=== PATIENT | female | born 2000 | race Two or more races ===

== ENCOUNTER 2019-11-20 18:46 | Outpatient (CLI) | payer SELFPAY ==
[2019-11-20 18:55] VITALS: BP 108/63; PULSE 85
[2019-11-20 19:25] VITALS: BP 108/63; PULSE 77; RESP 16; TEMP 36.6
[2019-11-20 19:26] VITALS: BP 108/63; PULSE 77; RESP 16; TEMP 36.6
[2019-11-20 19:42] VITALS: BMI 32.8
== END 2019-11-20 19:50 | disposition home or self-care (01) ==
LOC: OPOB 18:47 → OBGYN 18:49
PROVIDERS: Visit Provider Family Medicine
DX: O26.899 Other specified pregnancy related conditions, unspecified trimester (principal); Z3A.00 Weeks of gestation of pregnancy not specified; R10.9 Unspecified abdominal pain
CPT/HCPCS: 59025; 99211

== ENCOUNTER 2020-03-05 00:54 | Emergency (ER) | payer SELFPAY ==
[2020-03-05 01:05] VITALS: BP 105/68; PULSE 82; RESP 14; TEMP 36.8; O2SAT 92; BMI 25.8
[2020-03-05 01:39] LABS: HCG Qualitative Urine. Negative (Negative)
--- NOTE | 2020-03-05 01:55 | USR_ITS ---
PROCEDURE INFORMATION: Exam: US Abdomen Complete Exam date and time: 03/05/2020 3:26 AM Age: 19 years old Clinical indication: Abdominal pain; Acute; Patient HX: N? V with epigastric pain TECHNIQUE: Imaging protocol: Real-time ultrasound of the abdomen with image documentation. COMPARISON: No relevant prior studies available. FINDINGS: Liver: Normal. No mass. Gallbladder: Normal. No gallstones. There is no gallbladder wall thickening. Common bile duct: Normal. No stones. No dilation. Pancreas: Visualized pancreas is unremarkable. Right kidney: Normal. No mass. No hydronephrosis. Left kidney: Normal. No mass. No hydronephrosis. Spleen: Normal. No splenomegaly. Aorta: Normal. No aneurysm. Inferior vena cava: Normal. US/US abdomen complete* [id number] IMPRESSION: No acute findings.
[2020-03-05 02:00] LABS: Basophils % 0.3 %; Eosinophils # 0.2 10^3/uL (0.0-0.8); Hematocrit 42.5 % (37.0-47.0); Hemoglobin 13.6 g/dL (11.5-15.3); Lymphocytes # 2.6 10^3/uL (1.5-6.5); Lymphocytes % 38.4 %; Mean Corpuscular Hemoglobin 27.5 pg (28.0-34.0); Mean Corpuscular Volume 85.9 fL (81-99); Mean Platelet Volume 11.5 fL (7.4-10.4); Monocytes # 0.4 10^3/uL (0.2-0.9); Monocytes % 6.4 %; Neutrophils # 3.45 10^3/uL (1.8-8.0); Neutrophils % 51.8 %; Nucleated Red Blood Cells % 0 %; Platelet Count 269 10^3/cmm (130-400); Red Blood Count 4.95 10^6/uL (4.1-5.3); Red Cell Distribution Width 14.1 % (12.1-15.1); White Blood Count 6.7 10^3/uL (4.5-13.0)
[2020-03-05 02:08] LABS: Add Urine Microscopic? NO; Bilirubin Urine Neg (Negative); Blood Urine Neg (Negative); Glucose Urine UA Norm (Normal); Ketones Urine 1+ (Negative); Leukocyte Esterase Urine Negative (Negative); Nitrate Urine Negative (Negative); Protein Urine Neg (Negative); Specific Gravity, Urine 1.025 (1.005-1.030); Urine Appearance Clear (CLEAR); Urine Color Yellow (Yellow); Urobilinogen Urine Norm (Negative); pH Urine 5 (5-7)
[2020-03-05 02:25] LABS: Alanine Aminotransferase 10 U/L (0-33); Albumin Level 4.2 g/dL (3.5-5.2); Alkaline Phosphatase 115 IU/L (35-105); Anion Gap 12.8 (5-19); Aspartate Amino Transferase 13 U/L (0-32); Blood Urea Nitrogen 12 mg/dL (6-20); Calcium 9.2 mg/dL (8.5-10.5); Carbon Dioxide 24 mmol/L (22-29); Chloride 106 mmol/L (98-107); Glomerular Filtration Rate 157.3 mL/min (90-130); Glucose 99 mg/dL (65-115); Lipase 30 U/L (13-60); Osmolality Calculated 288 mOsm/kg (285-295); Potassium 3.8 mmol/L (3.5-5.1); Sodium 139 mmol/L (136-145); Total Bilirubin 0.2 mg/dL (0.15-1.2); Total Protein 7.2 g/dL (6.6-8.7)
--- NOTE | 2020-03-05 02:26 | ED_ITS ---
HPI - Abdominal Pain General: Chief Complaint: Abdominal Pain Stated Complaint: vomiting/severe upper abd pain/will need drMalgorzatanote Time Seen by Provider: 03/05/20 01:39 Source: patient Mode of arrival: ambulatory Limitations: no limitations History of Present Illness: HPI narrative: Sherman is a very nice 19-year-old female who comes in complaining of upper abdominal pain. She states the pain started tonight between 8 and 830 and continues. She has been very nauseated and has thrown up 5 times. She describes the pain is primarily the epigastric and the left upper quadrant. She states the pain feels some like labor pains with cramping but not quite as intense. She denies any fevers, chills, chest pain, shortness of breath or other complaint. Patient has no vaginal discharge or bleeding, no flank pain and denies any urinary symptoms such as urinary frequency/urgency or dysuria. Patient is unaware of anything that makes her symptoms better or worse. Associated Symptoms: Reports nausea and vomiting; Denies chills, coffee ground emesis, constipation, GI cramping, diarrhea, dysu russell, fever(s), heartburn, hematochezia, hematuria, hematemesis, melena and syncope Review of Systems Const: Denies: fever(s), chills, body aches, fatigue, malaise or diaphoresis Eyes: Denies: change in vision, blurry vision, photophobia, eye discomfort, eye discharge, eye redness or yellow eyes ENMT: Denies: throat pain, odynophagia, hoarseness, swelling of lips/tongue, ear or mastoid pain, ear discharge, change in hearing or nasal discharge Card: Denies: chest pain, palpitations, irregular heart rhythm, edema, lightheadedness, syncope, pre-syncope, dyspnea on exertion or orthopnea Resp: Denies: dyspnea, productive cough, non-productive cough, wheezing, hemoptysis or chest congestion GI: Reports: abdominal pain, nausea and vomiting; Denies: hematemesis, coffee ground emesis, heartburn, diarrhea, constipation, GI cramping, hematochezia or melena : Denies: flank pain, dysuria, urinary frequency, urinary urgency or hematuria Musc: Denies: neck pain, back pain, extremity pain, extremity swelling, joint pain, joint swelling, joint redness, joint warmth or joint stiffness Skin/Breast: Denies: rash, pruritus, erythema, skin pain or skin tenderness Neuro: Denies: headache(s), numbness in extremities, weakness in extremities, sensory changes, lack of coordination, difficulty walking, dizziness, vertigo, confusion, Slurred speech present or seizure-like activity Vivek/Lymph: Denies: easy bruising, easy bleeding, petechiae, purpura or enlarged lymph nodes All/Imm: Denies: urticaria, throat swelling, tongue swelling, facial swelling or acute wheezing PFSH ED PFSH: Medical History No pertinent past medical history Surgical History No pertinent past surgical history Female Reproductive History: : 2 Physical Exam Const: COMMON NORMALS: no acute distress, patient oriented x3, no limitations and alert GENERAL APPEARANCE: cooperative HENMT: COMMON NORMALS: normocephalic, atraumatic, external ears normal, EAC's normal and Normal external nose present HEAD & SCALP: normal to inspection, normocephalic and atraumatic FACE & SINUS: normal facial exam and face symmetric NOSE: Normal external nose present and Normal nares present EXTERNAL EAR: Yes external ears normal EXTERNAL AUDITORY CANAL: EAC's normal MOUTH: Normal oral and palatal mucosa present, lip normal and tongue normal Eye: COMMON NORMALS: Equal, round and reactive pupils present and conjunctivae normal GENERAL EYE: appearance normal, both eyes and all related structures ALIGNMENT: Yes alignment normal PERIORBITAL: periorbital findings normal EYELID: eyelids normal CONJUNCTIVA: Yes conjunctivae normal SCLERA: sclerae normal PUPIL: Yes Equal, round and reactive pupils present Neck/C-Spine: COMMON NORMALS: full ROM, no lymphadenopathy, supple, no meningeal signs and no JVD GENERAL: Yes normal visual inspection and Yes trachea midline Chest: COMMONS NORMALS: normal inspection of the chest and normal palpation of entire chest wall Resp: COMMON NORMALS: normal respiratory effort, No retractions, No use of accessory muscles and clear to auscultation bilaterally EFFORT & INSPECTION: Yes able to speak in complete sentences and Yes symmetric chest movement AUSCULTATION: clear to auscultation bilaterally, no crackles, no rales, no rhonchi and no wheezes Cardio: COMMON NORMALS: no JVD, regular rate, regular rhythm, S1 normal heart sound present and S2 normal heart sound present RATE: regular rate RHYTHM: regular rhythm HEART SOUNDS: S1 normal heart sound present, S2 normal heart sound present, no click, no gallops, no murmurs and no rubs GI: COMMON NORMALS: Soft to palpation and No hepatosplenomegaly present PALPATION: Yes Soft to palpation, No Tenderness to palpation present (GI), No Guarding due to palpation present (GI), No Rigid due to palpation, Yes No hepatosplenomegaly present, No Hernia present, No Palpable mass present and No Pulsatile mass present : COMMON NORMALS: Yes no CVA tenderness BLADDER/KIDNEY EXAM: Yes no CVA tenderness EXTERNAL FEMALE EXAM: No Hernia present Back/Pelvis: COMMON NORMALS: no CVA tenderness, thoracic and lumbar spine normal to inspection, no thoracic nor lumbar tenderness and thoraco-lumbar ROM normal Extremity: COMMON NORMALS: normal to inspection, full ROM, capillary refill normal, no joint enlargement, no clubbing, cyanosis or edema and no calf tenderness Neuro: COMMON NORMALS: patient oriented x3, CN's II-XII intact bilaterally, moves all extremities, no focal motor deficits and no sensory deficits noted SENSORIUM/ORIENTATION: Yes alert MENINGEAL SIGNS: Yes no meningeal signs SPEECH: speech normal Psych: COMMON NORMALS: mental status grossly normal, Normal thought process present, cooperative, normal affect, speech normal and activity/motor behavior normal SPEECH: Yes normal speech THOUGHT PROCESS: Normal thought process present Skin: COMMON NORMALS: no rashes or lesions noted, turgor normal, no jaundice, no petechiae and no mottling GENERAL SKIN EXAM: no rashes or lesions noted and turgor normal Course Vital Signs: Vital signs: Vital Signs Temperature 98.2 F 03/05/20 01:05 Pulse Rate 64 03/05/20 04:30 Respiratory Rate 17 03/05/20 02:36 Blood Pressure 111/74 03/05/20 04:30 Pulse Oximetry 99 03/05/20 04:30 MDM - Abdominal Pain MDM Narrative: Medical decision making narrative: Sherman is a very nice 19-year-old female comes in with a complaint of left upper quadrant and epigastric pain. Patient has not vomited here and her labs are unremarkable. Ultrasound is unremarkable. The feels likely more gastritis. Patient is not with significant tenderness to suggest diverticulitis. The pain is in the opposite side of the abdomen from the appendix and I think appendicitis is unlikely. Patient has no pain McBurney's point. Differential diagnosis for this pain is extensive including gastritis, peptic ulcer disease, pancreatitis, gastroenteritis among many others. At this time with her pain resolved and her labs and work-up to this point normal I believe the patient can safely be discharged. She agrees to return should her symptoms change or worsen but she will follow-up with the doctor as an outpatient if her pain returns. Patient also understands she return here at any time should her symptoms change or worsen. Differential Diagnosis: Differential diagnosis abdominal pain: Likely abdominal pain, constipation, diverticulitis, gastroenteritis, pancreatitis and small bowel obstruction Lab Data: Attestation: I reviewed the patient's lab results. Labs: Lab Results 03/05/20 03/05/20 03/05/20 Range/Units 01:16 01:16 01:57 WBC 6.7 (4.5-13.0) 10^3/ uL RBC 4.95 (4.1-5.3) 10^6/u L Hgb 13.6 (11.5-15.3) g/dL Hct 42.5 (37.0-47.0) % MCV 85.9 (81-99) fL MCH 27.5 L (28.0-34.0) pg MCHC 32.0 (30.0-36.0) g/dL RDW 14.1 (12.1-15.1) % Plt Count 269 (130-400) 10^3/c mm MPV 11.5 H (7.4-10.4) fL Neut % (Auto) 51.8 % Lymph % (Auto) 38.4 % [place] % (Auto) 6.4 % Eos % (Auto) 3.0 % Baso % (Auto) 0.3 % Neut # (Auto) 3.45 (1.8-8.0) 10^3/u L Lymph # (Auto) 2.6 (1.5-6.5) 10^3/u L [place] # (Auto) 0.4 (0.2-0.9) 10^3/u L Eos # (Auto) 0.2 (0.0-0.8) 10^3/u L Baso # (Auto) 0.0 (0.0-0.1) 10^3/u L Nucleated RBC % (a uto) 0 % Nucleated RBCs # 0.0 /100WBC Sodium (136-145) mmol/L Potassium (3.5-5.1) mmol/L Chloride (98-107) mmol/L Carbon Dioxide (22-29) mmol/L Anion Gap (5-19) BUN (6-20) mg/dL Creatinine (0.5-0.9) mg/dL GFR Calculation (90-130) mL/min Glucose (65-115) mg/dL Calculated Osmolal ity (285-295) mOsm/k g Calcium (8.5-10.5) mg/dL Total Bilirubin (0.15-1.2) mg/dL AST (0-32) U/L ALT (0-33) U/L Alkaline Phosphata se (35-105) IU/L Total Protein (6.6-8.7) g/dL Albumin (3.5-5.2) g/dL Globulin (1.3-4.6) g/dL Lipase (13-60) U/L HCG, Qual Negative (Negative) Urine Color Yellow (Yellow) Urine Appearance Clear (CLEAR) Urine pH 5 (5-7) Ur Specific Gravit y 1.025 (1.005-1.030) Urine Protein Neg (Negative) Urine Glucose (UA) Norm (Normal) Urine Ketones 1+ H (Negative) Urine Blood Neg (Negative) Urine Nitrate Negative (Negative) Urine Bilirubin Neg (Negative) Urine Urobilinogen Norm (Negative) mg/dL Ur Leukocyte Kasia ase Negative (Negative) 03/05/20 Range/Units 01:57 WBC (4.5-13.0) 10^3/ uL RBC (4.1-5.3) 10^6/u L Hgb (11.5-15.3) g/dL Hct (37.0-47.0) % MCV (81-99) fL MCH (28.0-34.0) pg MCHC (30.0-36.0) g/dL RDW (12.1-15.1) % Plt Count (130-400) 10^3/c mm MPV (7.4-10.4) fL Neut % (Auto) % Lymph % (Auto) % [place] % (Auto) % Eos % (Auto) % Baso % (Auto) % Neut # (Auto) (1.8-8.0) 10^3/u L Lymph # (Auto) (1.5-6.5) 10^3/u L [place] # (Auto) (0.2-0.9) 10^3/u L Eos # (Auto) (0.0-0.8) 10^3/u L Baso # (Auto) (0.0-0.1) 10^3/u L Nucleated RBC % (a uto) % Nucleated RBCs # /100WBC Sodium 139 (136-145) mmol/L Potassium 3.8 (3.5-5.1) mmol/L Chloride 106 (98-107) mmol/L Carbon Dioxide 24 (22-29) mmol/L Anion Gap 12.8 (5-19) BUN 12 (6-20) mg/dL Creatinine 0.5 (0.5-0.9) mg/dL GFR Calculation 157.3 H (90-130) mL/min Glucose 99 (65-115) mg/dL Calculated Osmolal ity 288 (285-295) mOsm/k g Calcium 9.2 (8.5-10.5) mg/dL Total Bilirubin 0.2 (0.15-1.2) mg/dL AST 13 (0-32) U/L ALT 10 (0-33) U/L Alkaline Phosphata se 115 H (35-105) IU/L Total Protein 7.2 (6.6-8.7) g/dL Albumin 4.2 (3.5-5.2) g/dL Globulin 3.0 (1.3-4.6) g/dL Lipase 30 (13-60) U/L HCG, Qual (Negative) Urine Color (Yellow) Urine Appearance (CLEAR) Urine pH (5-7) Ur Specific Gravit y (1.005-1.030) Urine Protein (Negative) Urine Glucose (UA) (Normal) Urine Ketones (Negative) Urine Blood (Negative) Urine Nitrate (Negative) Urine Bilirubin (Negative) Urine Urobilinogen (Negative) mg/dL Ur Leukocyte Kasia ase (Negative) Imaging Data ^: US: My impression: Ultrasound abdomen, tech interpretation -no acute findings. Discharge Plan Discharge Patient Disposition: Home Clinical Impression: Abdominal pain Qualifiers: Abdominal location: upper abdomen, unspecified Qualified Code(s): R10.10 - Upper abdominal pain, unspecified Condition: Stable Prescriptions: New Zofran 4 mg tablet 4 mg PO Q6H PRN (Reason: nausea and vomiting) Qty: 20 RF: 0 Protonix 40 mg tablet,delayed release (DR/EC) 40 mg PO DAILY Qty: 30 RF: 0 Discharge Orders: Discharge ED (Routine); Ordered 03/05/20 Ordered By: Jacque Yang Referrals: Joel Zamora MD [Physician] - 1-3 days Discharge Diet: Advance as tolerated and Clear Liquid Discharge Activity: Increase activity as tolerated Patient Instructions: Abdominal Pain (ED) Activity Restrictions/Additional Instructions: Please return to the ER immediately for any of the signs or symptoms listed on your discharge instruction sheets, worsening/changing of your symptoms, you are not getting better as quickly as expected, or for ANY other cause or concerns. If your pain migrates to the lower part of your abdomen, he develop a fever, you can stop vomiting, or you have any other concerns please return to the ER immediately for recheck. Stand Alone Forms: Work/School Release Coding Level of Care Code ED Firestopper Installer for Ceci Fwd Exam Comprehensive
[2020-03-05] MEDS: ondansetron 2 mg/ML SDV 2 mL 4 MG IVP (02:29)
[2020-03-05] MEDS: sodium chloride 0.9% 1,000 ML 999 ML IV (02:29)
[2020-03-05] MEDS: morphine 4 mg/mL SDV 1 mL IVP (02:33)
[2020-03-05 02:36] VITALS: BP 100/68; PULSE 63; RESP 17; O2SAT 98
[2020-03-05] MEDS: acetaminophen 500 mg Tablet 1000 MG PO (04:29)
[2020-03-05 04:30] VITALS: BP 111/74; PULSE 64; O2SAT 99
== END 2020-03-05 04:30 | disposition home or self-care (01) ==
PROVIDERS: Nurse Practitioner Family; Emergency Provider Emergency Medicine
DX: R10.10 Upper abdominal pain, unspecified (principal)
CPT/HCPCS: 12345; 76700; 80053; 81003; 81025; 83690; 85025; 96374; 96375; 99282; 99283; J2270; J2405; J7030

== ENCOUNTER 2020-04-16 14:28 | Emergency (ER) | payer SELFPAY ==
[2020-04-16 14:51] VITALS: BP 105/70; PULSE 67; RESP 14; TEMP 36.3; O2SAT 98; BMI 25.8
--- NOTE | 2020-04-16 14:52 | W.ED.EXTPRO ---
HPI - Extremity Problem General: Chief complaint: Extremity Problem,Nontraumatic Stated complaint: R HIP INJURY/WORK RELATED Time Seen by Provider: 04/16/20 14:52 Source: patient Mode of arrival: ambulatory Limitations: no limitations History of Present Illness: HPI Narrative: Patient comes in for evaluation of right hip discomfort. 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 Causing her right hip to displace. Patient reports that when she got the patient back to bed she walked a little bit and the hip seemed to go back into place. Patient denies any pain or discomfort to the area. But since patient made incident report at her place of employment and ultimate surgery she was recommended to have further evaluation in order to return to work. Patient appears well. Patient appears no acute distress. Review of Systems General: Reports: 10 or more systems reviewed and unremarkable except in HPI and below Musc: Reports: other (Right hip injury) [facility] ED PFSH: Medical History No pertinent past medical history Surgical History No pertinent past surgical history Physical Exam Const: COMMON NORMALS: no acute distress and patient oriented x3 GENERAL APPEARANCE: cooperative HENMT: COMMON NORMALS: normocephalic and Normal external nose present HEAD & SCALP: normal to inspection and normocephalic NOSE: Normal external nose present MOUTH: Normal oral and palatal mucosa present Eye: GENERAL EYE: appearance normal, both eyes and all related structures Neck/C-Spine: COMMON NORMALS: full ROM Lymph: LYMPHATIC: no lymphadenopathy noted Chest: COMMONS NORMALS: normal inspection of the chest Resp: COMMON NORMALS: normal respiratory effort EFFORT & INSPECTION: Yes able to speak in complete sentences Cardio: COMMON NORMALS: regular rate and regular rhythm RATE: regular rate RHYTHM: regular rhythm GI: COMMON NORMALS: non-tender : COMMON NORMALS: Yes no CVA tenderness BLADDER/KIDNEY EXAM: Yes no CVA tenderness Back/Pelvis: COMMON NORMALS: no CVA tenderness and thoracic and lumbar spine normal to inspection Extremity: NARRATIVE EXTREMITY EXAM: Patient is able to perform range of motion without difficulty or distress. Patient has normal weightbearing. No spinal tenderness is noted. Neuro: COMMON NORMALS: patient oriented x3 and moves all extremities Psych: COMMON NORMALS: mental status grossly normal and cooperative Skin: COMMON NORMALS: no rashes or lesions noted GENERAL SKIN EXAM: no rashes or lesions noted Course Vital Signs: Vital signs: Vital Signs Temperature 97.4 F L 04/16/20 14:51 Pulse Rate 65 04/16/20 15:00 Respiratory Rate 16 04/16/20 15:00 Blood Pressure 105/70 04/16/20 15:00 Pulse Oximetry 97 04/16/20 15:00 MDM - Extremity (Nontraumatic) MDM Narrative: Medical decision making narrative: Patient came in for evaluation after injury to the right hip. On exam patient has no tenderness or obvious deformity to the hip or right lower extremity. Patient has normal range of motion. Patient has normal weightbearing and ambulation without difficulty. Vital signs are normal. Differential diagnosis includes strain, sprain, dislocation, degenerative joint disease. Reviewed exam with patient with recommendations for treatment and return to work. Patient reported understanding. Discharge Plan Discharge Patient Disposition: Home Clinical Impression: Hip sprain Qualifiers: Encounter type: initial encounter Laterality: right Qualified Code(s): S73.101A - Unspecified sprain of right hip, initial encounter Condition: Stable Prescriptions: No Action Zofran 4 mg tablet 4 mg PO Q6H PRN (Reason: nausea and vomiting) Qty: 20 RF: 0 Protonix 40 mg tablet,delayed release (DR/EC) 40 mg PO DAILY Qty: 30 RF: 0 Discharge Orders: Discharge ED (Routine); Ordered 04/16/20 Ordered By: Yoni Morel Referrals: Bea Johnson FNP-C [Primary Care Provider] - Discharge Diet: Usual diet Discharge Activity: Increase activity as tolerated Patient Instructions: Sprains Activity Restrictions/Additional Instructions: Activity as tolerated. Gentle stretching and range of motion exercises. Ice or heat to the area for comfort. Acetaminophen or ibuprofen for pain. Follow-up with primary care as needed. Return to the emergency department for new concerns. Stand Alone Forms: Work/School Release Coding Level of Care Code ED Clinical Laboratory Medical Director for Ceci Vallecillo
[2020-04-16 15:00] VITALS: BP 105/70; PULSE 65; RESP 16; O2SAT 97
--- NOTE | 2020-04-16 15:07 | PC.NURSE ---
Read and agree with assessment
== END 2020-04-16 15:13 | disposition home or self-care (01) ==
PROVIDERS: Emergency Provider Nurse Practitioner Family; PCP Nurse Practitioner Family
DX: S73.101A Unspecified sprain of right hip, initial encounter (principal); W03.XXXA Other fall on same level due to collision with another person, initial encounter; Y99.0 Civilian activity done for income or pay; Y93.F9 Activity, other caregiving
CPT/HCPCS: 12345; 99281

== ENCOUNTER 2020-07-12 09:45 | Emergency (ER) | payer SELFPAY ==
[2020-07-12 10:35] VITALS: BP 110/73; PULSE 69; RESP 16; TEMP 36.6; O2SAT 100; BMI 27.4
[2020-07-12 10:39] VITALS: BP 110/62; PULSE 68; RESP 18; O2SAT 96
--- NOTE | 2020-07-12 11:02 | ED_ITS ---
HPI - Female Genitourinary General: Chief complaint: General Medical Stated complaint: poss blood clotting, no period for 3 months Time Seen by Provider: 07/12/20 10:45 Source: patient Mode of arrival: ambulatory Limitations: no limitations History of Present Illness: HPI Narrative: Patient is a 19-year-old female who presents to ED today with a complaint of missed periods over the past 2 to 3 months. Patient tells me she is approximately 7 months post . She states periods returned fairly quickly following the of her son however states over the past 2 to 3 months she has not had period. She states she is currently trying for another child but took a home test that was negative. She tells me at the age of 13 she had a few months where she missed her period and states she was hospitalized for some type of clotting problem in her uterus. She states she was having lower abdominal/pelvic pain at the time which she is not having now. She is completely asymptomatic at the time. She does not complain of vaginal discharge or odor. No dysuria. No itching, burning, rashes/lesions. MD elicited complaint: delayed menses Onset (ago): month(s) Quality of pain: other (none) Vaginal discharge: none Vaginal bleeding: none Exacerbating factors: none Relieving factors: none Associated symptoms: Reports no associated symptoms; Deny abdominal pain, headache(s), nausea or vaginal discharge Treatment prior to arrival: none Sexual activity: Yes Patient : No Date of Last Menstrual Period: 04/11/20 Review of Systems Const: Denies: fever(s), chills, body aches, fatigue or malaise Card: Denies: chest pain Resp: Denies: dyspnea GI: Denies: abdominal pain, nausea, vomiting or diarrhea : Reports: irregular period and amenorrhea; Denies: flank pain, difficulty voiding, dysuria, urinary frequency, urinary urgency, urinary hesitancy, hematuria, genital lesions, genital pruritis, vaginal odor, vaginal bleeding, vaginal discharge, dysmenorrhea, metrorrhagia, pelvic pain or dyspareunia Musc: Denies: back pain Skin/Breast: Denies: rash Neuro: Denies: headache(s) PFSH ED PFSH: Medical History No pertinent past medical history Surgical History No pertinent past surgical history Female Reproductive History: Date of last menstrual period: 04/11/20 Physical Exam Const: COMMON NORMALS: no acute distress, average body habitus, patient oriented x3, no limitations, healthy appearing, alert and well nourished Resp: COMMON NORMALS: normal respiratory effort and clear to auscultation bilaterally AUSCULTATION: clear to auscultation bilaterally Cardio: COMMON NORMALS: regular rate and regular rhythm RATE: regular rate RHYTHM: regular rhythm GI: COMMON NORMALS: Normal to inspection, nondistended, normoactive bowel sounds present, Soft to palpation, non-tender, No hepatosplenomegaly present and no masses PALPATION: Yes Soft to palpation and Yes No hepatosplenomegaly present : COMMON NORMALS: Yes no CVA tenderness BLADDER/KIDNEY EXAM: Yes no CVA tenderness Back/Pelvis: COMMON NORMALS: no CVA tenderness LUMBAR SPINE/LOWER BACK: Yes normal to inspection, Yes lumbar ROM normal and No paraspinal muscle tenderness Neuro: COMMON NORMALS: patient oriented x3 SENSORIUM/ORIENTATION: Yes alert Course Vital Signs: Vital signs: Vital Signs Temperature 97.9 F 07/12/20 10:35 Pulse Rate 68 07/12/20 10:39 Respiratory Rate 18 07/12/20 10:39 Blood Pressure 110/62 07/12/20 10:39 Pulse Oximetry 96 07/12/20 10:39 MDM - Female MDM Narrative: Medical decision making narrative: Patient's test is negative. She has absolutely no physical complaints at this time. I don't feel emergent labs/imaging indicated. Explained to her that menstrual cycles can be rather sporadic . She does seemed very concerned regarding this thus I will place a referral to gynecology for further evaluation. Lab Data: Labs: Lab Results 07/12/20 Range/Units 11:05 Urine HCG, Qual Negative (Negative) Discharge Plan Discharge Patient Disposition: Home Clinical Impression: Secondary amenorrhea Condition: Stable Prescriptions: No Action Children's Tylenol 160 mg Tablet,Chewable 320 mg PO PRN RF: 0 ProAir HFA 90 mcg/actuation Hfa Aerosol Inhaler 2 puff INHALATION Q4H PRN (Reason: Shortness Of Breath) RF: 0 sumatriptan succinate 1 tab PO PRN RF: 0 Discharge Orders: Discharge ED (Routine); Ordered 07/12/20 Ordered By: Shona Kirk Coding Level of Care Code ED Facilities Engineering Manager for Chg Fwd Exam Detailed
--- NOTE | 2020-07-18 14:38 | DCPLANNER ---
talent acquisition relationship manager had message to schedule a follow up appointment for patient with [facility]. talent acquisition relationship manager called the [facility], spoke with Alysia, gave clinic patients information. talent acquisition relationship manager was told that patients information would be printed and reviewed. Clinic will call patient with appointment information.
--- NOTE | 2020-09-25 07:57 | DCPLANNER ---
Patient had a follow up appointment scheduled for 07.27.20 with [facility] - patient did not attend appointment.
== END 2020-07-12 12:46 | disposition home or self-care (01) ==
PROVIDERS: Emergency Provider Physician Assistant
DX: N91.1 Secondary amenorrhea (principal)
CPT/HCPCS: 81025; 99282

== ENCOUNTER 2020-11-02 16:27 | Emergency (ER) | payer SELFPAY ==
[2020-11-02 17:10] VITALS: PULSE 73; RESP 18; TEMP 37; O2SAT 99; BMI 28.2
--- NOTE | 2020-11-02 17:46 | ED_ITS ---
HPI - Nausea/Vomiting/Diarrhea General: Chief complaint: Nausea/Vomiting/Diarrhea Stated complaint: SYNCOPAL EPISODE, N/V, FONG Time Seen by Provider: 11/02/20 17:40 History of Present Illness: HPI Narrative: Patient presents with nausea and vomiting. Patient now reports headache. Patient does have a history of migraine headache and believes this might be a migraine. Patient does not know if she may be . Patient reports has had migraine headaches since high school after a head injury Associated symtoms: Reports headache(s) Review of Systems General: Reports: 10 or more systems reviewed and unremarkable except in HPI and below Neuro: Reports: headache(s) PFSH ED PFSH: Medical History No pertinent past medical history Surgical History No pertinent past surgical history Family History (Updated 07/27/20 @ 12:06 by Patricia Roach LPN) Denies family history of Ovarian cyst Thyroid disease Female Reproductive History: Date of last menstrual period: 04/11/20 Physical Exam Const: COMMON NORMALS: no acute distress and patient oriented x3 GENERAL APPEARANCE: cooperative HENMT: COMMON NORMALS: normocephalic and Normal external nose present HEAD & SCALP: normal to inspection and normocephalic NOSE: Normal external nose present MOUTH: Normal oral and palatal mucosa present Eye: GENERAL EYE: appearance normal, both eyes and all related structures Neck/C-Spine: COMMON NORMALS: full ROM Chest: COMMONS NORMALS: normal inspection of the chest Resp: COMMON NORMALS: normal respiratory effort EFFORT & INSPECTION: Yes able to speak in complete sentences Cardio: COMMON NORMALS: regular rate and regular rhythm RATE: regular rate RHYTHM: regular rhythm GI: COMMON NORMALS: non-tender Back/Pelvis: COMMON NORMALS: thoracic and lumbar spine normal to inspection Extremity: COMMON NORMALS: normal to inspection Neuro: COMMON NORMALS: patient oriented x3 and moves all extremities Psych: COMMON NORMALS: mental status grossly normal and cooperative Skin: COMMON NORMALS: no rashes or lesions noted GENERAL SKIN EXAM: no rashes or lesions noted Course Vital Signs: Vital signs: Vital Signs Temperature 98.6 F 11/02/20 17:10 Pulse Rate 73 11/02/20 17:10 Respiratory Rate 18 11/02/20 18:37 Pulse Oximetry 99 08/26/21 17:10 MDM - Nausea/Vomiting/Diarrhea MDM Narrative: Medical decision making narrative: 20-year-old female comes in today with some nausea and vomiting and a headache. Patient has a history of migraine headaches. Patient appears mildly unwell but nontoxic. Skin was warm and dry. Abdomen soft nontender. No tenderness was noted of the neck and negative nuchal rigidity. Differential diagnosis includes migraine headache, , gastroenteritis. Patient was given a dose of sumatriptan per injection and tolerated it well with good headache cessation response. Patient was written prescriptions for home migraine treatment. Patient will continue with routine care otherwise as directed. test was negative. Lab Data: Labs: Lab Results 11/02/20 Range/Units 17:41 Urine HCG, Qual Negative (Negative) Discharge Plan Discharge Patient Disposition: Home Clinical Impression: Migraine Qualifiers: Migraine type: unspecified Status migrainosus presence: without status migrainosus Intractability: not intractable Qualified Code(s): G43.909 - Migraine, unspecified, not intractable, without status migrainosus Condition: Stable Prescriptions: New sumatriptan succinate 50 mg tablet See Rx Instructions .ROUTE .COMPLEX Qty: 6 RF: 0 No Action Children's Tylenol 160 mg Tablet,Chewable 320 mg PO PRN RF: 0 ProAir HFA 90 mcg/actuation Hfa Aerosol Inhaler 2 puff INHALATION Q4H PRN (Reason: Shortness Of Breath) RF: 0 sumatriptan succinate 1 tab PO PRN RF: 0 Discharge Orders: Discharge ED (Routine); Ordered 11/02/20 Ordered By: Yoni Morel Discharge Diet: Usual diet Discharge Activity: Increase activity as tolerated Patient Instructions: Migraine Headache (ED), Opioid Safety Activity Restrictions/Additional Instructions: Activity as tolerated. Drink plenty of water. Use sumatriptan as needed for breakthrough headaches. Follow-up with primary care for further instructions. Return to the ER for new concerns. Coding Level of Care Code ED Engraver Ornamental Design for Ceci Fwd Exam Comprehensive
[2020-11-02] MEDS: SUMAtriptan 6 mg/0.5 mL SDV SUBCUT (18:06)
[2020-11-02 18:37] VITALS: RESP 18
--- NOTE | 2020-11-02 18:37 | PC.NURSE ---
patient states she doesnt want to wait any longer for results of urine test and wants to be discharged now as her ride is here and she has to go.
== END 2020-11-02 18:37 | disposition home or self-care (01) ==
PROVIDERS: Emergency Provider Nurse Practitioner Family
DX: G43.909 Migraine, unspecified, not intractable, without status migrainosus (principal)
CPT/HCPCS: 81025; 96372; 99283; J3030

== ENCOUNTER 2021-03-07 12:42 | Emergency (ER) | payer SELFPAY ==
--- NOTE | 2021-03-07 13:11 | US_ITS ---
WS: [id number] ULTRASOUND EARLY TECHNIQUE: Transabdominal sonography of the pelvis was performed. Followed by transvaginal sonography to better evaluate the uterus and ovaries. CLINICAL INFORMATION: /bleeding LMP: 01/17/2021 Beta hCG: Unknown. COMPARISON: None. FINDINGS: UTERUS AND GESTATIONAL SAC Intrauterine gestations: Single interuterine gestation with gestational sac and yolk sac. pole measures 4.3 mm with card iac activity. Cervix is long and closed measuring 3.6 cm. Yet sac is visualized. Estimated gestational age: 6w2d Estimated delivery October 29, 2021 Yolk sac: 0.4 cm. [place] rump length (CRL): 0.4 cm. heart motion: 122 BPM. Subchorionic hemorrhage: None. OVARIES Right ovary: Normal. Left ovary: Normal. FREE FLUID None. US/US OB transvaginal [id number] IMPRESSION: 1. Single live intrauterine with visualized cardiac activity. 2. Estimated gestational age; 6w2d 3. Cervix is long and closed measuring 3.6 CM. 4. Normal ovaries and adnexa.
[2021-03-07 14:04] VITALS: BP 105/61; PULSE 65; RESP 16; TEMP 37.1; O2SAT 99; BMI 26.1
[2021-03-07 14:31] LABS: Basophils % 0.2 %; Eosinophils # 0.1 10^3/uL (0.0-0.8); Eosinophils % 0.5 %; Hematocrit 41.4 % (37.0-47.0); Hemoglobin 13.7 g/dL (11.5-15.3); Lymphocytes # 2.2 10^3/uL (0.8-4.8); Lymphocytes % 18.1 %; Mean Corpuscular HGB Conc 33.1 g/dL (30.0-36.0); Mean Corpuscular Hemoglobin 28.8 pg (28.0-34.0); Mean Platelet Volume 10.6 fL (7.4-10.4); Monocytes # 0.7 10^3/uL (0.2-0.9); Monocytes % 5.8 %; Neutrophils # 9.03 10^3/uL (1.8-7.7); Neutrophils % 75.1 %; Nucleated Red Blood Cells % 0 %; Platelet Count 408 10^3/cmm (130-400); Red Blood Count 4.76 10^6/uL (4.1-5.3); Red Cell Distribution Width 12.5 % (12.1-15.1)
[2021-03-07 15:07] LABS: Alanine Aminotransferase 7 U/L (0-33); Albumin Level 4.3 g/dL (3.5-5.2); Alkaline Phosphatase 80 IU/L (35-105); Anion Gap 15.6 (5-19); Aspartate Amino Transferase 10 U/L (0-32); Blood Urea Nitrogen 7 mg/dL (6-20); Calcium 8.9 mg/dL (8.5-10.5); Carbon Dioxide 24 mmol/L (22-29); Chloride 102 mmol/L (98-107); Creatinine Clr Calc Pharmacy 152.1296; Globulin 3.4 g/dL (1.3-4.6); Glomerular Filtration Rate 126.2 mL/min (90-130); Glucose 67 mg/dL (65-115); Osmolality Calculated 282 mOsm/kg (285-295); Potassium 3.6 mmol/L (3.5-5.1); Sodium 138 mmol/L (136-145); Total Bilirubin 0.4 mg/dL (0.15-1.2); Total Protein 7.7 g/dL (6.6-8.7)
--- NOTE | 2021-03-07 15:49 | ED_ITS ---
HPI - Female Genitourinary General: Chief complaint: Vaginal Bleeding Stated complaint: 7 Wks preg spotting Time Seen by Provider: 03/07/21 15:40 Source: patient Mode of arrival: ambulatory Limitations: no limitations History of Present Illness: HPI Narrative: Patient is a 20-year-old female presents to ED today at approximately 7 weeks for concerns of some vaginal spotting she had 2 days ago. She has not had any bleeding since. She does not complain of any pelvic pain or abdominal pain. No vaginal discharge or vaginal odor. No concern for STDs. She has a separate complaint of nausea and vomiting that have been present over the past week. She has tried dietary changes without much relief. 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 Consistency: intermittent Vaginal discharge: none Vaginal bleeding: none Exacerbating factors: other (eating) Relieving factors: none Associated symptoms: Reports nausea; Deny abdominal pain or vaginal discharge Sexual activity: Yes Patient : Yes Date of Last Menstrual Period: 04/11/20 Review of Systems Const: Denies: fever(s), chills, body aches, fatigue or malaise Card: Denies: chest pain Resp: Denies: dyspnea GI: Reports: nausea and vomiting; Denies: abdominal pain, hematemesis, heartburn or diarrhea : Reports: vaginal bleeding (none currently); Denies: flank pain, dysuria, vaginal odor, vaginal discharge or pelvic pain Musc: Denies: back pain [facility] ED PFSH: Medical History No pertinent past medical history Surgical History No pertinent past surgical history Family History (Updated 07/27/20 @ 12:06 by Patricia Roach LPN) Denies family history of Ovarian cyst Thyroid disease Female Reproductive History: Date of last menstrual period: 04/11/20 Physical Exam Const: COMMON NORMALS: no acute distress, average body habitus, patient oriented x3, no limitations, healthy appearing, alert and well nourished GENERAL APPEARANCE: cooperative Resp: COMMON NORMALS: normal respiratory effort and clear to auscultation bilaterally AUSCULTATION: clear to auscultation bilaterally Cardio: COMMON NORMALS: regular rate and regular rhythm RATE: regular rate RHYTHM: regular rhythm GI: COMMON NORMALS: Normal to inspection, nondistended, normoactive bowel sounds present, Soft to palpation, non-tender, No hepatosplenomegaly present and no masses PALPATION: Yes Soft to palpation and Yes No hepatosplenomegaly present : COMMON NORMALS: Yes no CVA tenderness BLADDER/KIDNEY EXAM: Yes no CVA tenderness Back/Pelvis: COMMON NORMALS: no CVA tenderness Neuro: COMMON NORMALS: patient oriented x3 SENSORIUM/ORIENTATION: Yes alert Course Vital Signs: Vital signs: Vital Signs Temperature 98.8 F 03/07/21 14:04 Pulse Rate 65 03/07/21 14:04 Respiratory Rate 16 03/07/21 14:04 Blood Pressure 105/61 03/07/21 14:04 Pulse Oximetry 99 03/07/21 14:04 MDM - Female MDM Narrative: Medical decision making narrative: Patient's ultrasound showing a single live IUP at approximately 6w2d with a heart rate of 122. She is not having any vaginal bleeding or pain currently. Vital signs are normal. Lab work is unremarkable. Patient will be given a prescription for Diclegis that she can start for her nausea/vomiting. Referral placed to women's health for further/routine OB care. Strict return to ED precautions given. Lab Data: Labs: Lab Results 03/07/21 03/07/21 03/07/21 14:13 14:13 15:48 WBC 12.0 10^3/uL H 10 ^3/uL (4.0-10.0) RBC 4.76 10^6/uL 10^6 /uL (4.1-5.3) Hgb 13.7 g/dL g/dL (11.5-15.3) Hct 41.4 % % (37.0-47.0) MCV 87.0 fl fl (81-99) MCH 28.8 pg pg (28.0-34.0) MCHC 33.1 g/dL g/dL (30.0-36.0) RDW 12.5 % % (12.1-15.1) Plt Count 408 10^3/cmm H 10 ^3/cmm (130-400) MPV 10.6 fL H fL (7.4-10.4) Neut % (Auto) 75.1 % % Lymph % (Auto) 18.1 % % Amador % (Auto) 5.8 % % Eos % (Auto) 0.5 % % Baso % (Auto) 0.2 % % Neut # (Auto) 9.03 10^3/uL H 10 ^3/uL (1.8-7.7) Lymph # (Auto) 2.2 10^3/uL 10^3/ uL (0.8-4.8) Amador # (Auto) 0.7 10^3/uL 10^3/ uL (0.2-0.9) Eos # (Auto) 0.1 10^3/uL 10^3/ uL (0.0-0.8) Baso # (Auto) 0.0 10^3/uL 10^3/ uL (0.0-0.1) Nucleated RBC % (a uto) 0 % % Nucleated RBCs # 0.0 /100WBC /100W BC Sodium 138 mmol/L mmol/L (136-145) Potassium 3.6 mmol/L mmol/L (3.5-5.1) Chloride 102 mmol/L mmol/L (98-107) Carbon Dioxide 24 mmol/L mmol/L (22-29) Anion Gap 15.6 (5-19) BUN 7 mg/dL mg/dL (6-20) Creatinine 0.6 mg/dL mg/dL (0.5-0.9) GFR Calculation 126.2 mL/min mL/m in (90-130) Glucose 67 mg/dL mg/dL (65-115) Calculated Osmolal ity 282 mOsm/kg L mOs m/kg (285-295) Calcium 8.9 mg/dL mg/dL (8.5-10.5) Total Bilirubin 0.4 mg/dL mg/dL (0.15-1.2) AST 10 U/L U/L (0-32) ALT 7 U/L U/L (0-33) Alkaline Phosphata se 80 IU/L IU/L (35-105) Total Protein 7.7 g/dL g/dL (6.6-8.7) Albumin 4.3 g/dL g/dL (3.5-5.2) Globulin 3.4 g/dL g/dL (1.3-4.6) Ser , [place]nt 89[address].00 mIU/mL m IU/mL Urine Color Yellow (Yellow) Urine Appearance Clear (CLEAR) Urine pH 5 (5-7) Ur Specific Gravit y 1.025 (1.005-1.030) Urine Protein Trace (Negative) Urine Glucose (UA) Norm (Normal) Urine Ketones Negative (Negative) Urine Blood Neg (Negative) Urine Nitrate Negative (Negative) Urine Bilirubin 1+ H (Negative) Urine Urobilinogen 4 mg/dL H mg/dL (Negative) Ur Leukocyte Ksaia ase Negative (Negative) Imaging Data: US OB: Radiologist's impression: [employer] [place] [address] Ultrasound Report Signed Patient: Sherman Corona Unit #: [id number] : 2000 Age/Sex: 20 / F ADM Date: 03/07/21 Loc: ER Room/Bed: Attending Dr: Ordering Provider/Ordering MD: Shona Kirk Date of Service: 03/07/21 Procedure(s): US OB transvaginal [id number] Accession Number(s): [id number] Report Number: [id number] WS: [id number] ULTRASOUND EARLY TECHNIQUE: Transabdominal sonography of the pelvis was performed. Followed by transvaginal sonography to better evaluate the uterus and ovaries. CLINICAL INFORMATION: /bleeding LMP: 01/17/2021 Beta hCG: Unknown. COMPARISON: None. FINDINGS: UTERUS AND GESTATIONAL SAC Intrauterine gestations: Single interuterine gestation with gestational sac and yolk sac. pole measures 4.3 mm with cardiac activity. Cervix is long and closed measuring 3.6 cm. Yet sac is visualized. Estimated gestational age: 6w2d Estimated delivery October 29, 2021 Yolk sac: 0.4 cm. [place] rump length (CRL): 0.4 cm. heart motion: 122 BPM. Subchorionic hemorrhage: None. OVARIES Right ovary: Normal. Left ovary: Normal. FREE FLUID None. US/US OB transvaginal [id number] IMPRESSION: 1. Single live intrauterine with visualized cardiac activity. 2. Estimated gestational age; 6w2d 3. Cervix is long and closed measuring 3.6 CM. 4. Normal ovaries and adnexa. Dictated By: Dino Sauceda MD Signed By: Dino Sauceda MD Signed Date/Time: 03/07/21 1445 DD/ 1436 Discharge Plan Discharge Patient Disposition: Home Clinical Impression: Bleeding in early , Nausea and vomiting during Condition: Stable Prescriptions: New Diclegis 10-10 mg tablet,delayed release (DR/EC) 2 tab PO .qhs Qty: 30 RF: 0 No Action Children's Tylenol 160 mg Tablet,Chewable 320 mg PO PRN RF: 0 ProAir HFA 90 mcg/actuation Hfa Aerosol Inhaler 2 puff INHALATION Q4H PRN (Reason: Shortness Of Breath) RF: 0 sumatriptan succinate 1 tab PO PRN RF: 0 sumatriptan succinate 50 mg tablet See Rx Instructions .ROUTE .COMPLEX Qty: 6 RF: 0 Discharge Orders: Discharge ED (Routine); Ordered 03/07/21 Ordered By: Shona Kirk Activity Restrictions/Additional Instructions: As we discussed I will place a referral to women's health for further routine OB care. You may try the prescription medication in addition to dietary changes a nd avoidance of triggers to help with your nausea and vomiting during . You need to return to the emergency department for severe vaginal bleeding, severe abdominal/pelvic pain, uncontrollable nausea or vomiting despite medications, or any other concerns you may have. Coding Level of Care Code ED Marketing Development Specialist for Ceci Vallecillo
[2021-03-07 15:58] LABS: Add Urine Microscopic? NO; Charge for UA Resulting for Rev
[2021-03-07 16:06] LABS: Glucose Urine UA Norm (Normal); Ketones Urine Negative (Negative); Protein Urine Trace (Negative); Specific Gravity, Urine 1.025 (1.005-1.030); Urine Appearance Clear (CLEAR); Urine Color Yellow (Yellow); pH Urine 5 (5-7)
[2021-03-07 16:07] LABS: Bilirubin Urine 1+ (Negative); Blood Urine Neg (Negative); Leukocyte Esterase Urine Negative (Negative); Nitrate Urine Negative (Negative); Urobilinogen Urine 4 mg/dL (Negative)
--- NOTE | 2021-03-08 12:13 | DCPLANNER ---
contract associate manager had message to schedule a follow up appointment for patient with [facility]. contract associate manager called [facility], spoke with Willy, gave clinic patients information. contract associate manager was told that patients information would be printed and reviewed. Clinic will call patient with appointment information.
--- NOTE | 2021-03-15 15:29 | DCPLANNER ---
Addendum entered by Melany aHrvey 04/06/21 15:48: Patient had a follow up appointment scheduled with [facility] for 03.21.21 - patient did not attend this appointment. Original Note: Patient has a follow up appointment scheduled for Friday, March 21, 2021 at 10:45 with Kayla Patterson. Clinic will call patient with appointment information.
--- NOTE | 2021-04-17 09:51 | DCPLANNER ---
account manager trainee had message to schedule a follow up appointment for patient with [facility]. account manager trainee called [facility], spoke with Willy, gave clinic patients information. account manager trainee was told that patients information would be printed and reviewed. Willy from [facility] called briefcase sewer stating that after reviewing patients chart, that clinic will not be able to see patient due to patient having 3 no shows. The only way that clinic will see patient is if when patient is in the ER that the ER physician would have to call and speak with a physician at the clinic and get permission for patient to be seen. account manager trainee called patient and informed patient of this. Patient stated that she is working on getting insurance. account manager trainee told patient that when she got insurance, to call briefcase sewer and that briefcase sewer would help patient get established with a physician.
== END 2021-03-07 16:53 | disposition home or self-care (01) ==
PROVIDERS: Emergency Provider Physician Assistant
DX: O20.9 Hemorrhage in early pregnancy, unspecified (principal); O26.891 Other specified pregnancy related conditions, first trimester; R11.2 Nausea with vomiting, unspecified; Z3A.01 Less than 8 weeks gestation of pregnancy
CPT/HCPCS: 76817; 80053; 81003; 84702; 85025; 99283

== ENCOUNTER 2021-04-15 08:40 | Emergency (ER) | payer MEDICAID, SELFPAY ==
[2021-04-15 08:46] VITALS: BP 103/67; PULSE 69; RESP 18; TEMP 36.2; O2SAT 97; BMI 25.4
--- NOTE | 2021-04-15 08:53 | USR_ITS ---
PROCEDURE INFORMATION: Exam: US , Limited Exam date and time: 04/15/2021 8:53 AM Age: 20 years old Clinical indication: Lmp or gestational age (in weeks): 12 weeks; Antepartum complications; Bleeding; ; Additional info: Spotting TECHNIQUE: Imaging protocol: Real-time ultrasound of the maternal uterus with image documentation. Exam focused on the clinical indication. COMPARISON: US OB transvaginal [id number] 03/07/2021 1:30 PM FINDINGS: Gestation: Single live intrauterine gestation. heart rate: 157 BPM. BIOMETRY: Estimated due date (AUA): 10/28/2021. Gestational age (AUA): 12 weeks 0 days. [place]-Rump length: 5.3 cm. US/US OB >= 14 weeks fetus [id number] IMPRESSION: Single live intrauterine gestation with approximate age of 12 weeks 0 days.
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
[2021-04-15 09:21] LABS: Basophils % 0.3 %; Eosinophils % 0.3 %; Hematocrit 36.9 % (37.0-47.0); Hemoglobin 12.3 g/dL (11.5-15.3); Lymphocytes # 1.7 10^3/uL (0.8-4.8); Lymphocytes % 17.7 %; Mean Corpuscular HGB Conc 33.3 g/dL (30.0-36.0); Mean Corpuscular Hemoglobin 28.9 pg (28.0-34.0); Mean Corpuscular Volume 86.8 fl (81-99); Mean Platelet Volume 11.2 fL (7.4-10.4); Monocytes # 0.5 10^3/uL (0.2-0.9); Monocytes % 5.2 %; Neutrophils # 7.41 10^3/uL (1.8-7.7); Neutrophils % 76.2 %; Nucleated Red Blood Cells % 0 %; Platelet Count 290 10^3/cmm (130-400); Red Blood Count 4.25 10^6/uL (4.1-5.3); Red Cell Distribution Width 13.5 % (12.1-15.1); White Blood Count 9.7 10^3/uL (4.0-10.0)
[2021-04-15 09:47] LABS: Alanine Aminotransferase 12 U/L (0-33); Albumin Level 4.5 g/dL (3.5-5.2); Alkaline Phosphatase 71 IU/L (35-105); Anion Gap 18.7 (5-19); Aspartate Amino Transferase 15 U/L (0-32); Blood Urea Nitrogen 8 mg/dL (6-20); Calcium 8.8 mg/dL (8.5-10.5); Carbon Dioxide 20 mmol/L (22-29); Chloride 105 mmol/L (98-107); Globulin 2.4 g/dL (1.3-4.6); Glomerular Filtration Rate 201.5 mL/min (90-130); Glucose 86 mg/dL (65-115); Osmolality Calculated 288 mOsm/kg (285-295); Potassium 3.7 mmol/L (3.5-5.1); Sodium 140 mmol/L (136-145); Total Bilirubin 0.5 mg/dL (0.15-1.2); Total Protein 6.9 g/dL (6.6-8.7)
[2021-04-15 09:52] VITALS: BP 108/62; PULSE 67; RESP 16; O2SAT 98
--- NOTE | 2021-04-15 09:56 | PC.NURSE ---
ADVISED PATIENT TO UTILIZE AREA RESOURCES- PA GAVE LIST OF RESOURCES TO PATIENT.
[2021-04-15 10:00] VITALS: BP 98/45; PULSE 56; O2SAT 100
[2021-04-15] MEDS: ondansetron 4 MG Tablet PO (10:19)
--- NOTE | 2021-04-15 10:23 | PC.NURSE ---
PATIENT ASKED IF IT WAS SAFE ENOUGH TO REST HERE, ADVISED SHE COULD SLEEP- WARM BLANKETS PROVIDED
[2021-04-15 11:00] VITALS: BP 86/42; PULSE 58; O2SAT 97
[2021-04-15 12:00] VITALS: BP 91/46; PULSE 58; O2SAT 96
[2021-04-15 13:00] VITALS: PULSE 56; O2SAT 97
[2021-04-15 13:38] LABS: Add Urine Microscopic? YES; Bacteria Urine TRACE /hpf; Bilirubin Urine Neg (Negative); Blood Urine Neg (Negative); Glucose Urine UA Norm (Normal); Ketones Urine 3+ (Negative); Leukocyte Esterase Urine Negative (Negative); Mucus Urine 3+ /hpf; Nitrate Urine Negative (Negative); Protein Urine Trace (Negative); Urine Appearance Clear (CLEAR); Urine Color Yellow (Yellow); Urobilinogen Urine Norm (Negative); WBC Urine 0-4 /hpf (0-5); pH Urine 5 (5-7)
[2021-04-15 13:39] LABS: Add Urine Culture? No
== END 2021-04-15 14:00 | disposition home or self-care (01) ==
PROVIDERS: Emergency Provider Physician Assistant
DX: O20.0 Threatened abortion (principal); O26.891 Other specified pregnancy related conditions, first trimester; R11.2 Nausea with vomiting, unspecified; O9A.311 Physical abuse complicating pregnancy, first trimester; Y07.01 Husband, perpetrator of maltreatment and neglect; Z3A.12 12 weeks gestation of pregnancy
CPT/HCPCS: 36415; 76805; 80053; 81001; 85025; 86850; 86900; 99283; Q0162

== ENCOUNTER 2021-05-28 23:42 | Emergency (ER) | payer MEDICAID, SELFPAY ==
[2021-05-29 00:01] VITALS: BP 99/54; PULSE 87; RESP 16; TEMP 36.7; O2SAT 94; BMI 24.7
[2021-05-29 01:25] LABS: Basophils % 0.3 %; Eosinophils # 0.2 10^3/uL (0.0-0.8); Eosinophils % 3.6 %; Hematocrit 37.6 % (37.0-47.0); Hemoglobin 12.5 g/dL (11.5-15.3); Lymphocytes # 1.9 10^3/uL (0.8-4.8); Lymphocytes % 27.6 %; Mean Corpuscular HGB Conc 33.2 g/dL (30.0-36.0); Mean Corpuscular Hemoglobin 29.5 pg (28.0-34.0); Mean Corpuscular Volume 88.7 fl (81-99); Mean Platelet Volume 11.5 fL (7.4-10.4); Monocytes # 0.6 10^3/uL (0.2-0.9); Monocytes % 9.5 %; Neutrophils # 3.95 10^3/uL (1.8-7.7); Neutrophils % 58.9 %; Nucleated Red Blood Cells % 0 %; Platelet Count 201 10^3/cmm (130-400); Red Blood Count 4.24 10^6/uL (4.1-5.3); Red Cell Distribution Width 14.3 % (12.1-15.1); White Blood Count 6.7 10^3/uL (4.0-10.0)
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
[2021-05-29 01:52] LABS: Alanine Aminotransferase 7 U/L (0-33); Albumin Level 4.7 g/dL (3.5-5.2); Alkaline Phosphatase 60 IU/L (35-105); Anion Gap 15.4 (5-19); Aspartate Amino Transferase 13 U/L (0-32); Blood Urea Nitrogen 5 mg/dL (6-20); Calcium 9.6 mg/dL (8.5-10.5); Carbon Dioxide 23 mmol/L (22-29); Chloride 102 mmol/L (98-107); Creatinine Clr Calc Pharmacy 177.9678; Globulin 2.7 g/dL (1.3-4.6); Glomerular Filtration Rate 155.7 mL/min (90-130); Glucose 80 mg/dL (65-115); Osmolality Calculated 280 mOsm/kg (285-295); Potassium 3.4 mmol/L (3.5-5.1); Sodium 137 mmol/L (136-145); Total Bilirubin 0.2 mg/dL (0.15-1.2); Total Protein 7.4 g/dL (6.6-8.7)
== END 2021-05-29 03:00 | disposition home or self-care (01) ==
PROVIDERS: Emergency Provider Emergency Medicine
DX: O9A.212 Injury, poisoning and certain other consequences of external causes complicating pregnancy, second trimester (principal); S39.91XA Unspecified injury of abdomen, initial encounter; Z3A.18 18 weeks gestation of pregnancy; Y04.2XXA Assault by strike against or bumped into by another person, initial encounter; Y93.F9 Activity, other caregiving; Y99.0 Civilian activity done for income or pay
CPT/HCPCS: 36415; 80053; 85025; 99281

== ENCOUNTER 2021-05-31 07:20 | Emergency (ER) | payer MEDICAID, SELFPAY ==
[2021-05-31 07:20] VITALS: BP 110/58; PULSE 49; RESP 14; O2SAT 100
--- NOTE | 2021-05-31 07:34 | US_ITS ---
WS: [id number] Limited obstetrical ultrasound. HISTORY: Patient presents with vomiting and abdominal pain. COMPARISON: 04/15/2021. This is a very limited evaluation of the early obstetrical ultrasound due to patient's lack of tiffanie ation. Patient with altered mental status. heart rate persisted around 124 bpm over a time frame of several hours. This is a low normal he art rate. On the early imaging obtained the Brandon Roman which was present has resolved. The cervix is very difficult to visualize due to positioning of the patient. Unable to perform transvaginal imag ing at this time. The placenta is posterior and thin measuring only 2 to 3 cm at maximum diameter. No definite previa. No abruption or hemorrhage identified. US/US OB limited [id number] IMPRESSION: 1. Low normal heart rate. 2. Posterior placenta is thin and small caliber throughout measuring 2 to 3 cm in diameter. Possibility of placental insufficiency should be considered going forward. 3. Amniotic fluid is normal. 4. Limited visualization of the cervix. When patient is able to consent reeval uation of the cervix and for insufficiency should be attempted.
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
[2021-05-31] MEDS: ondansetron 2 mg/ML SDV 2 mL 4 MG IVP (07:46)
[2021-05-31] MEDS: naloxone 0.4 mg/ml SDV IVP (07:48)
[2021-05-31 09:17] LABS: Basophils % 0.3 %; Eosinophils # 0.1 10^3/uL (0.0-0.8); Eosinophils % 0.4 %; Hematocrit 36.5 % (37.0-47.0); Hemoglobin 11.9 g/dL (11.5-15.3); Lymphocytes # 0.8 10^3/uL (0.8-4.8); Lymphocytes % 6.9 %; Mean Corpuscular HGB Conc 32.6 g/dL (30.0-36.0); Mean Corpuscular Hemoglobin 29.4 pg (28.0-34.0); Mean Corpuscular Volume 90.1 fl (81-99); Mean Platelet Volume 11.7 fL (7.4-10.4); Monocytes # 0.4 10^3/uL (0.2-0.9); Monocytes % 3.1 %; Neutrophils # 10.01 10^3/uL (1.8-7.7); Neutrophils % 88.9 %; Nucleated Red Blood Cells % 0 %; Platelet Count 182 10^3/cmm (130-400); Red Blood Count 4.05 10^6/uL (4.1-5.3); Red Cell Distribution Width 14.1 % (12.1-15.1); White Blood Count 11.3 10^3/uL (4.0-10.0)
[2021-05-31 09:36] LABS: Alanine Aminotransferase 6 U/L (0-33); Albumin Level 3.5 g/dL (3.5-5.2); Alkaline Phosphatase 50 IU/L (35-105); Aspartate Amino Transferase 10 U/L (0-32); Blood Urea Nitrogen 6 mg/dL (6-20); Calcium 8.7 mg/dL (8.5-10.5); Carbon Dioxide 19 mmol/L (22-29); Chloride 106 mmol/L (98-107); Glomerular Filtration Rate 201.5 mL/min (90-130); Glucose 104 mg/dL (65-115); Lipase 15 U/L (13-60); Osmolality Calculated 280 mOsm/kg (285-295); Sodium 136 mmol/L (136-145); Total Bilirubin 0.2 mg/dL (0.15-1.2); Total Protein 6.5 g/dL (6.6-8.7)
--- NOTE | 2021-05-31 09:40 | PC.NURSE ---
Was able to arouse pt and able to determine per pt she called EMS because she had diarrhea this morning. Pt states she has had N/V since the start of her . Pt stated she does have abdominal pain and indicated both lower quadrants for where pain is. Pt fell asleep before I was able to determine rate and quality.
[2021-05-31 09:47] VITALS: BP 99/65; PULSE 51; RESP 12; O2SAT 100
[2021-05-31 10:46] LABS: Add Urine Microscopic? YES; Amphetamines Screen Urine Negative (Negative); Barbiturates Screen Urine Negative (Negative); Benzodiazepines Screen Urine Negative (Negative); Bilirubin Urine Neg (Negative); Blood Urine Neg (Negative); Cocaine Screen Urine Negative (Negative); Glucose Urine UA Norm (Normal); Ketones Urine Negative (Negative); Leukocyte Esterase Urine Trace (Negative); Nitrate Urine Negative (Negative); Opiate Screen Urine Positive (Negative); PCP Screen Urine Negative (Negative); Protein Urine Neg (Negative); Sulfosalicylic Acid Urine Negative (Negative); THC Screen Urine Positive (Negative); Urine Appearance SL Hazy (CLEAR); Urine Color Yellow (Yellow); Urobilinogen Urine Norm (Negative); pH Urine 8 (5-7)
[2021-05-31 10:47] LABS: RBC Urine 0-4 /hpf (0-2); WBC Urine 0-4 /hpf (0-5)
[2021-05-31 10:48] LABS: Add Urine Culture? No; Bacteria Urine 1+ /hpf; Mucus Urine 2+ /hpf
--- NOTE | 2021-05-31 11:14 | US_ITS ---
WS: [id number] obstetrical ultrasound. HISTORY: Evaluate cervical length. Cervical length is much better seen on transvaginal imaging. Cervix is normal at 4.1 cm. No insuffici ency. There is also movement noted and heart rate at 136 bpm which has improved. US/US OB lmt with transvaginal IMPRESSION: Normal cervical length. No cervical insufficiency.
[2021-05-31] MEDS: sodium chloride 0.9% 1,000 ML 999 ML IV (12:20)
[2021-05-31 14:59] VITALS: BP 103/50; PULSE 53; RESP 13; O2SAT 97
== END 2021-05-31 15:01 | disposition home or self-care (01) ==
PROVIDERS: Emergency Provider Emergency Medicine
DX: O26.899 Other specified pregnancy related conditions, unspecified trimester (principal); R11.2 Nausea with vomiting, unspecified; R10.9 Unspecified abdominal pain; O99.320 Drug use complicating pregnancy, unspecified trimester; F12.10 Cannabis abuse, uncomplicated; Z3A.00 Weeks of gestation of pregnancy not specified
CPT/HCPCS: 36415; 76815; 76817; 80053; 80306; 81001; 83690; 84702; 85025; 96361; 96374; 96375; 99283; J2310; J2405; J7030

== ENCOUNTER 2021-07-20 16:38 | Outpatient (CLI) | payer MEDICAID, SELFPAY ==
[2021-07-20 17:10] VITALS: BP 97/59; PULSE 68
[2021-07-20 17:26] VITALS: BP 94/51; PULSE 70; RESP 16
[2021-07-20 17:40] VITALS: BP 96/51; PULSE 71
[2021-07-20] MEDS: acetaminophen 500 mg Tablet 1000 MG PO (17:44)
[2021-07-20 18:23] LABS: Bilirubin Urine Neg (Negative); Blood Urine Neg (Negative); Glucose Urine UA Norm (Normal); Ketones Urine Negative (Negative); Leukocyte Esterase Urine Negative (Negative); Nitrate Urine Negative (Negative); Protein Urine Neg (Negative); Specific Gravity, Urine 1.005 (1.005-1.030); Urine Appearance Hazy (CLEAR); Urine Color Yellow (Yellow); Urobilinogen Urine Norm (Negative); pH Urine 7 (5-7)
[2021-07-20 18:39] LABS: Bacteria Urine 1+ /hpf; Hyaline Casts Urine 0-4 /lpf; Mucus Urine 1+ /hpf; Squamous Epithelial Cell Urine 0-4 /hpf (0-5); WBC Urine 0-4 /hpf (0-5)
[2021-07-20 18:40] LABS: Add Urine Culture? No
== END 2021-07-20 19:10 | disposition home or self-care (01) ==
LOC: OPOB 16:46 → OBGYN 16:46
PROVIDERS: Family Medicine; Visit Provider Pediatrics
DX: O26.899 Other specified pregnancy related conditions, unspecified trimester (principal); Z3A.00 Weeks of gestation of pregnancy not specified; R10.9 Unspecified abdominal pain
CPT/HCPCS: 59025; 81001; 99211

== ENCOUNTER 2022-05-29 16:37 | Emergency (ER) | payer MEDICAID, SELFPAY ==
[2022-05-29 16:40] VITALS: BP 99/66; PULSE 80; RESP 13; TEMP 36.6; O2SAT 98
[2022-05-29 17:44] LABS: Add Urine Microscopic? YES; Bilirubin Urine 1+ (Negative); Blood Urine Neg (Negative); Glucose Urine UA Norm (Normal); Ketones Urine Negative (Negative); Leukocyte Esterase Urine Negative (Negative); Nitrate Urine Negative (Negative); Protein Urine Neg (Negative); Urine Appearance Hazy (CLEAR); Urine Color Dark Yellow (Yellow); Urobilinogen Urine 4 mg/dL (Negative); pH Urine 6 (5-7)
[2022-05-29 17:45] LABS: Add Urine Culture? No; Squamous Epithelial Cell Urine 15-25 /hpf (0-5)
[2022-05-29 18:04] LABS: Basophils % 0.1 %; Eosinophils # 0.1 10^3/uL (0.0-0.8); Hematocrit 44.5 % (37.0-47.0); Lymphocytes # 1.2 10^3/uL (0.8-4.8); Lymphocytes % 14.3 %; Mean Corpuscular HGB Conc 31.5 g/dL (30.0-36.0); Mean Corpuscular Hemoglobin 28.1 pg (28.0-34.0); Mean Corpuscular Volume 89.2 fl (81-99); Mean Platelet Volume 10.7 fL (7.4-10.4); Monocytes # 0.4 10^3/uL (0.2-0.9); Monocytes % 4.8 %; Neutrophils # 6.45 10^3/uL (1.8-7.7); Neutrophils % 79.6 %; Nucleated Red Blood Cells % 0 %; Platelet Count 226 10^3/cmm (130-400); Red Blood Count 4.99 10^6/uL (4.1-5.3); Red Cell Distribution Width 13.5 % (12.1-15.1); White Blood Count 8.1 10^3/uL (4.0-10.0)
[2022-05-29 18:17] LABS: HCG, Serum Qual Negative (Negative)
[2022-05-29 18:22] LABS: Alanine Aminotransferase 7 U/L (0-33); Albumin Level 4.7 g/dL (3.5-5.2); Alkaline Phosphatase 75 U/L (35-105); Anion Gap 13.6 (5-19); Aspartate Amino Transferase 14 U/L (0-32); Blood Urea Nitrogen 10 mg/dL (6-20); Calcium 8.5 mg/dL (8.5-10.5); Carbon Dioxide 25 mmol/L (22-29); Chloride 105 mmol/L (98-107); Globulin 2.7 g/dL (1.3-4.6); Glucose 69 mg/dL (65-115); Osmolality Calculated 287 mOsm/kg (285-295); Potassium 3.6 mmol/L (3.5-5.1); Sodium 140 mmol/L (136-145); Total Bilirubin 0.3 mg/dL (0.15-1.2); Total Protein 7.4 g/dL (6.6-8.7)
--- NOTE | 2022-05-29 18:49 | ED_ITS ---
HPI - Abdominal Pain General: Chief Complaint: Abdominal Pain Stated Complaint: possible , vaginal bleeding, cramping Time Seen by Provider: 05/29/22 18:41 Source: patient Mode of arrival: ambulatory Limitations: no limitations History of Present Illness: 21-year-old female who states she has had some abdominal cramping over the last 3 weeks she states she has very normal menstruation typically starts menstruation on the first of every month states that this month was delayed for 5 days only had some spotting for a day then nothing and then started spotting again with this cramping states she took a home test was negative but she is concerned she may be she denies any severe pain states that she does have some cramping lower pain she rates a 1 out of 10 currently no vomiting no diarrhea no dysuria. Associated Symptoms: Denies chills, dysuria and fever(s) Related Data: Date of Last Menstrual Period: 04/10/22 Review of Systems Const: Denies: fever(s), chills, body aches or change in appetite Eyes: Denies: blurry vision or eye discomfort ENMT: Denies: throat pain or dental pain Card: Denies: chest pain Resp: Denies: dyspnea GI: Reports: abdominal pain : Denies: dysuria Musc: Denies: neck pain or back pain Skin/Breast: Denies: rash Neuro: Denies: headache(s) Psych: Denies: depression Vivek/Lymph: Denies: easy bruising All/Imm: Denies: urticaria PFSH ED PFSH: Medical History No pertinent past medical history Surgical History No pertinent past surgical history Family History Denies family history of Colon cancer Ovarian cancer Diabetes Ovarian cyst Heart disease Breast cancer Hypertension Uterine cancer Thyroid disease Female Reproductive History: Date of last menstrual period: 04/10/22 Physical Exam Const: COMMON NORMALS: no acute distress, patient oriented x3 and healthy appearing HENMT: COMMON NORMALS: normocephalic and atraumatic HEAD & SCALP: normocephalic and atraumatic Eye: COMMON NORMALS: Equal, round and reactive pupils present and EOMs intact bilaterally PUPIL: Yes Equal, round and reactive pupils present Neck/C-Spine: COMMON NORMALS: full ROM and supple Chest: COMMONS NORMALS: normal inspection of the chest and normal palpation of entire chest wall Resp: COMMON NORMALS: normal respiratory effort, No retractions, No use of accessory muscles and clear to auscultation bilaterally AUSCULTATION: clear to auscultation bilaterally Cardio: COMMON NORMALS: regular rate, regular rhythm and No murmurs present (Cardio) RATE: regular rate RHYTHM: regular rhythm GI: COMMON NORMALS: Normal to inspection, nondistended, normoactive bowel sounds present, Soft to palpation, non-tender and no masses PALPATION: Yes Soft to palpation Extremity: COMMON NORMALS: normal to inspection and full ROM Neuro: COMMON NORMALS: patient oriented x3, moves all extremities and no focal motor deficits Psych: COMMON NORMALS: mental status grossly normal, Normal thought process present and cooperative THOUGHT PROCESS: Normal thought process present Skin: COMMON NORMALS: no rashes or lesions noted and no wounds GENERAL SKIN EXAM: no rashes or lesions noted Course Vital Signs: Vital signs: Vital Signs Temperature 97.8 F 05/29/22 16:40 Pulse Rate 64 05/29/22 19:01 Respiratory Rate 18 05/29/22 19:01 Blood Pressure 97/56 05/29/22 19:01 Pulse Oximetry 99 05/29/22 19:01 Oxygen Delivery Me thod 05/29/22 19:01 MDM - Abdominal Pain Medical Decision Making Patient presents here with abdominal pain along with some cramping in vaginal spotting she is not blood work here is normal likely an irregular menses her exam here is benign she is stable for discharge she is to follow-up with PCP and return if worsening. Lab Data 05/29/22 17:56 05/29/22 17:56 Labs/Radiology: Laboratory Results WBC 8.1 10^3/uL (4.0-10.0) 05/29/22 17:56 RBC 4.99 10^6/uL (4.1-5.3) 05/29/22 17:56 Hgb 14.0 g/dL (11.5-15.3) 05/29/22 17:56 Hct 44.5 % (37.0-47.0) 05/29/22 17:56 MCV 89.2 fl (81-99) 05/29/22 17:56 MCH 28.1 pg (28.0-34.0) 05/29/22 17:56 MCHC 31.5 g/dL (30.0-36.0) 05/29/22 17:56 RDW 13.5 % (12.1-15.1) 05/29/22 17:56 Plt Count 226 10^3/cmm (130-400) 05/29/22 17:56 MPV 10.7 fL (7.4-10.4) H 05/29/22 17:56 Neut % (Auto) 79.6 % 05/29/22 17:56 Lymph % (Auto) 14.3 % 05/29/22 17:56 [place] % (Auto) 4.8 % 05/29/22 17:56 Eos % (Auto) 1.0 % 05/29/22 17:56 Baso % (Auto) 0.1 % 05/29/22 17:56 Neut # (Auto) 6.45 10^3/uL (1.8-7.7) 05/29/22 17:56 Lymph # (Auto) 1.2 10^3/uL (0.8-4.8) 05/29/22 17:56 [place] # (Auto) 0.4 10^3/uL (0.2-0.9) 05/29/22 17:56 Eos # (Auto) 0.1 10^3/uL (0.0-0.8) 05/29/22 17:56 Baso # (Auto) 0.0 10^3/uL (0.0-0.1) 05/29/22 17:56 Nucleated RBC % (auto) 0 % 05/29/22 17:56 Nucleated RBCs # 0.0 /100WBC 05/29/22 17:56 Sodium 140 mmol/L (136-145) 05/29/22 17:56 Potassium 3.6 mmol/L (3.5-5.1) 05/29/22 17:56 Chloride 105 mmol/L (98-107) 05/29/22 17:56 Carbon Dioxide 25 mmol/L (22-29) 05/29/22 17:56 Anion Gap 13.6 (5-19) 05/29/22 17:56 BUN 10 mg/dL (6-20) 05/29/22 17:56 Creatinine 0.6 mg/dL (0.5-0.9) 05/29/22 17:56 GFR Calculation 125.0 mL/min (90-130) 05/29/22 17:56 Glucose 69 mg/dL (65-115) 05/29/22 17:56 Calculated Osmolality 287 mOsm/kg (285-295) 05/29/22 17:56 Calcium 8.5 mg/dL (8.5-10.5) 05/29/22 17:56 Total Bilirubin 0.3 mg/dL (0.15-1.2) 05/29/22 17:56 AST 14 U/L (0-32) 05/29/22 17:56 ALT 7 U/L (0-33) 05/29/22 17:56 Alkaline Phosphatase 75 U/L (35-105) 05/29/22 17:56 Total Protein 7.4 g/dL (6.6-8.7) 05/29/22 17:56 Albumin 4.7 g/dL (3.5-5.2) 05/29/22 17:56 Globulin 2.7 g/dL (1.3-4.6) 05/29/22 17:56 HCG, Qual Negative (Negative) 05/29/22 17:56 Urine Color Dark yellow (Yellow) 05/29/22 16:48 Urine Appearance Hazy (CLEAR) A 05/29/22 16:48 Urine pH 6 (5-7) 05/29/22 16:48 Ur Specific [place] 1.020 (1.005-1.030) 05/29/22 16:48 Urine Protein Neg (Negative) 05/29/22 16:48 Urine Glucose (UA) Norm (Normal) 05/29/22 16:48 Urine Ketones Negative (Negative) 05/29/22 16:48 Urine Blood Neg (Negative) 05/29/22 16:48 Urine Nitrate Negative (Negative) 05/29/22 16:48 Urine Bilirubin 1+ (Negative) H 05/29/22 16:48 Urine Urobilinogen 4 mg/dL (Negative) H 05/29/22 16:48 Ur Leukocyte Esterase Negative (Negative) 05/29/22 16:48 Urine RBC None /hpf (0-2) 05/29/22 16:48 Urine WBC None /hpf (0-5) 05/29/22 16:48 Ur Squamous Epith Cells 15-25 /hpf (0-5) H 05/29/22 16:48 Amorphous Sediment Not Reportable 05/29/22 16:48 Urine Bacteria None /hpf (NONE) 05/29/22 16:48 Discharge Plan Discharge Patient Disposition: Home Clinical Impression: Abdominal pain Condition: Stable Prescriptions: New Naprosyn 500 mg tablet 500 mg PO BID PRN (Reason: pain) Qty: 20 0RF No Action ondansetron HCl 4 mg tablet 4 mg PO Q8H Discharge Orders: Discharge ED (Routine); Ordered 05/29/22 Ordered By: Gage Perdomo Discharge Diet: Advance as tolerated Discharge Activity: Resume usual activity Patient Instructions: Abdominal Pain (ED) Coding Level of Care Code ED Director Of Capital Giving for Ceci Vallecillo
[2022-05-29 19:01] VITALS: BP 97/56; PULSE 64; RESP 18; O2SAT 99
[2022-05-29 19:25] VITALS: BP 100/75; PULSE 65; RESP 18; O2SAT 95
--- NOTE | 2022-05-31 14:40 | DCPLANNER ---
mis manager called patient due to no primary care physician - patient declines at this time
== END 2022-05-29 19:25 | disposition home or self-care (01) ==
PROVIDERS: Nurse Practitioner Family; Emergency Provider Emergency Medicine
DX: R10.9 Unspecified abdominal pain (principal)
CPT/HCPCS: 36415; 80053; 81001; 84703; 85025; 99283

== ENCOUNTER 2022-09-16 13:34 | Emergency (ER) | payer MEDICAID, SELFPAY ==
[2022-09-16 13:35] VITALS: BP 108/74; PULSE 98; RESP 16; TEMP 36.6; O2SAT 98; BMI 25.8
[2022-09-16 14:45] LABS: Basophils % 0.3 %; Eosinophils % 0.3 %; Hematocrit 43.9 % (37.0-47.0); Hemoglobin 14.2 g/dL (11.5-15.3); Lymphocytes # 1.3 10^3/uL (0.8-4.8); Lymphocytes % 19.7 %; Mean Corpuscular HGB Conc 32.3 g/dL (30.0-36.0); Mean Corpuscular Hemoglobin 28.9 pg (28.0-34.0); Mean Corpuscular Volume 89.4 fl (81-99); Mean Platelet Volume 11.2 fL (7.4-10.4); Monocytes # 0.7 10^3/uL (0.2-0.9); Monocytes % 10.1 %; Neutrophils % 69.5 %; Nucleated Red Blood Cells % 0 %; Platelet Count 243 10^3/cmm (130-400); Red Blood Count 4.91 10^6/uL (4.1-5.3); Red Cell Distribution Width 13.5 % (12.1-15.1); White Blood Count 6.8 10^3/uL (4.0-10.0)
[2022-09-16 15:00] LABS: HCG, Serum Qual Negative (Negative)
[2022-09-16 15:11] LABS: Alanine Aminotransferase 7 U/L (0-33); Albumin Level 4.3 g/dL (3.5-5.2); Alkaline Phosphatase 74 U/L (35-105); Anion Gap 16.6 (5-19); Aspartate Amino Transferase 12 U/L (0-32); Blood Urea Nitrogen 9 mg/dL (6-20); Carbon Dioxide 23 mmol/L (22-29); Chloride 103 mmol/L (98-107); Creatinine Clr Calc Pharmacy 127.4894; Globulin 3.4 g/dL (1.3-4.6); Glomerular Filtration Rate 103.7 mL/min (90-130); Glucose 80 mg/dL (65-115); Lipase 19 U/L (13-60); Osmolality Calculated 286 mOsm/kg (285-295); Potassium 3.6 mmol/L (3.5-5.1); Sodium 139 mmol/L (136-145); Total Bilirubin 0.2 mg/dL (0.15-1.2); Total Protein 7.7 g/dL (6.6-8.7)
--- NOTE | 2022-09-16 15:22 | CTR_ITS ---
PROCEDURE INFORMATION: Exam: CT Abdomen And Pelvis With Contrast Exam date and time: 09/16/2022 3:30 PM Age: 22 years old Clinical indication: Abdominal pain; Localized; Left lower quadrant (llq); Additional info: Abdominal pain, n/v, intermittent fevers TECHNIQUE: Imaging protocol: Computed tomography of the abdomen and pelvis with contrast. Radiation optimization: All CT scans at this facility use at least one of these dose optimization techniques: automated exposure control; mA and/or kV adjustment per patient size (includes targeted exams where dose is matched to clinical indication); or iterative reconstruction. Contrast material: OMNI 350; Contrast volume: 100 ml; Contrast route: INTRAVENOUS (IV); REPORTING DATA: Count of CT and Cardiac NM exams in prior 12 months: This patient has received 0 known CTs and 0 known cardiac nuclear medicine studies in the 12 months prior to the current study. COMPARISON: US OB lmt with transvaginal 05/31/2021 12:18 PM RADIATION DOSE METRICS: Total DLP (mGy-cm): 418.89 FINDINGS: Lungs: Lung bases are clear. Liver: Liver is unremarkable. No mass or enlargement detected. Gallbladder and bile ducts: Normal. No calcified stones. No ductal dilation. Pancreas: Unremarkable. Main pancreatic duct is not significantly dilated. Spleen: Normal. No splenomegaly. Adrenal glands: Normal. No mass. Kidneys and ureters: Kidneys are unremarkable. No calculi or hydronephrosis detected. Stomach and bowel: Unremarkable. No obstruction. No mucosal thickening. Appendix: No evidence of acute appendicitis. Intraperitoneal space: Unremarkable. No free air. No significant fluid collection. Vasculature: Unremarkable. No abdominal aortic aneurysm. Lymph nodes: Unremarkable. No enlarged lymph nodes. Urinary bladder: Urinary bladder is collapsed limiting assessment. Reproductive: Unremarkable as visualized. Bones/joints: Unremarkable. No acute fracture. Soft tissues: Unremarkable. CT/CT abdomen pelvis w con* [id number] IMPRESSION: No acute findings within the abdomen or pelvis.
--- NOTE | 2022-09-16 15:23 | ED_ITS ---
HPI - Abdominal Pain General: Chief Complaint: Abdominal Pain Stated Complaint: n/v, abd pain Time Seen by Provider: 09/16/22 14:58 Source: patient Mode of arrival: ambulatory Limitations: no limitations History of Present Illness: Patient is a 22-year-old female presents to ED today with multiple multiple medical complaints. She states over the past month she has had constant and progressively worsening left-sided abdominal pains. She states she has had associated chronic nausea and vomiting anytime she tries to eat. She states she has been popping Zofran over the past month to try to hold down small amounts of food. She is reporting normal bowel movements. She does not feel like her abdominal pain worsens with eating. States intensity of the pain waxes and wanes throughout the day. She has not found any specific exacerbating components to her discomfort. Patient reports over the past month she has also ran intermittent fevers some as high as 103 (about one episode weekly that occurs for about 12 hours and then subsides on its own). She denies urinary symptoms. She states she missed her period in July and began bleeding sometime in August and describes it as 2 days of heavy clotting. She thought she was potentially /miscarrying and took a test and this was negative. She reports she has not had her menstrual cycle yet for September states she has already missed her normal scheduled date to start. Patient also reports intermittent blacking out episodes at home over the past month. She states she will be walking or cooking and will start to get tunnel vision. She states there has been times where she has blacked out and fallen. She denies chest pain, shortness of breath, difficulty breathing, palpitations. She states in between these episodes she feels asymptomatic without episodes of dizziness. She complains of head and nasal congestion over the past several days and states when she blows her nose she will notice bloody mucus. MD elicited complaint: abdominal pain Pertinent past history: none Onset (ago): week(s) Pain Consistency: constant Location: Other (L abdomen) Pain scale (0-10): 4 Quality: aching Radiation: none Migration to: no migration Exacerbating factors: nothing Relieving factors: nothing Associated Symptoms: Reports fever(s), nausea and vomiting; Denies change in bowel habits, chills, diarrhea, dysuria and hematemesis Related Data: Patient : No Review of Systems Const: Reports: fever(s); Denies: chills, body aches, fatigue or malaise Eyes: Reports: change in vision (before blacking out episodes ); Denies: blurry vision, photophobia, floaters or seeing flashes ENMT: Reports: nasal discharge and nasal congestion; Denies: throat pain, odynophagia, ear or mastoid pain or sinus pain Card: Denies: chest pain, palpitations, irregular heart rhythm, dyspnea on exertion or orthopnea Resp: Denies: dyspnea GI: Reports: abdominal pain, nausea and vomiting; Denies: hematemesis, diarrhea or change in bowel habits : Denies: flank pain, difficulty voiding, dysuria, urinary urgency or urinary hesitancy Musc: Denies: neck pain, back pain, extremity pain or joint pain Skin/Breast: Denies: rash Neuro: Denies: numbness in extremities, weakness in extremities, sensory changes, lack of coordination, difficulty walking, frequent falls, vertigo, confusion, behavioral changes, Slurred speech present, difficulty communicating thoughts or seizure-like activity PFS ED PFSH: Medical History No pertinent past medical history Surgical History No pertinent past surgical history Family History Denies family history of Colon cancer Ovarian cancer Diabetes Ovarian cyst Heart disease Breast cancer Hypertension Uterine cancer Thyroid disease Physical Exam Const: COMMON NORMALS: no acute distress, average body habitus, patient oriented x3, no limitations, healthy appearing, alert and well nourished GENERAL APPEARANCE: cooperative ORIENTATION/CONSCIOUSNESS: Yes awake, Yes oriented to person, Yes oriented to place and Yes oriented to time HENMT: COMMON NORMALS: normocephalic, atraumatic and TM's normal bilaterally HEAD & SCALP: normal to inspection, normocephalic and atraumatic FACE & SINUS: sinus tenderness; no erythema, no edema and no fluctuance TYMPANIC MEMBRANE: TM's normal bilaterally Eye: GENERAL EYE: appearance normal, both eyes and all related structures and normal light reflex DIRECT OPHTHALMOSCOPY: Yes normal light reflex Neck/C-Spine: COMMON NORMALS: full ROM, no lymphadenopathy, supple and no meningeal signs Chest: COMMONS NORMALS: normal inspection of the chest Resp: COMMON NORMALS: normal respiratory effort and clear to auscultation bilaterally AUSCULTATION: clear to auscultation bilaterally Cardio: COMMON NORMALS: regular rate and regular rhythm RATE: regular rate RHYTHM: regular rhythm GI: COMMON NORMALS: Normal to inspection, nondistended, normoactive bowel sounds present, Soft to palpation, No hepatosplenomegaly present and no masses INSPECTION: Yes normal to inspection AUSCULTATION: Yes normoactive bowel sounds PALPATION: Yes Soft to palpation, Yes Tenderness to palpation present (GI) (L abdomen), No Guarding due to palpation present (GI), No Rigid due to palpation and Yes No hepatosplenomegaly present : COMMON NORMALS: Yes no CVA tenderness BLADDER/KIDNEY EXAM: Yes no CVA tenderness Back/Pelvis: COMMON NORMALS: no CVA tenderness, thoracic and lumbar spine normal to inspection, no thoracic nor lumbar tenderness and thoraco-lumbar ROM normal Extremity: COMMON NORMALS: normal to inspection GENERAL: Yes normal exam except as noted Neuro: ÓSCAR COMA SCALE: document GCS findings Óscar coma scale eye opening: Spontaneous Óscar coma scale verbal response: Orientated Óscar coma scale motor response: [place] commands [place] coma scale total score: 15 COMMON NORMALS: patient oriented x3, CN's II-XII intact bilaterally, moves all extremities, no focal motor deficits, no sensory deficits noted and gait normal SENSORIUM/ORIENTATION: Yes alert, Yes oriented to person, Yes oriented to place and Yes oriented to time MENINGEAL SIGNS: Yes no meningeal signs SPEECH: speech normal GAIT: Yes Normal gait present Skin: COMMON NORMALS: no rashes or lesions noted GENERAL SKIN EXAM: no rashes or lesions noted Course Vital Signs: Vital signs: Vital Signs Temperature 97.9 F 09/16/22 13:35 Pulse Rate 82 09/16/22 16:27 Respiratory Rate 16 09/16/22 16:27 Blood Pressure 103/79 09/16/22 16:27 Pulse Oximetry 100 09/16/22 16:27 Oxygen Delivery Me thod Room Air 09/16/22 15:40 MDM - Abdominal Pain Medical Decision Making Patient appears in no acute distress. Her vital signs are perfect. Her physical exam is completely benign. Patient has multiple multiple medical complaints on today's visit. She ultimately will require primary care follow-up for further evaluation and treatment of some of these issues. Her work-up today is completely benign. I do not have any suspicion for anything emergent causing patient's symptoms. Case management referral was placed for primary care provider. Return ED precautions given. Lab Data 09/16/22 14:35 09/16/22 14:35 Labs/Radiology: Radiology Impressions Abdomen/Pelvis CT 09/16/22 15:22 IMPRESSION: No acute findings within the abdomen or pelvis. Laboratory Results WBC 6.8 10^3/uL (4.0-10.0) 09/16/22 14:35 RBC 4.91 10^6/uL (4.1-5.3) 09/16/22 14:35 Hgb 14.2 g/dL (11.5-15.3) 09/16/22 14:35 Hct 43.9 % (37.0-47.0) 09/16/22 14:35 MCV 89.4 fl (81-99) 09/16/22 14:35 MCH 28.9 pg (28.0-34.0) 09/16/22 14:35 MCHC 32.3 g/dL (30.0-36.0) 09/16/22 14:35 RDW 13.5 % (12.1-15.1) 09/16/22 14:35 Plt Count 243 10^3/cmm (130-400) 09/16/22 14:35 MPV 11.2 fL (7.4-10.4) H 09/16/22 14:35 Neut % (Auto) 69.5 % 09/16/22 14:35 Lymph % (Auto) 19.7 % 09/16/22 14:35 [place] % (Auto) 10.1 % 09/16/22 14:35 Eos % (Auto) 0.3 % 09/16/22 14:35 Baso % (Auto) 0.3 % 09/16/22 14:35 Neut # (Auto) 4.70 10^3/uL (1.8-7.7) 09/16/22 14:35 Lymph # (Auto) 1.3 10^3/uL (0.8-4.8) 09/16/22 14:35 [place] # (Auto) 0.7 10^3/uL (0.2-0.9) 09/16/22 14:35 Eos # (Auto) 0.0 10^3/uL (0.0-0.8) 09/16/22 14:35 Baso # (Auto) 0.0 10^3/uL (0.0-0.1) 09/16/22 14:35 Nucleated RBC % (auto) 0 % 09/16/22 14:35 Nucleated RBCs # 0.0 /100WBC 09/16/22 14:35 Sodium 139 mmol/L (136-145) 09/16/22 14:35 Potassium 3.6 mmol/L (3.5-5.1) 09/16/22 14:35 Chloride 103 mmol/L (98-107) 09/16/22 14:35 Carbon Dioxide 23 mmol/L (22-29) 09/16/22 14:35 Anion Gap 16.6 (5-19) 09/16/22 14:35 BUN 9 mg/dL (6-20) 09/16/22 14:35 Creatinine 0.7 mg/dL (0.5-0.9) 09/16/22 14:35 GFR Calculation 103.7 mL/min (90-130) 09/16/22 14:35 Glucose 80 mg/dL (65-115) 09/16/22 14:35 Calculated Osmolality 286 mOsm/kg (285-295) 09/16/22 14:35 Calcium 9.0 mg/dL (8.5-10.5) 09/16/22 14:35 Total Bilirubin 0.2 mg/dL (0.15-1.2) 09/16/22 14:35 AST 12 U/L (0-32) 09/16/22 14:35 ALT 7 U/L (0-33) 09/16/22 14:35 Alkaline Phosphatase 74 U/L (35-105) 09/16/22 14:35 Total Protein 7.7 g/dL (6.6-8.7) 09/16/22 14:35 Albumin 4.3 g/dL (3.5-5.2) 09/16/22 14:35 Globulin 3.4 g/dL (1.3-4.6) 09/16/22 14:35 Lipase 19 U/L (13-60) 09/16/22 14:35 HCG, Qual Negative (Negative) 09/16/22 14:35 Urine Color Yellow (Yellow) 09/16/22 15:21 Urine Appearance Clear (CLEAR) 09/16/22 15:21 Urine pH 6 (5-7) 09/16/22 15:21 Ur Specific [place] 1.015 (1.005-1.030) 09/16/22 15:21 Urine Protein Trace (Negative) 09/16/22 15:21 Urine Glucose (UA) Norm (Normal) 09/16/22 15:21 Urine Ketones 1+ (Negative) H 09/16/22 15:21 Urine Blood Neg (Negative) 09/16/22 15:21 Urine Nitrate Negative (Negative) 09/16/22 15:21 Urine Bilirubin 1+ (Negative) H 09/16/22 15:21 Urine Urobilinogen Norm mg/dL (Negative) 09/16/22 15:21 Ur Leukocyte Esterase Trace (Negative) H 09/16/22 15:21 Urine RBC None /hpf (0-2) 09/16/22 15:21 Urine WBC 0-4 /hpf (0-5) H 09/16/22 15:21 Ur Squamous Epith Cells 0-4 /hpf (0-5) H 09/16/22 15:21 Amorphous Sediment Not Reportable 09/16/22 15:21 Urine Bacteria Trace /hpf (NONE) 09/16/22 15:21 Urine Mucus 2+ /hpf 09/16/22 15:21 Discharge Plan Discharge Patient Disposition: Home Clinical Impression: Multiple complaints Abdominal pain Qualifiers: Abdominal location: unspecified location Qualified Code(s): R10.9 - Unspecified abdominal pain Nausea and vomiting Qualifiers: Vomiting type: unspecified Qualified Code(s): R11.2 - Nausea with vomiting, unspecified Syncopal episodes Qualifiers: Syncope type: unspecified Qualified Code(s): R55 - Syncope and collapse Condition: Stable Prescriptions: No Action Tylenol Ex Str Rapid Release 500 mg Tablet 1,000 - 2,000 mg PO Q6H PRN (Reason: Pain) ondansetron HCl 4 mg tablet 4 mg PO Q8H PRN (Reason: Nausea And Vomiting) Discharge Orders: Discharge ED (Routine); Ordered 09/16/22 Ordered By: Shona Kirk Patient Instructions: Syncope (DC), Acute Nausea and Vomiting (DC), Abdominal Pain (ED), Near Syncope (ED) Coding Level of Care Code ED [facility] [facility] for Ceci Vallecillo
[2022-09-16 15:25] LABS: Slide Review Slide Review Perform
[2022-09-16 15:40] VITALS: BP 103/79; PULSE 82; O2SAT 100
[2022-09-16] MEDS: iohexol 350 mg/mL 500 mL Btl (per mL) IV (15:46)
[2022-09-16 15:56] LABS: Specific Gravity, Urine 1.015 (1.005-1.030); Urine Appearance Clear (CLEAR); Urine Color Yellow (Yellow); pH Urine 6 (5-7)
[2022-09-16 15:57] LABS: Add Urine Microscopic? YES; Bilirubin Urine 1+ (Negative); Blood Urine Neg (Negative); Glucose Urine UA Norm (Normal); Ketones Urine 1+ (Negative); Leukocyte Esterase Urine Trace (Negative); Nitrate Urine Negative (Negative); Protein Urine Trace (Negative); Urobilinogen Urine Norm (Negative)
--- NOTE | 2022-09-16 15:57 | ECG_ITS ---
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 Measurements Intervals [place] Rate: 75 P: 77 RI: 139 QRS: 96 QRSD: 88 T: 52 QT: 373 QTc: 419 Interpretive Statements SINUS RHYTHM BORDERLINE RIGHT AXIS DEVIATION [QRS AXIS > 90] No previous ECG available for comparison Electronically Signed On 09-16-2022 16:19:37 CDT by Sabas Hernandez M.D. [id number]
[2022-09-16 15:59] LABS: Add Urine Culture? No; Bacteria Urine TRACE /hpf; Mucus Urine 2+ /hpf; Squamous Epithelial Cell Urine 0-4 /hpf (0-5); WBC Urine 0-4 /hpf (0-5)
[2022-09-16 16:27] VITALS: BP 103/79; PULSE 82; RESP 16; O2SAT 100
--- NOTE | 2022-09-17 09:52 | DCPLANNER ---
Addendum entered by Melany Harvey 10/11/22 09:13: Patient had a follow up appointment scheduled at [facility] - patient did not attend appointment. Original Note: unclaimed property manager had message to speak with patient about getting established with a primary care physician. Patient stated that she would like help in getting established with a provider. unclaimed property manager called [facility], gave clinic patients information. A follow up appointment was scheduled for Friday, October 07, 2022 at 9:[address] Ambrosio. Patient is aware of appointment.
== END 2022-09-16 16:28 | disposition home or self-care (01) ==
PROVIDERS: Emergency Provider Physician Assistant
DX: R10.9 Unspecified abdominal pain (principal); R11.2 Nausea with vomiting, unspecified; R55 Syncope and collapse
CPT/HCPCS: 36415; 74177; 80053; 81001; 83690; 84703; 85025; 93005; 99285; Q9967

== ENCOUNTER 2022-12-27 09:10 | Emergency (ER) | payer SELFPAY ==
[2022-12-27 09:15] VITALS: BP 127/45; PULSE 46; RESP 20; TEMP 36.8; O2SAT 100; BMI 24.2
--- NOTE | 2022-12-27 09:24 | W.ED.NAVMDI ---
HPI - Nausea/Vomiting/Diarrhea General: Chief complaint: Nausea/Vomiting/Diarrhea Stated complaint: abd pain Time Seen by Provider: 12/27/22 09:11 Source: patient and EMS Mode of arrival: EMS Limitations: other (Patient participation) History of Present Illness: Patient presents emergency department today brought by EMS for evaluation treatment of complaints of abdominal pains. Obtaining history of this current illness is extremely difficult as patient somewhat refuses to talk-stating she is in too much pain . From what I understand, patient began having symptoms at approximately 11:00 last night and reports multiple episodes of vomiting. No diarrhea. No other similarly ill. Patient reports all over body aches and states her epidural site hurts-epidural was more than a year ago when she had a baby. Patient denies vaginal discharge or dysuria but states she began having her period while she was vomiting today. Patient refuses to indicate a specific area of pain in her abdomen. Nursing note indicates the last time patient had this type of pain she states she was . Review of Systems General: Reports: 10 or more systems reviewed and unremarkable except in HPI and below PFSH ED PFSH: Medical History No pertinent past medical history Surgical History No pertinent past surgical history Family History Denies family history of Colon cancer Ovarian cancer Diabetes Ovarian cyst Heart disease Breast cancer Hypertension Uterine cancer Thyroid disease Physical Exam Const: COMMON NORMALS: patient oriented x3 and alert OTHER: Patient is writhing around in the bed kicking and rolling back and forth. She is yelling out. HENMT: COMMON NORMALS: normocephalic, atraumatic, hearing grossly normal bilaterally and moist oral mucous membranes (Saliva strings visible when patient yells out) HEAD & SCALP: normocephalic and atraumatic Eye: COMMON NORMALS: Equal, round and reactive pupils present, EOMs intact bilaterally and conjunctivae normal CONJUNCTIVA: Yes conjunctivae normal PUPIL: Yes Equal, round and reactive pupils present Neck/C-Spine: COMMON NORMALS: full ROM and no JVD Lymph: LYMPHATIC: no lymphadenopathy noted Resp: COMMON NORMALS: normal respiratory effort, No retractions, No use of accessory muscles and clear to auscultation bilaterally AUSCULTATION: clear to auscultation bilaterally Cardio: COMMON NORMALS: no JVD, regular rate and regular rhythm RATE: regular rate RHYTHM: regular rhythm GI: OTHER: Abdominal exam is extremely difficult as patient refuses to stop moving and curls up into a ball while I attempt to auscultate. From the small amount of examination I was able to get, her abdomen still felt soft. Back/Pelvis: OTHER: Patient demonstrates flexion extension of the back independently While in the bed but, attempting to auscultate the upper back on examination causes her to yell out stating her back was painful. Extremity: COMMON NORMALS: normal to inspection, full ROM and capillary refill normal Neuro: COMMON NORMALS: patient oriented x3 SENSORIUM/ORIENTATION: Yes alert Psych: COMMON NORMALS: negative for cooperative and negative for normal affect APPEARANCE: Yes grossly normal ATTITUDE: Yes uncooperative and Yes agitated ACTIVITY/MOTOR BEHAVIOR: No appropriate eye contact (Will not open her eyes and look at staff) and Yes Avoids eye contact (attititude/behavior) MOOD & AFFECT: Yes irritable Skin: COMMON NORMALS: no rashes or lesions noted and no wounds GENERAL SKIN EXAM: no rashes or lesions noted Course Vital Signs: Vital signs: Vital Signs Temperature 98.2 F 12/27/22 09:15 Pulse Rate 50 L 12/27/22 11:36 Respiratory Rate 16 12/27/22 11:36 Blood Pressure 127/45 12/27/22 10:08 Pulse Oximetry 100 12/27/22 11:36 Oxygen Delivery Me thod Room Air 12/27/22 11:36 MDM - Nausea/Vomiting/Diarrhea Medical Decision Making After attempting to gather as much information as possible regarding the patient's symptoms, we did proceed on with lab work, urinalysis, IV fluids, antinausea medication, and IV Tylenol. Patient states she wants to drink something but I have asked that she remain n.p.o. until we have more information. Also, we will start with Tylenol for pain until I know the patient's status. Recheck of the patient showed she did seem noticeably improved with her treatment here in the emergency department and was actually willing to speak with me regarding her lab results and appeared much more comfortable during that time. Urine test is negative. Patient's lab work is generally unremarkable and shows no signs of any infection, cholecystitis, elevated LFTs, pancreatitis, or anemia. Urinalysis shows no signs of any urinary tract infection or pyelonephritis. Patient did test positive for marijuana. I spoke with the patient regarding this finding she indicates that she chronically uses 2 or 3 times a week. She admits to using recently. Discussed with her that with an otherwise negative work-up and such severe abdominal pain and profuse vomiting I would suspect she had hyperemesis cannabis syndrome. Information regarding this condition provided to her discharge as I explained it could last for several days and could lead to dehydration. She is given antinausea medication and capsaicin cream with instructions to take hot showers or baths to help with her comfort but return precautions for signs of dehydration given. Indicated to her that the only treatment is stopping the use of cannabis. Patient verbalized understanding and agreement to treatment plan. Differential Diagnosis Likely drug-induced nausea and vomiting; Unlikely traveler's diarrhea, food poisoning, gastroenteritis, clostridium difficile infection or dehydration Lab Data 12/27/22 09:26 12/27/22 09: Laboratory Results WBC 7.74 10^3/uL (3.29-11.43) 12/27/22 09: RBC 5.01 10^6/uL (3.85-5.65) 12/27/22 09: Hgb 14.50 g/dL (11.27-16.99) 12/27/22 09: Hct 44.4 % (36-47) 12/27/22 09: MCV 88.6 fl (85-98) 12/27/22 09: MCH 28.9 pg (27-33) 12/27/22 09: MCHC 32.7 g/dL (30-55) 12/27/22 09: RDW 13.3 % (12.1-15.1) 12/27/22 09: Plt Count 258 10^3/cmm (157-399) 12/27/22 09: MPV 11.2 fL (7.4-10.4) H 12/27/22 09: Neut % (Auto) 88.1 % 12/27/22 09: Lymph % (Auto) 10.6 % 12/27/22 09: [place] % (Auto) 0.9 % 12/27/22: Eos % (Auto) 0.0 % 12/27/22 09:26 Baso % (Auto) 0.1 % 12/27/22: Neut # (Auto) 6.82 10^3/uL (1.8-7.7) 12/27/22 09: Lymph # (Auto) 0.8 10^3/uL (0.8-4.8) 12/27/22 09: Emmons # (Auto) 0.1 10^3/uL (0.2-0.9) L 12/27/22 09:26 Eos # (Auto) 0.0 10^3/uL (0.0-0.8) 12/27/22 09: Baso # (Auto) 0.0 10^3/uL (0.0-0.1) 12/27/22 09: Nucleated RBC % (auto) 0 % 12/27/22: Nucleated RBCs # 0.0 /100WBC 12/27/22 09: ESR 6 mm/hr (0-15) 12/27/22 09:26 Sodium 139 mmol/L (136-145) 12/27/22 09:26 Potassium 4.1 mmol/L (3.5-5.1) 12/27/22 09: Chloride 105 mmol/L (98-107) 12/27/22 09: Carbon Dioxide 20 mmol/L (22-29) L 12/27/22 09: Anion Gap 18.1 (5-19) 12/27/22 09: BUN 15 mg/dL (6-20) 12/27/22 09: Creatinine 0.7 mg/dL (0.5-0.9) 12/27/22 09:26 GFR Calculation 103.7 mL/min (90-130) 12/27/22 09:26 Glucose 126 mg/dL (65-115) H 12/27/22 09: Calculated Osmolality 290 mOsm/kg (285-295) 12/27/22 09:26 Calcium 9.8 mg/dL (8.5-10.5) 12/27/22 09:26 Total Bilirubin 0.6 mg/dL (0.15-1.2) 12/27/22 09:26 AST 17 U/L (0-32) 12/27/22 09:26 ALT 9 U/L (0-33) 12/27/22 09:26 Alkaline Phosphatase 62 U/L (35-105) 12/27/22 09:26 C-Reactive Protein 3.0 mg/L (0.0-4.9) 12/27/22 09:26 Total Protein 8.3 g/dL (6.6-8.7) 12/27/22 09: Albumin 5.1 g/dL (3.5-5.2) 12/27/22 09: Globulin 3.2 g/dL (1.3-4.6) 12/27/22 09: Lipase 17 U/L (13-60) 12/27/22 09:26 HCG, Qual Negative (Negative) 12/27/22 11:30 Urine Color Yellow (Yellow) 12/27/22 11:30 Urine Appearance Clear (CLEAR) 12/27/22 11:30 Urine pH 8 (5-7) H 12/27/22 11:30 Ur Specific [place] 1.010 (1.005-1.030) 12/27/22 11:30 Urine Protein Neg (Negative) 12/27/22 11:30 Urine Glucose (UA) Norm (Normal) 12/27/22 11:30 Urine Ketones 2+ (Negative) H 12/27/22 11:30 Urine Blood Neg (Negative) 12/27/22 11:30 Urine Nitrate Negative (Negative) 12/27/22 11:30 Urine Bilirubin Neg (Negative) 12/27/22 11:30 Prot Sulfosalicylic Acd Negative (Negative) 12/27/22 11:30 Urine Urobilinogen Norm mg/dL (Negative) 12/27/22 11:30 Ur Leukocyte Esterase Negative (Negative) 12/27/22 11:30 Urine Opiates Screen Negative ng/mL (Negative) 12/27/22 11:30 Ur Barbiturates Screen Negative ng/mL (Negative) 12/27/22 11:30 Ur Phencyclidine Scrn Negative ng/mL (Negative) 12/27/22 11:30 Ur Amphetamines Screen Negative ng/mL (Negative) 12/27/22 11:30 U Benzodiazepines Scrn Negative ng/mL (Negative) 12/27/22 11:30 Urine Cocaine Screen Negative ng/mL (Negative) 12/27/22 11:30 U Marijuana (THC) Screen Positive ng/mL (Negative) H 12/27/22 11:30 SARS-CoV-2 Ag (Rapid) negative (Negative) 12/27/22 11:35 No radiology studies performed this visit Discharge Plan Discharge Patient Disposition: Home Clinical Impression: Cannabinoid hyperemesis syndrome Condition: Stable Prescriptions: New ondansetron 4 mg tablet,disintegrating 4 mg PO Q8H 5 Days Qty: 15 0RF capsaicin 0.1 % cream 1 applic topical BID Qty: 42.5 0RF Rx Instructions: do not wash area for at least 30 min after application No Action multivitamin Tablet 1 tab PO QAM Vitamin C 500 mg Tablet 500 mg PO QAM Women's Multivitamin 18 mg iron-400 mcg-500 mg Tablet 1 tab PO QAM Discharge Orders: Discharge ED (Routine); Ordered 12/27/22 Ordered By: Karina Dorantes Discharge Diet: Advance as tolerated Discharge Activity: Increase activity as tolerated Activity Restrictions/Additional Instructions: Labs today show no signs of any acute infection, gallbladder disease, appendicitis, urinary tract infection, or kidney infection. Evaluation today is consistent with a condition called hyperemesis cannabis where cannabis users developed her severe reaction to the effects of THC resulting in severe abdominal pains and profuse vomiting. The symptoms can last a few days so we do recommend taking antinausea medication in an effort to stay hydrated. Will be extremely important that you stay hydrated during this time. Unfortunately, very little help with this type of abdominal pain but I have provided you a topical cream which you can apply to your abdomen which has been shown to help with pain and, would recommend a hot shower or hot bath which has also been shown to help with the effects of this condition. What is cannabis hyperemesis syndrome? Cannabis hyperemesis syndrome (CHS) is a condition caused by long-term cannabis use. People who have CHS experience recurring episodes of?nausea, vomiting,?dehydration?and?abdominal pain, with frequent visits to the emergency department. Hyperemesis means severe vomiting. Another name for CHS is cannabinoid hyperemesis syndrome. Cannabinoids are compounds found in the cannabis plant that bind to cannabinoid receptors found in our brains, gastrointestinal tracts and immune cells. The most studied exogenous cannabinoids are tetrahydrocannabinol (THC), cannabidiol (CBD) and cannabigerol (CBG). CHS is more than just a side effect of marijuana. It is a condition that can lead to health complications if left untreated. Who might get cannabis hyperemesis syndrome? People who use cannabis chronically are at risk of developing CHS. It tends to occur in people who use cannabis at least once a week and occurs more often in adults who have been using cannabis since their adolescent years. Typically, there is a delay of several years in the onset of symptoms preceded by chronic marijuana misuse in nearly all cases. How common is cannabinoid hyperemesis syndrome? Only a small portion of people who regularly use cannabis develop CHS. Because CHS is a newly discovered condition, many people may have it and not report it or are misdiagnosed. One study found that up to 6% of people who visited the emergency room for vomiting had CHS. What causes cannabis hyperemesis syndrome? Experts don?t know exactly what causes cannabis hyperemesis syndrome. Some researchers suspect genetics may play a role. Others believe CHS may occur due to overstimulation of your endocannabinoid system (ECS). The ECS is a network of receptors in your body that respond to compounds in cannabis. What are the symptoms of CHS? The primary symptoms of CHS are intense and persistent nausea and vomiting. People with this condition vomit extensively, often without warning, and can vomit up to five times per hour. They may also experience diffused abdominal pain, often report weight loss, and appear dehydrated. People with CHS self-learn to take hot showers, which helps reduce or curb some nausea they experience. Many people with CHS will compulsively shower or bathe ? often for hours every day ? to relieve cannabis hyperemesis syndrome symptoms. There are three phases of cannabis hyperemesis syndrome. Slightly different symptoms occur in each stage: Prodromal phase:?This phase is most common in adults who have used cannabis since they were teenagers. You may have abdominal pain or morning nausea. You may also fear throwing up but never actually vomit. Hyperemetic phase:?Usually lasting 24 to 48 hours, people in this phase have overwhelming, recurrent vomiting and nausea. You may start compulsively bathing, and avoid certain foods or purposefully restrict your food intake. Recovery phase:?During recovery, people stop using cannabis (even in small amounts). When you are in the recovery phase, symptoms lessen over a few days or months. Eventually, they completely disappear. Is there a cannabis hyperemesis syndrome cure? The only known treatment to permanently get rid of CHS is to stop cannabis use completely. You may have symptoms and side effects of CHS for a few weeks after quitting cannabis. Over time, symptoms will disappear. Can I treat CHS symptoms at home? The only cure for CHS is to stop using cannabis. Hot baths may relieve the nausea temporarily, but they don?t cure CHS. Taking too many hot baths can increase dehydration due to sweating. You may use home treatments to relieve CHS symptoms immediately after quitting cannabis. These remedies are not effective termite helper, but they can help you transition to the recovery phase. Your healthcare provider may recommend: [email or web address]?like diphenhydramine (Benadryl?). Antipsychotic medications?like haloperidol (Haldol?) or olanzapine (Zyprexa?). Capsaicin cream?(Zostrix?) to relieve pain. Intravenous (IV)?[email or web address]-daily/?if you become severely dehydrated from vomiting. Pain [email or web address]?like ibuprofen (Advil?, Motrin?) or acetaminophen (Tylenol?). How soon after cannabis hyperemesis syndrome treatment will I feel better? Most people with CHS who stop using cannabis have relief from symptoms within 10 days. But it may take a few months to feel fully recovered. As you recover, you begin to resume your usual eating and bathing habits. Prevention How can I prevent cannabis hyperemesis syndrome? The only proven way to prevent cannabis hyperemesis syndrome is to avoid cannabis. If you need help quitting cannabis, you should speak to your primary care provider or connect with your local addiction treatment services. You can also call the Substance Abuse and Mental Health Services Administration (SAMHSA) National Helpline at 224.071.OLSU (3338). This free, confidential, 30/09, 333-vrt-c-year service provides treatment referrals and information in [place]ian and Polish. Coding Level of Care Code ED Corrosion Control Fitter for Ceci Vallecillo
--- NOTE | 2022-12-27 09:34 | PC.PHAR ---
pt states she takes no rx medications-pt states she only takes vit c one tab qam and 2 different multivitamins qam
[2022-12-27 09:36] LABS: Basophils % 0.1 %; Hematocrit 44.4 % (36-47); Lymphocytes # 0.8 10^3/uL (0.8-4.8); Lymphocytes % 10.6 %; Mean Corpuscular HGB Conc 32.7 g/dL (30-55); Mean Corpuscular Hemoglobin 28.9 pg (27-33); Mean Corpuscular Volume 88.6 fl (85-98); Mean Platelet Volume 11.2 fL (7.4-10.4); Monocytes # 0.1 10^3/uL (0.2-0.9); Monocytes % 0.9 %; Neutrophils # 6.82 10^3/uL (1.8-7.7); Neutrophils % 88.1 %; Nucleated Red Blood Cells % 0 %; Platelet Count 258 10^3/cmm (157-399); Red Blood Count 5.01 10^6/uL (3.85-5.65); Red Cell Distribution Width 13.3 % (12.1-15.1); White Blood Count 7.74 10^3/uL (3.29-11.43)
[2022-12-27 09:41] LABS: Erythrocyte Sedimentation Rate 6 mm/hr (0-15)
[2022-12-27] MEDS: metoclopramide 5 mg/mL SDV 2 mL 10 MG IVP (10:01)
[2022-12-27] MEDS: sodium chloride 0.9% 1,000 ML 999 ML IV (10:01)
[2022-12-27] MEDS: acetaminophen 1,000 MG/100 ML PIGGYBACK 400 MG IV (10:01)
[2022-12-27 10:05] LABS: Alanine Aminotransferase 9 U/L (0-33); Albumin Level 5.1 g/dL (3.5-5.2); Alkaline Phosphatase 62 U/L (35-105); Anion Gap 18.1 (5-19); Aspartate Amino Transferase 17 U/L (0-32); Blood Urea Nitrogen 15 mg/dL (6-20); Calcium 9.8 mg/dL (8.5-10.5); Carbon Dioxide 20 mmol/L (22-29); Chloride 105 mmol/L (98-107); Globulin 3.2 g/dL (1.3-4.6); Glomerular Filtration Rate 103.7 mL/min (90-130); Glucose 126 mg/dL (65-115); Lipase 17 U/L (13-60); Osmolality Calculated 290 mOsm/kg (285-295); Potassium 4.1 mmol/L (3.5-5.1); Sodium 139 mmol/L (136-145); Total Bilirubin 0.6 mg/dL (0.15-1.2); Total Protein 8.3 g/dL (6.6-8.7)
[2022-12-27 10:08] VITALS: BP 127/45; PULSE 55; RESP 18; O2SAT 100
[2022-12-27 11:34] LABS: Add Urine Microscopic? NO; Charge for UA Resulting for Rev
[2022-12-27 11:36] VITALS: PULSE 50; RESP 16; O2SAT 100
[2022-12-27 11:45] LABS: Amphetamines Screen Urine Negative (Negative); Barbiturates Screen Urine Negative (Negative); Benzodiazepines Screen Urine Negative (Negative); Cocaine Screen Urine Negative (Negative); Opiate Screen Urine Negative (Negative); PCP Screen Urine Negative (Negative); THC Screen Urine Positive (Negative)
[2022-12-27 11:54] LABS: SARS Covid-2 Antigen negative (Negative)
[2022-12-27 11:54] LABS: Bilirubin Urine Neg (Negative); Blood Urine Neg (Negative); Glucose Urine UA Norm (Normal); HCG Qualitative Urine. Negative (Negative); Ketones Urine 2+ (Negative); Leukocyte Esterase Urine Negative (Negative); Nitrate Urine Negative (Negative); Protein Urine Neg (Negative); Sulfosalicylic Acid Urine Negative (Negative); Urine Appearance Clear (CLEAR); Urine Color Yellow (Yellow); Urobilinogen Urine Norm (Negative); pH Urine 8 (5-7)
== END 2022-12-27 13:19 | disposition home or self-care (01) ==
PROVIDERS: Emergency Provider Physician Assistant
DX: R11.2 Nausea with vomiting, unspecified (principal); F12.90 Cannabis use, unspecified, uncomplicated; Z11.52 Encounter for screening for COVID-19
CPT/HCPCS: 80053; 80306; 81003; 81025; 83690; 85025; 85651; 86140; 87426; 96374; 96375; 99284; J0131; J2765; J7030

== ENCOUNTER 2022-12-28 06:55 | Emergency (ER) | payer SELFPAY ==
[2022-12-28 06:56] VITALS: BP 110/72; PULSE 67; RESP 24; TEMP 36.7; O2SAT 100; BMI 22.6
--- NOTE | 2022-12-28 07:00 | CTR_ITS ---
PROCEDURE INFORMATION: Exam: CT Abdomen And Pelvis With Contrast Exam date and time: 12/28/2022 7:33 AM Age: 22 years old Clinical indication: Abdominal pain TECHNIQUE: Imaging protocol: Computed tomography of the abdomen and pelvis with contrast. Radiation optimization: All CT scans at this facility use at least one of these dose optimization techniques: automated exposure control; mA and/or kV adjustment per patient size (includes targeted exams where dose is matched to clinical indication); or iterative reconstruction. Contrast material: OMNI 350; Contrast volume: 100 ml; Contrast route: INTRAVENOUS (IV); REPORTING DATA: Count of CT and Cardiac NM exams in prior 12 months: This patient has received [address] and 0 known cardiac nuclear medicine studies in the 12 months prior to the current study. COMPARISON: CT abdomen pelvis w con* [id number] 09/16/2022 3:30 PM RADIATION DOSE METRICS: Total DLP (mGy-cm): 458.5 FINDINGS: Liver: Normal. No mass. Gallbladder and bile ducts: Normal. No calcified stones. No ductal dilation. Pancreas: Normal. No ductal dilation. Spleen: Normal. No splenomegaly. Adrenal glands: Normal. No mass. Kidneys and ureters: Normal. No hydronephrosis. Stomach and bowel: Unremarkable. No obstruction. No mucosal thickening. Appendix: No evidence of appendicitis. Intraperitoneal space: Unremarkable. No free air. No significant fluid collection. Vasculature: Unremarkable. No abdominal aortic aneurysm. Lymph nodes: Unremarkable. No enlarged lymph nodes. Urinary bladder: Unremarkable as visualized. Reproductive: Unremarkable as visualized. Bones/joints: Unremarkable. No acute fracture. Soft tissues: Unremarkable. CT/CT abdomen pelvis w con* [id number] IMPRESSION: No acute findings.
--- NOTE | 2022-12-28 07:11 | W.ED.NAVMDI ---
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 Patient presented to ER with abdominal pain yesterday as well as vomiting patient did appear to be a very poor historian in which did not allow the medical provider to do a full medical screening examination immediately however she did allude that she was using cannabis patient had negative lab work except for some ketones in her urine which she was subsequent discharged home. Patient presents in by EMS this morning as she has again abdominal pain and vomiting. Patient on exam appears to be a very poor historian reporting concerns about her anxiety. Patient does not endorse any recent fevers or chills blood in her emesis reporting no diarrhea or any other associated symptoms she does endorse generalized abdominal discomfort. Associated nausea: Yes Associated symtoms: Reports anxiety and nausea; Denies change in vision, chest pain, fatigue, headache(s), malaise or palpitations Review of Systems General: Reports: 10 or more systems reviewed and unremarkable except in HPI and below Const: Denies: fever(s), chills, fatigue or malaise Eyes: Denies: change in vision or blurry vision Card: Denies: chest pain or palpitations Resp: Denies: dyspnea or productive cough GI: Reports: abdominal pain, nausea, vomiting and GI cramping; Denies: hematemesis or diarrhea : Denies: flank pain Musc: Denies: extremity pain or extremity swelling Skin/Breast: Denies: rash or pruritus Neuro: Denies: headache(s) Psych: Reports: anxiety; Denies: depression Vivek/Lymph: Denies: easy bleeding All/Imm: Denies: urticaria, throat swelling or facial swelling PFSH ED PFSH: Medical History No pertinent past medical history Surgical History No pertinent past surgical history Family History Denies family history of Colon cancer Ovarian cancer Diabetes Ovarian cyst Heart disease Breast cancer Hypertension Uterine cancer Thyroid disease Female Reproductive History: Date of last menstrual period: 12/27/22 Physical Exam Const: COMMON NORMALS: patient oriented x3 and healthy appearing; apparent distress (Patient appears very anxious on exam active dry heaves appreciated) HENMT: COMMON NORMALS: normocephalic and atraumatic HEAD & SCALP: normocephalic and atraumatic Eye: COMMON NORMALS: Equal, round and reactive pupils present and EOMs intact bilaterally PUPIL: Yes Equal, round and reactive pupils present Neck/C-Spine: COMMON NORMALS: full ROM, supple and no JVD Lymph: LYMPHATIC: no lymphadenopathy noted Chest: COMMONS NORMALS: normal inspection of the chest and normal palpation of entire chest wall Resp: COMMON NORMALS: normal respiratory effort, No retractions and clear to auscultation bilaterally EFFORT & INSPECTION: Yes able to speak in complete sentences and Yes symmetric chest movement AUSCULTATION: clear to auscultation bilaterally Cardio: COMMON NORMALS: no JVD, regular rate and regular rhythm RATE: regular rate RHYTHM: regular rhythm GI: COMMON NORMALS: Normal to inspection, nondistended, normoactive bowel sounds present and Soft to palpation; negative for non-tender (Diffuse moderate abdominal tenderness noted mostly appreciated to the epiga) INSPECTION: Yes normal to inspection PALPATION: Yes Soft to palpation : COMMON NORMALS: Yes no CVA tenderness BLADDER/KIDNEY EXAM: Yes no CVA tenderness Back/Pelvis: COMMON NORMALS: no CVA tenderness Extremity: COMMON NORMALS: normal to inspection and full ROM Neuro: COMMON NORMALS: patient oriented x3, CN's II-XII intact bilaterally, moves all extremities and no focal motor deficits Psych: COMMON NORMALS: mental status grossly normal, Normal thought process present, cooperative and normal affect THOUGHT PROCESS: Normal thought process present Skin: COMMON NORMALS: no rashes or lesions noted GENERAL SKIN EXAM: no rashes or lesions noted Course Vital Signs: Vital signs: Vital Signs Temperature 98.1 F 12/28/22 06:56 Pulse Rate 57 L 12/28/22 07:32 Respiratory Rate 16 12/28/22 09:06 Blood Pressure 110/72 12/28/22 07:32 Pulse Oximetry 100 12/28/22 09:06 Oxygen Delivery Me thod Room Air 12/28/22 09:06 MDM - Nausea/Vomiting/Diarrhea Medical Decision Making I did can consult the patient at that at length most likely unfortunatelyt the patient will never unfortunately outgrow this condition in which she needs to halt any additional cannabis use. At this time we will be starting an IV giving her fluids for hydration capsaicin Benadryl Zofran for her current symptoms and IV fluids we will continue to follow due to patient having abdominal pain that is worsening we will be obtaining a CT abdomen pelvis with IV contrast. We will continue to follow CAT scan imaging came back reassuring patient has some ketosis in her urine otherwise no active abnormalities besides being positive for cannabis thoroughly educated the patient in regards to the risks of using any cannabis which I thoroughly discussed that she needs to discontinue the use of it from this day onward or she will have recurrences such as this today patient advised to continue on her medications already prescribed to her yesterday which advised return the interim if any of her symptoms persist or worse. Lab Data 12/28/22 07:15 12/28/22 07:15 Radiology Impressions Abdomen/Pelvis CT 12/28/22 07:00 IMPRESSION: No acute findings. Laboratory Results WBC 6.17 10^3/uL (3.29-11.43) 12/28/22 07:15 RBC 5.18 10^6/uL (3.85-5.65) 12/28/22 07:15 Hgb 15.00 g/dL (11.27-16.99) 12/28/22 07:15 Hct 45.6 % (36-47) 12/28/22 07:15 MCV 88.0 fl (85-98) 12/28/22 07:15 MCH 29.0 pg (27-33) 12/28/22 07:15 MCHC 32.9 g/dL (30-55) 12/28/22 07:15 RDW 13.3 % (12.1-15.1) 12/28/22 07:15 Plt Count 287 10^3/cmm (157-399) 12/28/22 07:15 MPV 10.8 fL (7.4-10.4) H 12/28/22 07:15 Neut % (Auto) 61.9 % 12/28/22 07:15 Lymph % (Auto) 31.8 % 12/28/22 07:15 [place] % (Auto) 5.3 % 12/28/22 07:15 Eos % (Auto) 0.3 % 12/28/22 07:15 Baso % (Auto) 0.5 % 12/28/22 07:15 Neut # (Auto) 3.82 10^3/uL (1.8-7.7) 12/28/22 07:15 Lymph # (Auto) 2.0 10^3/uL (0.8-4.8) 12/28/22 07:15 [place] # (Auto) 0.3 10^3/uL (0.2-0.9) 12/28/22 07:15 Eos # (Auto) 0.0 10^3/uL (0.0-0.8) 12/28/22 07:15 Baso # (Auto) 0.0 10^3/uL (0.0-0.1) 12/28/22 07:15 Nucleated RBC % (auto) 0 % 12/28/22 07:15 Nucleated RBCs # 0.0 /100WBC 12/28/22 07:15 Sodium 140 mmol/L (136-145) 12/28/22 07:15 Potassium 3.3 mmol/L (3.5-5.1) L 12/28/22 07:15 Chloride 104 mmol/L (98-107) 12/28/22 07:15 Carbon Dioxide 22 mmol/L (22-29) 12/28/22 07:15 Anion Gap 17.3 (5-19) 12/28/22 07:15 BUN 9 mg/dL (6-20) 12/28/22 07:15 Creatinine 0.9 mg/dL (0.5-0.9) 12/28/22 07:15 GFR Calculation 77.6 mL/min (90-130) L 12/28/22 07:15 Glucose 98 mg/dL (65-115) 12/28/22 07:15 Calculated Osmolality 289 mOsm/kg (285-295) 12/28/22 07:15 Calcium 9.7 mg/dL (8.5-10.5) 12/28/22 07:15 Total Bilirubin 1.1 mg/dL (0.15-1.2) 12/28/22 07:15 AST 16 U/L (0-32) 12/28/22 07:15 ALT 9 U/L (0-33) 12/28/22 07:15 Alkaline Phosphatase 62 U/L (35-105) 12/28/22 07:15 C-Reactive Protein 3.0 mg/L (0.0-4.9) 12/28/22 07:15 Total Protein 8.5 g/dL (6.6-8.7) 12/28/22 07:15 Albumin 5.2 g/dL (3.5-5.2) 12/28/22 07:15 Globulin 3.3 g/dL (1.3-4.6) 12/28/22 07:15 Lipase 24 U/L (13-60) 12/28/22 07:15 Urine Color Dark yellow (Yellow) 12/28/22 08:14 Urine Appearance Hazy (CLEAR) A 12/28/22 08:14 Urine pH 7 (5-7) 12/28/22 08:14 Ur Specific [place] 1.005 (1.005-1.030) 12/28/22 08:14 Urine Protein 1+ (Negative) H 12/28/22 08:14 Urine Glucose (UA) Norm (Normal) 12/28/22 08:14 Urine Ketones 1+ (Negative) H 12/28/22 08:14 Urine Blood 3+ (Negative) H 12/28/22 08:14 Urine Nitrate Negative (Negative) 12/28/22 08:14 Urine Bilirubin Neg (Negative) 12/28/22 08:14 Urine Urobilinogen Norm mg/dL (Negative) 12/28/22 08:14 Ur Leukocyte Esterase Trace (Negative) H 12/28/22 08:14 Urine RBC >100 /hpf (0-2) H 12/28/22 08:14 Urine WBC 0-4 /hpf (0-5) H 12/28/22 08:14 Ur Squamous Epith Cells 15-25 /hpf (0-5) H 12/28/22 08:14 Amorphous Sediment Not Reportable 12/28/22 08:14 Urine Bacteria 1+ /hpf (NONE) H 12/28/22 08:14 Urine Opiates Screen Negative ng/mL (Negative) 12/28/22 08:14 Ur Barbiturates Screen Negative ng/mL (Negative) 12/28/22 08:14 Ur Phencyclidine Scrn Negative ng/mL (Negative) 12/28/22 08:14 Ur Amphetamines Screen Negative ng/mL (Negative) 12/28/22 08:14 U Benzodiazepines Scrn Negative ng/mL (Negative) 12/28/22 08:14 Urine Cocaine Screen Negative ng/mL (Negative) 12/28/22 08:14 U Marijuana (THC) Screen Positive ng/mL (Negative) H 12/28/22 08:14 Ethyl Alcohol < 10 mg/dL (0-10) 12/28/22 07:15 All radiology interpretation(s) finalized by discharge Discharge Plan Discharge Patient Disposition: Home Clinical Impression: Cannabinoid hyperemesis syndrome, Dehydration, Vomiting Condition: Stable Prescriptions: No Action multivitamin Tablet 1 tab PO QAM ascorbic acid (vitamin C) [Vitamin C] 500 mg Tablet 500 mg PO QAM Women's Multivitamin 18 mg iron-400 mcg-500 mg Tablet 1 tab PO QAM ondansetron 4 mg tablet,disintegrating 4 mg PO Q8H 5 Days Qty: 15 0RF capsaicin 0.1 % cream 1 applic topical BID Qty: 42.5 0RF Rx Instructions: do not wash area for at least 30 min after application Discharge Orders: Discharge ED (Routine); Ordered 12/28/22 Ordered By: Junior Herrmann Discharge Diet: Full LIquid Discharge Activity: Increase activity as tolerated Patient Instructions: Dehydration (ED), Acute Nausea and Vomiting (ED), Cannabis Use Disorder (ED), Anxiety (ED), Cyclic Vomiting Syndrome (ED) Activity Restrictions/Additional Instructions: As instructed previously you are instructed to discontinue the use of any marijuana or cannabis items at this time or you will continue to have these same symptoms you have been provided appropriate medications for your condition. Please further follow-up your primary care doctor in 2 to 3 days in which to return the interim if any of your symptoms persist or worse. Coding Level of Care Code ED Proof Carrier for Ceci Vallecillo
[2022-12-28] MEDS: capsaicin 0.025% cream 60 gm 1 APPLIC TOPICAL (07:22)
[2022-12-28] MEDS: ondansetron 2 mg/ML SDV 2 mL 4 MG IVP (07:22)
[2022-12-28] MEDS: pantoprazole 40 mg SDV IVP (07:23)
[2022-12-28 07:30] LABS: Basophils % 0.5 %; Eosinophils % 0.3 %; Hematocrit 45.6 % (36-47); Lymphocytes % 31.8 %; Mean Corpuscular HGB Conc 32.9 g/dL (30-55); Mean Platelet Volume 10.8 fL (7.4-10.4); Monocytes # 0.3 10^3/uL (0.2-0.9); Monocytes % 5.3 %; Neutrophils # 3.82 10^3/uL (1.8-7.7); Neutrophils % 61.9 %; Nucleated Red Blood Cells % 0 %; Platelet Count 287 10^3/cmm (157-399); Red Blood Count 5.18 10^6/uL (3.85-5.65); Red Cell Distribution Width 13.3 % (12.1-15.1); White Blood Count 6.17 10^3/uL (3.29-11.43)
[2022-12-28 07:32] VITALS: BP 110/72; PULSE 57; RESP 25; O2SAT 98
[2022-12-28] MEDS: iohexol 350 mg/mL 500 mL Btl (per mL) IV (07:35)
[2022-12-28 07:40] LABS: Alanine Aminotransferase 9 U/L (0-33); Albumin Level 5.2 g/dL (3.5-5.2); Alkaline Phosphatase 62 U/L (35-105); Anion Gap 17.3 (5-19); Aspartate Amino Transferase 16 U/L (0-32); Blood Urea Nitrogen 9 mg/dL (6-20); Calcium 9.7 mg/dL (8.5-10.5); Carbon Dioxide 22 mmol/L (22-29); Chloride 104 mmol/L (98-107); Globulin 3.3 g/dL (1.3-4.6); Glomerular Filtration Rate 77.6 mL/min (90-130); Glucose 98 mg/dL (65-115); Lipase 24 U/L (13-60); Osmolality Calculated 289 mOsm/kg (285-295); Potassium 3.3 mmol/L (3.5-5.1); Sodium 140 mmol/L (136-145); Total Bilirubin 1.1 mg/dL (0.15-1.2); Total Protein 8.5 g/dL (6.6-8.7)
[2022-12-28 07:43] LABS: Alcohol Level < 10 mg/dL (0-10)
[2022-12-28] MEDS: diphenhydrAMINE 50 mg/mL SDV 1mL 25 MG IVP (07:43)
[2022-12-28] MEDS: sodium chloride 0.9% 1,000 ML 999 ML IV (07:44)
--- NOTE | 2022-12-28 08:10 | PC.NURSE ---
pt ripped out IV in attempt to roll over, during this nurse's attempt to start second IV, pt refused insertion d/t tourniquet being too tight . Dr. Herrmann notified. NS infusion stopped.
[2022-12-28 08:36] LABS: Amphetamines Screen Urine Negative (Negative); Barbiturates Screen Urine Negative (Negative); Benzodiazepines Screen Urine Negative (Negative); Cocaine Screen Urine Negative (Negative); Opiate Screen Urine Negative (Negative); PCP Screen Urine Negative (Negative); THC Screen Urine Positive (Negative)
[2022-12-28 08:41] LABS: Bilirubin Urine Neg (Negative); Blood Urine 3+ (Negative); Glucose Urine UA Norm (Normal); Ketones Urine 1+ (Negative); Leukocyte Esterase Urine Trace (Negative); Nitrate Urine Negative (Negative); Protein Urine 1+ (Negative); Specific Gravity, Urine 1.005 (1.005-1.030); Urine Appearance Hazy (CLEAR); Urine Color Dark Yellow (Yellow); Urobilinogen Urine Norm (Negative); pH Urine 7 (5-7)
[2022-12-28 08:42] LABS: Add Urine Culture? No; Add Urine Microscopic? YES; Bacteria Urine 1+ /hpf; RBC Urine >100 /hpf (0-2); Squamous Epithelial Cell Urine 15-25 /hpf (0-5); WBC Urine 0-4 /hpf (0-5)
[2022-12-28] MEDS: metoclopramide 5 mg/mL SDV 2 mL 10 MG IVP (08:59)
[2022-12-28 09:06] VITALS: RESP 16; O2SAT 100
[2022-12-28] MEDS: sodium chloride 0.9% 1,905.09 ML 1905.09 ML IV (09:19)
[2022-12-28 10:02] VITALS: RESP 16; O2SAT 100
== END 2022-12-28 10:04 | disposition home or self-care (01) ==
PROVIDERS: Emergency Provider Emergency Medicine
DX: R11.2 Nausea with vomiting, unspecified (principal); F12.90 Cannabis use, unspecified, uncomplicated; E86.0 Dehydration
CPT/HCPCS: 74177; 80053; 80306; 80307; 81001; 83690; 85025; 86140; 96361; 96374; 96375; 99285; C9113; J1200; J2405; J2765; J7030; Q9967

== ENCOUNTER → 2023-04-03 16:00 | Outpatient (BNVA) | payer SELFPAY | PROVIDERS: Visit Provider Nurse Practitioner Women's Health | DX: Z32.00 Encounter for pregnancy test, result unknown (principal); N92.6 Irregular menstruation, unspecified | CPT/HCPCS: 81025; 84702 ==

== ENCOUNTER 2023-04-21 08:18 | Emergency (ER) | payer MEDICAID, SELFPAY ==
[2023-04-21 08:47] VITALS: BP 103/60; PULSE 78; RESP 18; TEMP 36.8; O2SAT 98; BMI 25.8
[2023-04-21 09:02] LABS: Basophils % 0.4 %; Eosinophils # 0.1 10^3/uL (0.0-0.8); Eosinophils % 0.7 %; Hematocrit 39.1 % (36-47); Lymphocytes # 1.9 10^3/uL (0.8-4.8); Lymphocytes % 25.1 %; Mean Corpuscular HGB Conc 33.2 g/dL (30-55); Mean Corpuscular Volume 90.3 fl (85-98); Mean Platelet Volume 10.5 fL (7.4-10.4); Monocytes # 0.4 10^3/uL (0.2-0.9); Neutrophils # 5.05 10^3/uL (1.8-7.7); Neutrophils % 68.7 %; Nucleated Red Blood Cells % 0 %; Platelet Count 231 10^3/cmm (157-399); Red Blood Count 4.33 10^6/uL (3.85-5.65); Red Cell Distribution Width 13.2 % (12.1-15.1); White Blood Count 7.36 10^3/uL (3.29-11.43)
--- NOTE | 2023-04-21 09:12 | ED_ITS ---
HPI - Female Genitourinary 2 General: Chief complaint: Vaginal Bleeding Stated complaint: vaginal bleeding, unknown length Time Seen by Provider: 04/21/23 08:32 Source: patient Mode of arrival: ambulatory Limitations: no limitations History of Present Illness: Patient is a 22-year-old female at unknown gestational age here for complaints of intermittent abdominal cramping and spotting. Patient states her was confirmed through the women[facility] health clinic a few weeks ago. She had had some spotting and pain at that visit as well. She states she has a dating ultrasound scheduled in a few weeks. Based on her LMP she estimates herself to be roughly 7 to 9 weeks . She states that the spotting is mainly light pink with streaks of dark blood . Other than that she is not having any vaginal discharge. She is monogamous with her significant other and no concerns for STIs. No fevers. Onset (ago): day(s) Quality of pain: cramping Consistency: intermittent Vaginal discharge: none Vaginal bleeding: scant Exacerbating factors: none Relieving factors: none Associated symptoms: Deny abdominal pain, headache(s) or nausea Treatment prior to arrival: none Sexual activity: Yes Patient : Yes Possible : unsure if Review of Systems 2 Const: Denies: fever(s), chills, body aches, fatigue or malaise Card: Denies: chest pain Resp: Denies: dyspnea GI: Denies: abdominal pain, nausea, vomiting or diarrhea : Reports: pelvic pain (intermittent cramping); Denies: flank pain, difficulty voiding, dysuria, urinary frequency, urinary urgency or urinary hesitancy Musc: Denies: neck pain, back pain, extremity pain or joint pain Skin/Breast: Denies: rash Neuro: Denies: headache(s), numbness in extremities, weakness in extremities or sensory changes PFSH ED 2 PFSH: Medical History No pertinent past medical history Surgical History No pertinent past surgical history Family History Grandmother Breast cancer maternal Father Diabetes Grandfather Diabetes paternal Denies family history of Colon cancer Ovarian cancer Ovarian cyst Heart disease Hypertension Uterine cancer Thyroid disease Physical Exam 2 Const: COMMON NORMALS: no acute distress, average body habitus, patient oriented x3, no limitations, healthy appearing, alert and well nourished Eye: COMMON NORMALS: no scleral icterus Resp: COMMON NORMALS: normal respiratory effort and clear to auscultation bilaterally AUSCULTATION: clear to auscultation bilaterally Cardio: COMMON NORMALS: regular rate and regular rhythm RATE: regular rate RHYTHM: regular rhythm GI: COMMON NORMALS: Normal to inspection, nondistended, normoactive bowel sounds present, Soft to palpation, No hepatosplenomegaly present and no masses INSPECTION: Yes normal to inspection AUSCULTATION: Yes normoactive bowel sounds PALPATION: Yes Soft to palpation, Yes Tenderness to palpation present (GI) (mild lower discomfort), No Guarding due to palpation present (GI), No Rigid due to palpation and Yes No hepatosplenomegaly present : COMMON NORMALS: Yes no CVA tenderness BLADDER/KIDNEY EXAM: Yes no CVA tenderness OB/EXTERNAL & SPECULUM: Deferred OB/external & speculum exam Back/Pelvis: COMMON NORMALS: no CVA tenderness Extremity: GENERAL: Yes normal exam except as noted Neuro: ÓSCAR COMA SCALE: document GCS findings Óscar coma scale eye opening: Spontaneous Roberts coma scale verbal response: Orientated Roberts coma scale motor response: Obey commands Roberts coma scale total score: 15 COMMON NORMALS: patient oriented x3, moves all extremities, no focal motor deficits, no sensory deficits noted and gait normal SENSORIUM/ORIENTATION: Yes alert Skin: COMMON NORMALS: no rashes or lesions noted GENERAL SKIN EXAM: no rashes or lesions noted Course 2 Vital Signs: Vital signs: Vital Signs Temperature 98.2 F 04/21/23 08:47 Pulse Rate 59 L 04/21/23 10:00 Respiratory Rate 18 04/21/23 08:47 Blood Pressure 108/59 04/21/23 10:00 Pulse Oximetry 100 04/21/23 10:00 Oxygen Delivery Me thod Room Air 04/21/23 10:00 [facility] - Female Medical Decision Making Patient is a 22-year-old female here for complaints of some intermittent pelvic discomforts and vaginal spotting. Blood work and UA are unremarkable. OB ultrasound showing a single intrauterine gestation of 8 weeks and 0 days. Normal heart rate. Patient is O positive. She will follow-up with OB as currently scheduled. Return to the ED precautions given. Lab Data 04/21/23 08:51 04/21/23 08:51 Laboratory Results WBC 7.36 10^3/uL (3.29-11.43) 04/21/23 08:51 RBC 4.33 10^6/uL (3.85-5.65) 04/21/23 08:51 Hgb 13.00 g/dL (11.27-16.99) 04/21/23 08:51 Hct 39.1 % (36-47) 04/21/23 08:51 MCV 90.3 fl (85-98) 04/21/23 08:51 MCH 30.0 pg (27-33) 04/21/23 08:51 MCHC 33.2 g/dL (30-55) 04/21/23 08:51 RDW 13.2 % (12.1-15.1) 04/21/23 08:51 Plt Count 231 10^3/cmm (157-399) 04/21/23 08:51 MPV 10.5 fL (7.4-10.4) H 04/21/23 08:51 Neut % (Auto) 68.7 % 04/21/23 08:51 Lymph % (Auto) 25.1 % 04/21/23 08:51 [place] % (Auto) 5.0 % 04/21/23 08:51 Eos % (Auto) 0.7 % 04/21/23 08:51 Baso % (Auto) 0.4 % 04/21/23 08:51 Neut # (Auto) 5.05 10^3/uL (1.8-7.7) 04/21/23 08:51 Lymph # (Auto) 1.9 10^3/uL (0.8-4.8) 04/21/23 08:51 [place] # (Auto) 0.4 10^3/uL (0.2-0.9) 04/21/23 08:51 Eos # (Auto) 0.1 10^3/uL (0.0-0.8) 04/21/23 08:51 Baso # (Auto) 0.0 10^3/uL (0.0-0.1) 04/21/23 08:51 Nucleated RBC % (auto) 0 % 04/21/23 08:51 Nucleated RBCs # 0.0 /100WBC 04/21/23 08:51 Sodium 134 mmol/L (136-145) L 04/21/23 08:51 Potassium 3.9 mmol/L (3.5-5.1) 04/21/23 08:51 Chloride 104 mmol/L (98-107) 04/21/23 08:51 Carbon Dioxide 20 mmol/L (22-29) L 04/21/23 08:51 Anion Gap 13.9 (5-19) 04/21/23 08:51 BUN 7 mg/dL (6-20) 04/21/23 08:51 Creatinine 0.5 mg/dL (0.5-0.9) 04/21/23 08:51 GFR Calculation 152.9 mL/min (90-130) H 04/21/23 08:51 Glucose 95 mg/dL (65-115) 04/21/23 08:51 Calculated Osmolality 276 mOsm/kg (285-295) L 04/21/23 08:51 Calcium 8.5 mg/dL (8.5-10.5) 04/21/23 08:51 Total Bilirubin 0.5 mg/dL (0.15-1.2) 04/21/23 08:51 AST 11 U/L (0-32) 04/21/23 08:51 ALT 8 U/L (0-33) 04/21/23 08:51 Alkaline Phosphatase 44 U/L (35-105) 04/21/23 08:51 Total Protein 6.7 g/dL (6.6-8.7) 04/21/23 08:51 Albumin 4.1 g/dL (3.5-5.2) 04/21/23 08:51 Globulin 2.6 g/dL (1.3-4.6) 04/21/23 08:51 Ser , Semi-Qnt 43623.00 mIU/mL 04/21/23 08:51 Urine Color Yellow (Yellow) 04/21/23 10:03 Urine Appearance Clear (CLEAR) 04/21/23 10:03 Urine pH 7 (5-7) 04/21/23 10:03 Ur Specific [place] 1.005 (1.005-1.030) 04/21/23 10:03 Urine Protein Neg (Negative) 04/21/23 10:03 Urine Glucose (UA) Norm (Normal) 04/21/23 10:03 Urine Ketones Negative (Negative) 04/21/23 10:03 Urine Blood Neg (Negative) 04/21/23 10:03 Urine Nitrate Negative (Negative) 04/21/23 10:03 Urine Bilirubin Neg (Negative) 04/21/23 10:03 Urine Urobilinogen Norm mg/dL (Negative) 04/21/23 10:03 Ur Leukocyte Esterase Negative (Negative) 04/21/23 10:03 XR interpretation done by ED provider, pending radiology final review (prelim report given by [facility]) Discharge Plan Discharge Patient Disposition: Home Clinical Impression: First-trimester bleeding Condition: Stable Prescriptions: No Action promethazine 25 mg tablet 25 mg PO Q6H PRN (Reason: Nausea And Vomiting) 28 mg iron- 800 mcg Tablet 1 tab PO DAILY Discharge Orders: Discharge ED (Routine); Ordered 04/21/23 Ordered By: Shona Kirk Activity Restrictions/Additional Instructions: As we discussed continue to follow-up with OB as scheduled. You may return to the emergency department for severe vaginal bleeding (soaking more than 1 pad an hour) or severe abdominal pain, or any other concerns you may have. Coding Level of Care Code ED Supervising Chef for Ceci Vallecillo
[2023-04-21 09:27] LABS: Alanine Aminotransferase 8 U/L (0-33); Albumin Level 4.1 g/dL (3.5-5.2); Alkaline Phosphatase 44 U/L (35-105); Anion Gap 13.9 (5-19); Aspartate Amino Transferase 11 U/L (0-32); Blood Urea Nitrogen 7 mg/dL (6-20); Calcium 8.5 mg/dL (8.5-10.5); Carbon Dioxide 20 mmol/L (22-29); Chloride 104 mmol/L (98-107); Creatinine Clr Calc Pharmacy 178.4851; Globulin 2.6 g/dL (1.3-4.6); Glomerular Filtration Rate 152.9 mL/min (90-130); Glucose 95 mg/dL (65-115); Osmolality Calculated 276 mOsm/kg (285-295); Potassium 3.9 mmol/L (3.5-5.1); Sodium 134 mmol/L (136-145); Total Bilirubin 0.5 mg/dL (0.15-1.2); Total Protein 6.7 g/dL (6.6-8.7)
[2023-04-21 10:00] VITALS: BP 108/59; PULSE 59; O2SAT 100
--- NOTE | 2023-04-21 10:09 | US_ITS ---
WS: [id number] EARLY OBSTETRICAL ULTRASOUND (<14 WEEKS). HISTORY: spotting/cramping COMPARISON: None available. Single intrauterine gestational sac is identified. Cardiac activity at 150 BPM. [place]-rump length viviane sures 1.6 cm which corresponds to a gestation of 8 weeks 0-day. Normal-appearing yolk sac and amnion demonstrated. No subchorionic hemorrhage. No free fluid. Normal size ovaries with no mass. IMPRESSION: 1. Single intrauterine gestation of 8 weeks 0 days with an EDC of 12/01/2023. 2. Normal heart rate.
[2023-04-21 10:18] LABS: Add Urine Microscopic? NO; Charge for UA Resulting for Rev
[2023-04-21 10:20] LABS: Bilirubin Urine Neg (Negative); Blood Urine Neg (Negative); Glucose Urine UA Norm (Normal); Ketones Urine Negative (Negative); Leukocyte Esterase Urine Negative (Negative); Nitrate Urine Negative (Negative); Protein Urine Neg (Negative); Specific Gravity, Urine 1.005 (1.005-1.030); Urine Appearance Clear (CLEAR); Urine Color Yellow (Yellow); Urobilinogen Urine Norm (Negative); pH Urine 7 (5-7)
== END 2023-04-21 10:54 | disposition home or self-care (01) ==
PROVIDERS: Family Medicine; Emergency Provider Physician Assistant
DX: O20.9 Hemorrhage in early pregnancy, unspecified (principal); Z3A.08 8 weeks gestation of pregnancy
CPT/HCPCS: 36415; 76801; 80053; 81003; 84702; 85025; 99284

== ENCOUNTER 2023-04-25 04:04 | Emergency (ER) | payer SELFPAY ==
[2023-04-25 04:11] VITALS: BP 104/63; PULSE 97; RESP 22; O2SAT 100
[2023-04-25] MEDS: ondansetron 2 mg/ML SDV 2 mL 8 MG IVP (04:17)
[2023-04-25] MEDS: sodium chloride 0.9% 1,000 ML 999 ML IV (04:18)
[2023-04-25 04:21] LABS: Basophils % 0.3 %; Eosinophils # 0.1 10^3/uL (0.0-0.8); Hematocrit 42.3 % (36-47); Lymphocytes # 2.2 10^3/uL (0.8-4.8); Mean Corpuscular HGB Conc 33.3 g/dL (30-55); Mean Corpuscular Hemoglobin 29.7 pg (27-33); Mean Corpuscular Volume 89.1 fl (85-98); Mean Platelet Volume 10.8 fL (7.4-10.4); Monocytes # 0.5 10^3/uL (0.2-0.9); Monocytes % 4.7 %; Neutrophils # 8.11 10^3/uL (1.8-7.7); Neutrophils % 73.7 %; Nucleated Red Blood Cells % 0 %; Platelet Count 236 10^3/cmm (157-399); Red Blood Count 4.75 10^6/uL (3.85-5.65); Red Cell Distribution Width 13.2 % (12.1-15.1)
--- NOTE | 2023-04-25 04:40 | ED_ITS ---
HPI - Nausea/Vomiting/Diarrhea 2 General: Chief complaint: Nausea/Vomiting/Diarrhea Stated complaint: 8wks , spotting, n/v Time Seen by Provider: 04/25/23 04:10 History of Present Illness: 22-year-old female presents to the emerg ency department with complaints of intermittent vaginal spotting, abdominal pain and intermittent nausea with vomiting. Patient was seen here in the emergency department previously on 04/21/2023 for similar complaints. She did receive an ultrasound with confirmatory intrauterine gestation of 8 weeks at that time. Patient is O+. She was advised to follow-up with her SHEET TURNER as previously scheduled. Associated nausea: Yes Associated symtoms: Reports nausea Review of Systems 2 General: Reports: 10 or more systems reviewed and unremarkable except in HPI and below GI: Reports: abdominal pain, nausea and vomiting : Reports: vaginal bleeding PFS ED 2 PFSH: Medical History No pertinent past medical history Surgical History No pertinent past surgical history Family History Grandmother Breast cancer maternal Father Diabetes Grandfather Diabetes paternal Denies family history of Colon cancer Ovarian cancer Ovarian cyst Heart disease Hypertension Uterine cancer Thyroid disease Physical Exam 2 Narrative: EXAM NARRATIVE: Constitutional: the patient appears well nourished and of normal development. Vital signs as documented. No acute distress at present. Alert and oriented-to person, place, time and situation. Head, eyes, ears, nose, mouth, throat: Normocephalic, atraumatic. Pupils-equal, round, reactive to light. No scleral icterus. Normal-appearing external ears. Normal appearing nasal turbinates, no drainage. No obvious oral lesions, posterior oropharynx without erythema or exudates. Neck: Supple, trachea is midline, no lymphadenopathy, no jugular venous distension, thyromegaly, or carotid bruits. Carotid upstrokes are brisk bilaterally. Lungs: clear to auscultation to all lung wright. Symmetrical rise and fall of chest, no obvious signs of increased work of breathing at present. Cardiac: Regular rate and rhythm, positive S1, S2. No murmurs, rubs or gallops that I can appreciate Abdomen: Soft, non-tender to palpation, normal active bowel sounds to all quadrants. No palpable masses, no organomegaly and abdominal bruits. Extremities: 2+ pulses in the upper extremities that are equal bilaterally, 2+ pulses in the lower extremities that are equal bilaterally. Non-edematous. Moves all extremities well, sensation to all extremities are noted. Skin: Warm, dry, intact. Course 2 Vital Signs: Vital signs: Vital Signs Pulse Rate 97 04/25/23 05:40 Respiratory Rate 22 H 04/25/23 05:40 Blood Pressure 104/63 04/25/23 05:40 Pulse Oximetry 100 04/25/23 05:40 MDM - Nausea/Vomiting/Diarrhea Medical Decision Making Physical exam completed and documented. I will provide IV access as well as IV fluid rehydration and obtain a CBC and CMP and provide IV Zofran. Medical Records I reviewed the patient's medical records. Lab Data I reviewed the patient's lab results. 04/25/23 04:12 04/25/23 04:42 Laboratory Results WBC 11.00 10^3/uL (3.29-11.43) 04/25/23 04:12 RBC 4.75 10^6/uL (3.85-5.65) 04/25/23 04:12 Hgb 14.10 g/dL (11.27-16.99) 04/25/23 04:12 Hct 42.3 % (36-47) 04/25/23 04:12 MCV 89.1 fl (85-98) 04/25/23 04:12 MCH 29.7 pg (27-33) 04/25/23 04:12 MCHC 33.3 g/dL (30-55) 04/25/23 04:12 RDW 13.2 % (12.1-15.1) 04/25/23 04:12 Plt Count 236 10^3/cmm (157-399) 04/25/23 04:12 MPV 10.8 fL (7.4-10.4) H 04/25/23 04:12 Neut % (Auto) 73.7 % 04/25/23 04:12 Lymph % (Auto) 20.0 % 04/25/23 04:12 [place] % (Auto) 4.7 % 04/25/23 04:12 Eos % (Auto) 1.0 % 04/25/23 04:12 Baso % (Auto) 0.3 % 04/25/23 04:12 Neut # (Auto) 8.11 10^3/uL (1.8-7.7) H 04/25/23 04:12 Lymph # (Auto) 2.2 10^3/uL (0.8-4.8) 04/25/23 04:12 [place] # (Auto) 0.5 10^3/uL (0.2-0.9) 04/25/23 04:12 Eos # (Auto) 0.1 10^3/uL (0.0-0.8) 04/25/23 04:12 Baso # (Auto) 0.0 10^3/uL (0.0-0.1) 04/25/23 04:12 Nucleated RBC % (auto) 0 % 04/25/23 04:12 Nucleated RBCs # 0.0 /100WBC 04/25/23 04:12 PT 13.90 SECONDS (12.1-14.9) 04/25/23 05:07 INR 1.03 (0.8-1.2) 04/25/23 05:07 APTT 30.7 SECONDS (23.9-36.7) 04/25/23 05:07 Sodium 137 mmol/L (136-145) 04/25/23 04:42 Potassium 4.2 mmol/L (3.5-5.1) 04/25/23 04:42 Chloride 106 mmol/L (98-107) 04/25/23 04:42 Carbon Dioxide 17 mmol/L (22-29) L 04/25/23 04:42 Anion Gap 18.2 (5-19) 04/25/23 04:42 BUN 11 mg/dL (6-20) 04/25/23 04:42 Creatinine 0.5 mg/dL (0.5-0.9) 04/25/23 04:42 GFR Calculation 152.9 mL/min (90-130) H 04/25/23 04:42 Glucose 84 mg/dL (65-115) 04/25/23 04:42 Calculated Osmolality 283 mOsm/kg (285-295) L 04/25/23 04:42 Calcium 8.2 mg/dL (8.5-10.5) L 04/25/23 04:42 Total Bilirubin 0.2 mg/dL (0.15-1.2) 04/25/23 04:42 AST 16 U/L (0-32) 04/25/23 04:42 ALT 8 U/L (0-33) 04/25/23 04:42 Alkaline Phosphatase 44 U/L (35-105) 04/25/23 04:42 Total Protein 6.6 g/dL (6.6-8.7) 04/25/23 04:42 Albumin 3.9 g/dL (3.5-5.2) 04/25/23 04:42 Globulin 2.7 g/dL (1.3-4.6) 04/25/23 04:42 HCG, Qual Positive (Negative) H 04/25/23 05:07 Ser , Semi-Qnt 06359.00 mIU/mL 04/25/23 05:07 Urine Color Light yellow (Yellow) 04/25/23 05:15 Urine Appearance Clear (CLEAR) 04/25/23 05:15 Urine pH 8 (5-7) H 04/25/23 05:15 Ur Specific [place] 1.015 (1.005-1.030) 04/25/23 05:15 Urine Protein Neg (Negative) 04/25/23 05:15 Urine Glucose (UA) Norm (Normal) 04/25/23 05:15 Urine Ketones 1+ (Negative) H 04/25/23 05:15 Urine Blood Neg (Negative) 04/25/23 05:15 Urine Nitrate Negative (Negative) 04/25/23 05:15 Urine Bilirubin Neg (Negative) 04/25/23 05:15 Prot Sulfosalicylic Acd Negative (Negative) 04/25/23 05:15 Urine Urobilinogen Neg mg/dL (Negative) 04/25/23 05:15 Ur Leukocyte Esterase Negative (Negative) 04/25/23 05:15 Urine RBC None /hpf (0-2) 04/25/23 05:15 Urine WBC None /hpf (0-5) 04/25/23 05:15 Ur Squamous Epith Cells 0-4 /hpf (0-5) H 04/25/23 05:15 Amorphous Sediment Not Reportable 04/25/23 05:15 Urine Bacteria 1+ /hpf (NONE) H 04/25/23 05:15 Urine Mucus 2+ /hpf 04/25/23 05:15 Urine Opiates Screen Negative ng/mL (Negative) 04/25/23 05:15 Ur Barbiturates Screen Negative ng/mL (Negative) 04/25/23 05:15 Ur Phencyclidine Scrn Negative ng/mL (Negative) 04/25/23 05:15 Ur Amphetamines Screen Negative ng/mL (Negative) 04/25/23 05:15 U Benzodiazepines Scrn Negative ng/mL (Negative) 04/25/23 05:15 Urine Cocaine Screen Negative ng/mL (Negative) 04/25/23 05:15 U Marijuana (THC) Screen Positive ng/mL (Negative) H 04/25/23 05:15 No radiology studies performed this visit Discharge Plan Discharge Patient Disposition: Home Clinical Impression: Hyperemesis gravidarum, First-trimester bleeding Condition: Stable Prescriptions: New ondansetron HCl 4 mg tablet 4 mg PO Q12H 5 Days Qty: 10 0RF No Action promethazine 25 mg tablet 25 mg PO Q6H PRN (Reason: Nausea And Vomiting) 28 mg iron- 800 mcg Tablet 1 tab PO DAILY Discharge Orders: Discharge ED (Routine); Ordered 04/25/23 Ordered By: Amadou Moncada Referrals: Dago Ramírez MD [Primary Care Provider] - Discharge Diet: Advance as tolerated Discharge Activity: Resume usual activity Patient Instructions: Opioid Safety, Pain Management Activity Restrictions/Additional Instructions: Activity Restrictions/Additional Instructions: Thank you for choosing [facility] for your healthcare needs today. Please realize that you were seen in the Emergency Department and that we are providing you with an emergency medical screening exam and this may not be a complete and all inclusive of all the testing and or medical work-up that you may need to determine your ailment or severity of your illness. It is very important that you follow-up as instructed with your Primary care provider or Specialist for additional evaluation and to discuss your medical treatment plan. Coding Level of Care Code ED Business Services Director for Ceci Vallecillo
[2023-04-25] MEDS: promethazine 25 mg/mL SDV 1 mL 12.5 MG IM (05:03)
[2023-04-25 05:04] LABS: Alanine Aminotransferase 8 U/L (0-33); Albumin Level 3.9 g/dL (3.5-5.2); Alkaline Phosphatase 44 U/L (35-105); Blood Urea Nitrogen 11 mg/dL (6-20); Calcium 8.2 mg/dL (8.5-10.5); Carbon Dioxide 17 mmol/L (22-29); Chloride 106 mmol/L (98-107); Globulin 2.7 g/dL (1.3-4.6); Glomerular Filtration Rate 152.9 mL/min (90-130); Glucose 84 mg/dL (65-115); Osmolality Calculated 283 mOsm/kg (285-295); Sodium 137 mmol/L (136-145); Total Bilirubin 0.2 mg/dL (0.15-1.2); Total Protein 6.6 g/dL (6.6-8.7)
[2023-04-25 05:07] LABS: Anion Gap 18.2 (5-19); Aspartate Amino Transferase 16 U/L (0-32); Potassium 4.2 mmol/L (3.5-5.1)
[2023-04-25 05:26] LABS: INR 1.03 (0.8-1.2)
[2023-04-25 05:27] LABS: Partial Thromboplastin Time 30.7 SECONDS (23.9-36.7)
[2023-04-25 05:34] LABS: HCG, Serum Qual Positive (Negative)
[2023-04-25 05:40] VITALS: BP 104/63; PULSE 97; RESP 22; O2SAT 100
[2023-04-25 05:40] LABS: Bilirubin Urine Neg (Negative); Blood Urine Neg (Negative); Glucose Urine UA Norm (Normal); Ketones Urine 1+ (Negative); Leukocyte Esterase Urine Negative (Negative); Nitrate Urine Negative (Negative); Protein Urine Neg (Negative); Specific Gravity, Urine 1.015 (1.005-1.030); Squamous Epithelial Cell Urine 0-4 /hpf (0-5); Sulfosalicylic Acid Urine Negative (Negative); Urine Appearance Clear (CLEAR); Urine Color Light yellow (Yellow); Urobilinogen Urine Neg (Negative); pH Urine 8 (5-7)
[2023-04-25 05:41] LABS: Add Urine Culture? No; Bacteria Urine 1+ /hpf; Mucus Urine 2+ /hpf
[2023-04-25 05:42] LABS: Amphetamines Screen Urine Negative (Negative); Barbiturates Screen Urine Negative (Negative); Benzodiazepines Screen Urine Negative (Negative); Cocaine Screen Urine Negative (Negative); Opiate Screen Urine Negative (Negative); PCP Screen Urine Negative (Negative); THC Screen Urine Positive (Negative)
[2023-04-25] MEDS: lactated ringers 1,000 ML 999 ML IV (06:00)
== END 2023-04-25 06:30 | disposition home or self-care (01) ==
PROVIDERS: Emergency Provider Internal Medicine; PCP Obstetrics & Gynecology
DX: O21.0 Mild hyperemesis gravidarum (principal); Z3A.08 8 weeks gestation of pregnancy
CPT/HCPCS: 36415; 80053; 80306; 81001; 84702; 84703; 85025; 85610; 85730; 96361; 96372; 96374; 99284; J2405; J2550; J7030; J7120

== ENCOUNTER → 2023-05-01 15:36 | Outpatient (BNVA) | payer MEDICAID, SELFPAY | PROVIDERS: PCP Obstetrics & Gynecology; Visit Provider Obstetrics & Gynecology | DX: Z34.92 Encounter for supervision of normal pregnancy, unspecified, second trimester (principal); Z3A.14 14 weeks gestation of pregnancy | CPT/HCPCS: 76801 ==

== ENCOUNTER 2023-05-06 11:50 | Emergency (ER) | payer MEDICAID, SELFPAY ==
[2023-05-06 11:51] VITALS: BMI 20.1
[2023-05-06 11:56] VITALS: BP 107/70; PULSE 68; RESP 16; TEMP 36.7; O2SAT 99
--- NOTE | 2023-05-06 12:04 | ED_ITS ---
HPI - Arrhythmia/Palpitations 2 General: Chief Complaint: Arrhythmia/Palpitations Stated Complaint: AMS Time Seen by Provider: 05/06/23 11:52 Source: patient Mode of arrival: ambulatory History of Present Illness: 22-year-old female G3, P2 at an estimate d 9 to 10 weeks gestation based on LMP. Confirmed by 9-week ultrasound on May 01, 2023. Ultrasound at that time showed a single intrauterine . She presents today with reports of vaginal bleeding overnight. On April 21 she had a beta-hCG of 74,790 on April 25 her beta-hCG was 64,924. She has been lightheaded dizzy continued vomiting through the night she been seen previously for hyperemesis gravidarum. This morning she had episode of vaginal bleeding although it is stopped she arrived unclosed. She did have a heart rate reported by EMS of 40 with blood pressure of 120 she was given a single dose of atropine. She denies any dysuria urgency or frequency or any pain at this time MD complaint: rapid heart beat Severity: moderate Associated symptoms: Deny anxiety, cough, diaphoresis, muscle cramps, nausea, paresthesias, pre-syncope, sense of impending doom, short of breath, syncope or vomiting Review of Systems 2 Const: Denies: diaphoresis Card: Denies: syncope or pre-syncope GI: Denies: nausea or vomiting Musc: Denies: muscle cramps Psych: Denies: anxiety PFSH ED 2 PFSH: Medical History No pertinent past medical history Surgical History No pertinent past surgical history Family History Grandmother Breast cancer maternal Father Diabetes Grandfather Diabetes paternal Denies family history of Colon cancer Ovarian cancer Ovarian cyst Heart disease Hypertension Uterine cancer Thyroid disease Course 2 Vital Signs: Vital signs: Vital Signs Temperature 98.0 F 05/06/23 11:56 Pulse Rate 62 05/06/23 13:24 Respiratory Rate 16 05/06/23 11:56 Blood Pressure 98/63 05/06/23 13:33 Pulse Oximetry 97 05/06/23 13:33 Oxygen Delivery Me thod Room Air 05/06/23 13:33 MDM - Arrhythmia/Palpitations Medical Decision Making Beta-hCG has decreased but on bedside ultrasound can see a intrauterine with a heart rate in the 170s and above. She is not having any active vaginal bleeding at this time her vital signs are otherwise stable urine did show ketones. We have given her a couple liters of fluid she is feeling better the antiemetics she had been prescribed previously were helpful however she had run out we will give her a new prescription for those. At this point I think she can be discharged home but she should follow-up with her primary paraprofessional aide teacher later this week. Medical Records I reviewed the patient's medical records. Lab Data I reviewed the patient's lab results. 05/06/23 12:30 05/06/23 12:30 Laboratory Results WBC 9.96 10^3/uL (3.29-11.43) 05/06/23 12:30 RBC 4.35 10^6/uL (3.85-5.65) 05/06/23 12:30 Hgb 13.00 g/dL (11.27-16.99) 05/06/23 12:30 Hct 37.8 % (36-47) 05/06/23 12:30 MCV 86.9 fl (85-98) 05/06/23 12:30 MCH 29.9 pg (27-33) 05/06/23 12:30 MCHC 34.4 g/dL (30-55) 05/06/23 12:30 RDW 13.2 % (12.1-15.1) 05/06/23 12:30 Plt Count 232 10^3/cmm (157-399) 05/06/23 12:30 MPV 10.9 fL (7.4-10.4) H 05/06/23 12:30 Neut % (Auto) 89.3 % 05/06/23 12:30 Lymph % (Auto) 7.8 % 05/06/23 12:30 [place] % (Auto) 2.2 % 05/06/23 12:30 Eos % (Auto) 0.2 % 05/06/23 12:30 Baso % (Auto) 0.3 % 05/06/23 12:30 Neut # (Auto) 8.89 10^3/uL (1.8-7.7) H 05/06/23 12:30 Lymph # (Auto) 0.8 10^3/uL (0.8-4.8) 05/06/23 12:30 [place] # (Auto) 0.2 10^3/uL (0.2-0.9) 05/06/23 12:30 Eos # (Auto) 0.0 10^3/uL (0.0-0.8) 05/06/23 12:30 Baso # (Auto) 0.0 10^3/uL (0.0-0.1) 05/06/23 12:30 Nucleated RBC % (auto) 0 % 05/06/23 12:30 Nucleated RBCs # 0.0 /100WBC 05/06/23 12:30 Sodium 137 mmol/L (136-145) 05/06/23 12:30 Potassium 3.7 mmol/L (3.5-5.1) 05/06/23 12:30 Chloride 107 mmol/L (98-107) 05/06/23 12:30 Carbon Dioxide 18 mmol/L (22-29) L 05/06/23 12:30 Anion Gap 15.7 (5-19) 05/06/23 12:30 BUN 10 mg/dL (6-20) 05/06/23 12:30 Creatinine 0.6 mg/dL (0.5-0.9) 05/06/23 12:30 GFR Calculation 123.9 mL/min (90-130) 05/06/23 12:30 Glucose 114 mg/dL (65-115) 05/06/23 12:30 Calculated Osmolality 284 mOsm/kg (285-295) L 05/06/23 12:30 Calcium 8.9 mg/dL (8.5-10.5) 05/06/23 12:30 Total Bilirubin 0.7 mg/dL (0.15-1.2) 05/06/23 12:30 AST 15 U/L (0-32) 05/06/23 12:30 ALT 8 U/L (0-33) 05/06/23 12:30 Alkaline Phosphatase 43 U/L (35-105) 05/06/23 12:30 Total Protein 7.2 g/dL (6.6-8.7) 05/06/23 12:30 Albumin 4.3 g/dL (3.5-5.2) 05/06/23 12:30 Globulin 2.9 g/dL (1.3-4.6) 05/06/23 12:30 Ser , Semi-Qnt 58835.00 mIU/mL 05/06/23 12:30 Urine Color Yellow (Yellow) 05/06/23 13:08 Urine Appearance Clear (CLEAR) 05/06/23 13:08 Urine pH 8 (5-7) H 05/06/23 13:08 Ur Specific [place] 1.015 (1.005-1.030) 05/06/23 13:08 Urine Protein Neg (Negative) 05/06/23 13:08 Urine Glucose (UA) Norm (Normal) 05/06/23 13:08 Urine Ketones 3+ (Negative) H 05/06/23 13:08 Urine Blood Neg (Negative) 05/06/23 13:08 Urine Nitrate Negative (Negative) 05/06/23 13:08 Urine Bilirubin Neg (Negative) 05/06/23 13:08 Prot Sulfosalicylic Acd Negative (Negative) 05/06/23 13:08 Urine Urobilinogen Neg mg/dL (Negative) 05/06/23 13:08 Ur Leukocyte Esterase Negative (Negative) 05/06/23 13:08 Rho(D) Type Rh positive 05/06/23 12:30 No radiology studies performed this visit Discharge Plan Discharge Patient Disposition: Home Clinical Impression: Hyperemesis gravidarum Condition: Stable Prescriptions: New promethazine 25 mg tablet 25 mg PO Q6H PRN (Reason: nausea and vomiting) Qty: 20 0RF No Action promethazine 25 mg tablet 25 mg PO Q6H PRN (Reason: Nausea And Vomiting) Qty: 30 0RF PNV [id number]-FA [] 28 mg iron- 800 mcg Tablet 1 tab PO DAILY ondansetron HCl 4 mg tablet 4 mg PO Q12H PRN (Reason: Nausea And Vomiting) Discharge Orders: Discharge ED (Routine); Ordered 05/06/23 Ordered By: Paulino Roper Referrals: Dago Ramírez MD [Primary Care Provider] - Discharge Diet: Usual diet Discharge Activity: Resume usual activity Patient Instructions: Opioid Safety, Pain Management Activity Restrictions/Additional Instructions: Thank you for choosing [facility] for your healthcare needs today. Please realize this is an emergency room and that we are providing you with a medical screening exam and this may not be complete and all inclusive of all the testing and or work up that you may need to determine your ailment or severity of your illness. It is very important that you follow up as instructed or that you return to the Emergency Department should you have concerns or if your condition changes or worsens in any way. You are seen today with report of vaginal bleeding. Since the bleeding is stopped and your Rh is positive no further treatment for this is needed at this time other than monitoring. Recommend pelvic rest for now. We did do a bedside ultrasound which confirmed good heart activity. Your beta-hCG has decreased slightly however this may not be significant given point in the which you are at. I did discuss with Dr. Wen he is not concerned about the change in beta-hCG his office will call you for follow-up tomorrow. Coding Level of Care Code ED Electronics Assembler And Tester for Ceci Vallecillo
[2023-05-06 12:39] LABS: Basophils % 0.3 %; Eosinophils % 0.2 %; Hematocrit 37.8 % (36-47); Lymphocytes # 0.8 10^3/uL (0.8-4.8); Lymphocytes % 7.8 %; Mean Corpuscular HGB Conc 34.4 g/dL (30-55); Mean Corpuscular Hemoglobin 29.9 pg (27-33); Mean Corpuscular Volume 86.9 fl (85-98); Mean Platelet Volume 10.9 fL (7.4-10.4); Monocytes # 0.2 10^3/uL (0.2-0.9); Monocytes % 2.2 %; Neutrophils # 8.89 10^3/uL (1.8-7.7); Neutrophils % 89.3 %; Nucleated Red Blood Cells % 0 %; Platelet Count 232 10^3/cmm (157-399); Red Blood Count 4.35 10^6/uL (3.85-5.65); Red Cell Distribution Width 13.2 % (12.1-15.1); White Blood Count 9.96 10^3/uL (3.29-11.43)
[2023-05-06] MEDS: sodium chloride 0.9% 1,000 ML 999 ML IV ×2 (12:40→13:11)
[2023-05-06 12:54] VITALS: BP 95/49; O2SAT 99
[2023-05-06 13:00] VITALS: O2SAT 100
[2023-05-06 13:04] LABS: Alanine Aminotransferase 8 U/L (0-33); Albumin Level 4.3 g/dL (3.5-5.2); Alkaline Phosphatase 43 U/L (35-105); Anion Gap 15.7 (5-19); Aspartate Amino Transferase 15 U/L (0-32); Blood Urea Nitrogen 10 mg/dL (6-20); Calcium 8.9 mg/dL (8.5-10.5); Carbon Dioxide 18 mmol/L (22-29); Chloride 107 mmol/L (98-107); Creatinine Clr Calc Pharmacy 134.1185; Globulin 2.9 g/dL (1.3-4.6); Glomerular Filtration Rate 123.9 mL/min (90-130); Glucose 114 mg/dL (65-115); Osmolality Calculated 284 mOsm/kg (285-295); Potassium 3.7 mmol/L (3.5-5.1); Sodium 137 mmol/L (136-145); Total Bilirubin 0.7 mg/dL (0.15-1.2); Total Protein 7.2 g/dL (6.6-8.7)
--- NOTE | 2023-05-06 13:13 | ECG_ITS ---
[facility] Test Date: 2023-05-06 Pat Name: Sherman Corona Department: Room: Gender: Female Dielectric Machine Operator: : 2000 Requested By: Paulino Jeffrey Order Number: [id number] Lisa MD: Rich Biggs M.D. Measurements Intervals [place] Rate: 61 P: 74 [place]: 166 QRS: 87 QRSD: 89 T: 49 QT: 454 QTc: 461 Interpretive Statements SINUS RHYTHM Compared to ECG 09/16/2022 15:57:40 No significant changes Electronically Signed On 05-06-2023 16:02:20 CREDIT RISK MANAGER by Rich Biggs M.D. [id number]
[2023-05-06 13:15] LABS: Add Urine Microscopic? NO; Charge for UA Resulting for Rev
[2023-05-06 13:24] VITALS: BP 107/39; PULSE 62; O2SAT 100
--- NOTE | 2023-05-06 13:24 | PC.PHAR ---
pt unable to verify medications-medications entered are from what ext shows has been filled recently and what was already entered from previously med rec from 04/23/23 med rec tech luis armando pang and rx written for promethazine 25mg q6h prn on 05/06/23
[2023-05-06 13:25] LABS: Bilirubin Urine Neg (Negative); Blood Urine Neg (Negative); Glucose Urine UA Norm (Normal); Ketones Urine 3+ (Negative); Leukocyte Esterase Urine Negative (Negative); Nitrate Urine Negative (Negative); Protein Urine Neg (Negative); Specific Gravity, Urine 1.015 (1.005-1.030); Sulfosalicylic Acid Urine Negative (Negative); Urine Appearance Clear (CLEAR); Urine Color Yellow (Yellow); Urobilinogen Urine Neg (Negative); pH Urine 8 (5-7)
[2023-05-06 13:33] VITALS: BP 98/63; O2SAT 97
--- NOTE | 2023-05-06 14:14 | PC.NURSE ---
PT AMBULATING ON TOP OF BLANKET. THIS NURSE ASKED RESIDENT TO AMBULATE ON THE FLOOR, PT REFUSED. PT EDUCATED ON RISK OF FALLING, PT STATED I KNOW. AND IT'S MY CHOICE TO WALK ON MY BLANKET.
== END 2023-05-06 14:13 | disposition home or self-care (01) ==
PROVIDERS: Emergency Provider Family Medicine; PCP Obstetrics & Gynecology
DX: O21.0 Mild hyperemesis gravidarum (principal); Z3A.10 10 weeks gestation of pregnancy
CPT/HCPCS: 36415; 80053; 81003; 84702; 85025; 93005; 96360; 99284; J7030

== ENCOUNTER 2023-05-08 10:07 | Emergency (ER) | payer MEDICAID, SELFPAY ==
[2023-05-08 10:09] VITALS: BP 105/61; PULSE 55; RESP 18; TEMP 36.6; O2SAT 100; BMI 25.8
[2023-05-08 10:48] LABS: Basophils % 0.2 %; Eosinophils % 0.1 %; Hematocrit 43.4 % (36-47); Lymphocytes # 1.5 10^3/uL (0.8-4.8); Lymphocytes % 18.9 %; Mean Corpuscular HGB Conc 33.9 g/dL (30-55); Mean Corpuscular Hemoglobin 29.7 pg (27-33); Mean Corpuscular Volume 87.7 fl (85-98); Mean Platelet Volume 11.3 fL (7.4-10.4); Monocytes # 0.5 10^3/uL (0.2-0.9); Monocytes % 5.6 %; Neutrophils # 6.11 10^3/uL (1.8-7.7); Neutrophils % 75.1 %; Nucleated Red Blood Cells % 0 %; Platelet Count 251 10^3/cmm (157-399); Red Blood Count 4.95 10^6/uL (3.85-5.65); Red Cell Distribution Width 13.2 % (12.1-15.1); White Blood Count 8.15 10^3/uL (3.29-11.43)
[2023-05-08] MEDS: ondansetron 2 mg/ML SDV 2 mL 4 MG IVP (10:53)
[2023-05-08 10:56] LABS: Alanine Aminotransferase 10 U/L (0-33); Albumin Level 4.8 g/dL (3.5-5.2); Alkaline Phosphatase 50 U/L (35-105); Anion Gap 19.3 (5-19); Aspartate Amino Transferase 13 U/L (0-32); Blood Urea Nitrogen 8 mg/dL (6-20); Calcium 9.3 mg/dL (8.5-10.5); Carbon Dioxide 20 mmol/L (22-29); Chloride 97 mmol/L (98-107); Creatinine Clr Calc Pharmacy 178.4851; Globulin 3.5 g/dL (1.3-4.6); Glomerular Filtration Rate 152.9 mL/min (90-130); Glucose 81 mg/dL (65-115); Osmolality Calculated 273 mOsm/kg (285-295); Potassium 3.3 mmol/L (3.5-5.1); Sodium 133 mmol/L (136-145); Total Protein 8.3 g/dL (6.6-8.7)
[2023-05-08 11:38] LABS: Bilirubin Urine Neg (Negative); Blood Urine Neg (Negative); Glucose Urine UA Norm (Normal); Ketones Urine 3+ (Negative); Nitrate Urine Negative (Negative); Protein Urine Neg (Negative); Urine Appearance SL Hazy (CLEAR); Urine Color Yellow (Yellow); Urobilinogen Urine Norm (Negative); pH Urine 6.5 (5-7)
[2023-05-08 11:39] LABS: Add Urine Microscopic? YES; Leukocyte Esterase Urine 1+ (Negative)
--- NOTE | 2023-05-08 11:47 | ED_ITS ---
HPI - Nausea/Vomiting/Diarrhea 2 General: Chief complaint: Nausea/Vomiting/Diarrhea Stated complaint: n/v, rt sided abd pain, Time Seen by Provider: 05/08/23 10:14 Source: patient Mode of arrival: ambulatory History of Present Illness: 22-year-old female presents emergency ro om patient is G3, P2 she is at approximately 10 weeks gestation based on LMP confirmed by 9-week ultrasound. She was seen earlier this week had a little bit of vaginal spotting that has not recurred but she continues to have significant difficulty with nausea or vomiting we discharged home with promethazine that seem to be working but her symptoms became significant enough that were no longer managed by it. She denies any hematemesis cough tenderness no dysuria urgency or frequency MD elicited complaint: nausea and vomiting Onset (ago): day(s) Description of vomiting: watery and bilious Associated nausea: Yes Severity: severe Quality: cramping Exacerbating factors: none Relieving factors: none Associated symtoms: Reports nausea; Denies altered mental status, anxiety, bloating, change in vision, chest pain, cough, diaphoresis, decreased urine output, dizziness, dysuria, epistaxis, fatigue, fecal incontinence, fevers/chills, headache(s), anorexia, malaise, myalgias, numbness, palpitations, rash, short of breath, syncope, tenesmus, tinnitus or weakness Review of Systems 2 Const: Denies: fatigue, malaise or diaphoresis Eyes: Denies: change in vision ENMT: Denies: tinnitus or epistaxis Card: Denies: chest pain, palpitations or syncope Resp: Denies: dyspnea GI: Reports: abdominal pain, nausea and vomiting; Denies: hematemesis, coffee ground emesis, bloating or fecal incontinence : Denies: dysuria Musc: Denies: neck pain or back pain Skin/Breast: Denies: rash Neuro: Denies: headache(s) or dizziness Psych: Denies: anxiety PFSH ED 2 PFSH: Medical History No pertinent past medical history Surgical History No pertinent past surgical history Family History Grandmother Breast cancer maternal Father Diabetes Grandfather Diabetes paternal Denies family history of Colon cancer Ovarian cancer Ovarian cyst Heart disease Hypertension Uterine cancer Thyroid disease Physical Exam 2 Const: EXAM LIMITATIONS: no altered mental status GENERAL APPEARANCE: c ooperative ORIENTATION/CONSCIOUSNESS: Yes awake, Yes oriented to person, Yes oriented to place and Yes oriented to time HENMT: COMMON NORMALS: normocephalic, atraumatic and hearing grossly normal bilaterally HEAD & SCALP: normocephalic and atraumatic Resp: COMMON NORMALS: normal respiratory effort, No retractions, No use of accessory muscles and clear to auscultation bilaterally AUSCULTATION: clear to auscultation bilaterally Cardio: COMMON NORMALS: regular rate, regular rhythm and No murmurs present (Cardio) RATE: regular rate RHYTHM: regular rhythm GI: COMMON NORMALS: No hepatosplenomegaly present AUSCULTATION: Yes normoactive bowel sounds PALPATION: Yes Tenderness to palpation present (GI) (Diffuse nonspecific), No Guarding due to palpation present (GI) and Yes No hepatosplenomegaly present : COMMON NORMALS: Yes no CVA tenderness BLADDER/KIDNEY EXAM: Yes no CVA tenderness Back/Pelvis: COMMON NORMALS: no CVA tenderness Extremity: COMMON NORMALS: normal to inspection, capillary refill normal, no clubbing, cyanosis or edema, no calf tenderness and no pedal edema Neuro: SENSORIUM/ORIENTATION: Yes oriented to person, Yes oriented to place and Yes oriented to time Skin: COMMON NORMALS: no rashes or lesions noted GENERAL SKIN EXAM: no rashes or lesions noted Course 2 Vital Signs: Vital signs: Vital Signs Temperature 97.9 F 05/08/23 10:09 Pulse Rate 55 L 05/08/23 10:09 Respiratory Rate 18 05/08/23 10:09 Blood Pressure 105/61 05/08/23 10:09 Pulse Oximetry 100 05/08/23 10:09 Oxygen Delivery Me thod Room Air 05/08/23 10:09 MDM - Nausea/Vomiting/Diarrhea Medical Decision Making Hyperemesis gravidarum. She also has a mild cystitis started on Macrobid twice daily will start her on Diclegis just 2 tablets tonight and 1 tablet twice daily if not improving increase to 1 tab in the morning 2 tablets at night if still not improving increase to 2 tablets twice daily. Can continue to use Phenergan as needed follow-up with her wet cotton feeder as soon as she is able. Repeat abdominal exam prior to discharge does not show any acute findings. Medical Records I reviewed the patient's medical records. Lab Data I reviewed the patient's lab results. 05/08/23 10:14 05/08/23 10:14 Laboratory Results WBC 8.15 10^3/uL (3.29-11.43) 05/08/23 10:14 RBC 4.95 10^6/uL (3.85-5.65) 05/08/23 10:14 Hgb 14.70 g/dL (11.27-16.99) 05/08/23 10:14 Hct 43.4 % (36-47) 05/08/23 10:14 MCV 87.7 fl (85-98) 05/08/23 10:14 MCH 29.7 pg (27-33) 05/08/23 10:14 MCHC 33.9 g/dL (30-55) 05/08/23 10:14 RDW 13.2 % (12.1-15.1) 05/08/23 10:14 Plt Count 251 10^3/cmm (157-399) 05/08/23 10:14 MPV 11.3 fL (7.4-10.4) H 05/08/23 10:14 Neut % (Auto) 75.1 % 05/08/23 10:14 Lymph % (Auto) 18.9 % 05/08/23 10:14 Morgan % (Auto) 5.6 % 05/08/23 10:14 Eos % (Auto) 0.1 % 05/08/23 10:14 Baso % (Auto) 0.2 % 05/08/23 10:14 Neut # (Auto) 6.11 10^3/uL (1.8-7.7) 05/08/23 10:14 Lymph # (Auto) 1.5 10^3/uL (0.8-4.8) 05/08/23 10:14 Morgan # (Auto) 0.5 10^3/uL (0.2-0.9) 05/08/23 10:14 Eos # (Auto) 0.0 10^3/uL (0.0-0.8) 05/08/23 10:14 Baso # (Auto) 0.0 10^3/uL (0.0-0.1) 05/08/23 10:14 Nucleated RBC % (auto) 0 % 05/08/23 10:14 Nucleated RBCs # 0.0 /100WBC 05/08/23 10:14 Sodium 133 mmol/L (136-145) L 05/08/23 10:14 Potassium 3.3 mmol/L (3.5-5.1) L 05/08/23 10:14 Chloride 97 mmol/L (98-107) L 05/08/23 10:14 Carbon Dioxide 20 mmol/L (22-29) L 05/08/23 10:14 Anion Gap 19.3 (5-19) H 05/08/23 10:14 BUN 8 mg/dL (6-20) 05/08/23 10:14 Creatinine 0.5 mg/dL (0.5-0.9) 05/08/23 10:14 GFR Calculation 152.9 mL/min (90-130) H 05/08/23 10:14 Glucose 81 mg/dL (65-115) 05/08/23 10:14 Calculated Osmolality 273 mOsm/kg (285-295) L 05/08/23 10:14 Calcium 9.3 mg/dL (8.5-10.5) 05/08/23 10:14 Total Bilirubin 1.0 mg/dL (0.15-1.2) 05/08/23 10:14 AST 13 U/L (0-32) 05/08/23 10:14 ALT 10 U/L (0-33) 05/08/23 10:14 Alkaline Phosphatase 50 U/L (35-105) 05/08/23 10:14 Total Protein 8.3 g/dL (6.6-8.7) 05/08/23 10:14 Albumin 4.8 g/dL (3.5-5.2) 05/08/23 10:14 Globulin 3.5 g/dL (1.3-4.6) 05/08/23 10:14 Urine Color Yellow (Yellow) 05/08/23 11:29 Urine Appearance Sl hazy (CLEAR) A 05/08/23 11:29 Urine pH 6.5 (5-7) 05/08/23 11:29 Ur Specific Goessel 1.010 (1.005-1.030) 05/08/23 11:29 Urine Protein Neg (Negative) 05/08/23 11:29 Urine Glucose (UA) Norm (Normal) 05/08/23 11:29 Urine Ketones 3+ (Negative) H 05/08/23 11:29 Urine Blood Neg (Negative) 05/08/23 11:29 Urine Nitrate Negative (Negative) 05/08/23 11:29 Urine Bilirubin Neg (Negative) 05/08/23 11:29 Urine Urobilinogen Norm mg/dL (Negative) 05/08/23 11:29 Ur Leukocyte Esterase 1+ (Negative) H 05/08/23 11:29 Urine RBC 0-4 /hpf (0-2) H 05/08/23 11:29 Urine WBC 5-10 /hpf (0-5) H 05/08/23 11:29 Ur Squamous Epith Cells 5-10 /hpf (0-5) H 05/08/23 11:29 Amorphous Sediment Not Reportable 05/08/23 11:29 Urine Bacteria 2+ /hpf (NONE) H 05/08/23 11:29 Urine Mucus None /hpf 05/08/23 11:29 No radiology studies performed this visit Discharge Plan Discharge Patient Disposition: Home Clinical Impression: Hyperemesis gravidarum Condition: Stable Prescriptions: New doxylamine-pyridoxine (vit B6) [Diclegis] 10-10 mg tablet,delayed release (DR/EC) 1 tab PO BID Qty: 60 0RF Rx Instructions: Take 2 tablets tonight, then 1 p.o. twice daily if not improving over the next 2 days increase to 1 tablet in the morning and 2 tablets in the evening if still not improving in 2 days increase to 2 tablets twice a day Macrobid 100 mg capsule 100 mg PO BID 7 Days Qty: 14 0RF Rx Instructions: must administer with a meal/food No Action PNV [id number] fumarate-FA [] 28 mg iron- 800 mcg Tablet 1 tab PO DAILY Discharge Orders: Discharge ED (Routine); Ordered 05/08/23 Ordered By: Paulino Roper Referrals: Dago Ramírez MD [Primary Care Provider] - Discharge Diet: As Directed Discharge Activity: Increase activity as tolerated Patient Instructions: Hyperemesis Gravidarum (ED), Opioid Safety, Pain Management Activity Restrictions/Additional Instructions: Thank you for choosing [facility] for your healthcare needs today. Please realize this is an emergency room and that we are providing you with a medical screening exam and this may not be complete and all inclusive of all the testing and or work up that you may need to determine your ailment or severity of your illness. It is very important that you follow up as instructed or that you return to the Emergency Department should you have concerns or if your condition changes or worsens in any way. You are seen in the emergency room for recurrent nausea and vomiting. You can continue to use the promethazine as needed. Start likely just take 2 tablets tonight 1 tablet twice daily beginning tomorrow if not improving in 2 days increase to 1 tab in the morning 2 tablets at night, if still not improving after 2 days increase to 2 tablets twice a day. Contact your wet cotton feeder's office for follow-up soon as you are able Coding Level of Care Code ED Substation Operator Apprentice for Ceci Vallecillo
[2023-05-08 11:50] LABS: Add Urine Culture? Yes; Bacteria Urine 2+ /hpf; RBC Urine 0-4 /hpf (0-2)
== END 2023-05-08 12:11 | disposition home or self-care (01) ==
PROVIDERS: Emergency Provider Family Medicine; PCP Obstetrics & Gynecology
DX: O21.0 Mild hyperemesis gravidarum (principal); Z3A.10 10 weeks gestation of pregnancy
CPT/HCPCS: 80053; 81001; 85025; 87086; 96374; 99284; J2405

== ENCOUNTER → 2023-05-26 10:06 | Outpatient (BNVA) | payer MEDICAID, SELFPAY | PROVIDERS: PCP Obstetrics & Gynecology; Visit Provider Obstetrics & Gynecology | DX: Z34.80 Encounter for supervision of other normal pregnancy, unspecified trimester (principal); Z3A.00 Weeks of gestation of pregnancy not specified | CPT/HCPCS: 84315; 87491; 87591; 88175 ==

== ENCOUNTER → 2023-06-19 07:55 | Outpatient (BNVA) | payer MEDICAID, SELFPAY | PROVIDERS: PCP Obstetrics & Gynecology; Visit Provider Nurse Practitioner Women's Health | DX: Z34.80 Encounter for supervision of other normal pregnancy, unspecified trimester (principal); Z3A.00 Weeks of gestation of pregnancy not specified | CPT/HCPCS: 82105; 84315 ==

== ENCOUNTER → 2023-07-17 09:12 | Outpatient (BNVA) | payer MEDICAID, SELFPAY | PROVIDERS: Visit Provider Obstetrics & Gynecology | DX: Z34.92 Encounter for supervision of normal pregnancy, unspecified, second trimester (principal); Z3A.19 19 weeks gestation of pregnancy | CPT/HCPCS: 76805 ==

== ENCOUNTER 2023-08-20 18:38 | Outpatient (CLI) | payer MEDICAID, SELFPAY ==
[2023-08-20 18:38] VITALS: BMI 25.3
[2023-08-20 19:51] VITALS: BP 105/55; PULSE 76
[2023-08-20 20:06] VITALS: BP 101/59; PULSE 106
[2023-08-20 20:22] VITALS: BP 103/59; PULSE 72
[2023-08-20 20:36] VITALS: BP 110/63; PULSE 75
[2023-08-20 20:51] VITALS: BP 111/63; PULSE 66
[2023-08-20 21:00] VITALS: BP 111/63; PULSE 66; RESP 16
--- NOTE | 2023-08-20 21:26 | PC.NURSE ---
Generalized other pain location was reported by patient to this RN as generalized pelvic pain.
== END 2023-08-20 21:12 | disposition home or self-care (01) ==
LOC: OPOB 18:45 → OBGYN 18:45
PROVIDERS: Visit Provider Obstetrics & Gynecology
DX: O26.899 Other specified pregnancy related conditions, unspecified trimester (principal); Z3A.00 Weeks of gestation of pregnancy not specified; R10.9 Unspecified abdominal pain; R10.2 Pelvic and perineal pain; H53.8 Other visual disturbances
CPT/HCPCS: 99211

== ENCOUNTER → 2023-09-03 11:33 | Outpatient (BNVA) | payer MEDICAID, SELFPAY | PROVIDERS: Visit Provider Nurse Practitioner Women's Health | DX: Z34.93 Encounter for supervision of normal pregnancy, unspecified, third trimester (principal); Z3A.27 27 weeks gestation of pregnancy | CPT/HCPCS: 76816; 82950; 84315; 85025 ==

== ENCOUNTER 2023-10-07 11:23 | Outpatient (CLI) | payer MEDICAID, SELFPAY ==
[2023-10-07 11:43] VITALS: BMI 26.9
[2023-10-07 12:00] VITALS: BP 104/58; PULSE 75
--- NOTE | 2023-10-07 12:39 | PC.NURSE ---
THIS RN SPOKE WITH EVELIN AT [facility] PATIENT GETTING A NOTE FOR LIGHT DUTY AT WORK, REPORTED AT REACTIVE NST AND NO CONTRACTIONS AND THAT DR. HWANG HAD GIVEN DISCHARGE ORDERS
== END 2023-10-07 12:53 | disposition home or self-care (01) ==
LOC: OPOB 11:35 → OBGYN 11:37
PROVIDERS: Visit Provider Obstetrics & Gynecology
DX: O26.899 Other specified pregnancy related conditions, unspecified trimester (principal); Z3A.00 Weeks of gestation of pregnancy not specified; R52 Pain, unspecified
CPT/HCPCS: 59025; 99211

== ENCOUNTER 2023-10-22 10:55 | Outpatient (CLI) | payer MEDICAID, SELFPAY ==
[2023-10-22] VITALS (30 sets, daily range): BP systolic 90–131; BP diastolic 51–83; PULSE 68–105; RESP 18; TEMP 36.4; BMI 26.8
--- NOTE | 2023-10-22 11:06 | USR_ITS ---
PROCEDURE INFORMATION: Exam: US , Limited Exam date and time: 10/22/2023 11:24 AM Age: 23 years old Clinical indication: Screening exam; Routine US, uterus; Additional info: Decreased movement, stanley, placenta placement LABS AND CLINICAL REPORTS: Gestational age (Established): 34 w 0 d Estimated due date (Established): 12/03/2023 TECHNIQUE: Imaging protocol: Real-time ultrasound of the maternal uterus with image documentation. Exam focused on the clinical indication. COMPARISON: [place] [id number] 09/03/2023 11:39 AM FINDINGS: Gestation: Intrauterine gestation. heart rate: 126 bpm presentation and position: Breech lie. Placenta: Posterior/fundal placenta. Amniotic fluid index: STANLEY is 9.42 cm. MATERNAL: Cervix: Cervical length measures 3.3 cm. US/US OB limited [id number] IMPRESSION: Unremarkable limited OB ultrasound.
[2023-10-22 12:13] LABS: Actim Prom Positive
[2023-10-22] MEDS: betamethasone susp 6 mg/mL 1 mL (per mL) 12 MG IM (12:49)
[2023-10-22 13:23] LABS: Basophils % 0.3 %; Eosinophils # 0.1 10^3/uL (0.0-0.8); Eosinophils % 1.8 %; Hematocrit 37.5 % (36-47); Lymphocytes # 1.4 10^3/uL (0.8-4.8); Lymphocytes % 20.9 %; Mean Corpuscular HGB Conc 31.7 g/dL (30-55); Mean Corpuscular Hemoglobin 27.5 pg (27-33); Mean Corpuscular Volume 86.8 fl (85-98); Mean Platelet Volume 11.2 fL (7.4-10.4); Monocytes # 0.5 10^3/uL (0.2-0.9); Monocytes % 6.9 %; Neutrophils # 4.76 10^3/uL (1.8-7.7); Neutrophils % 69.8 %; Nucleated Red Blood Cells % 0 %; Platelet Count 222 10^3/cmm (157-399); Red Blood Count 4.32 10^6/uL (3.85-5.65); White Blood Count 6.81 10^3/uL (3.29-11.43)
[2023-10-22] MEDS: sodium chloride 0.9% 1,000 ML 125 ML IV (13:46)
[2023-10-22] MEDS: vancomycin 1,500 MG/300 ML PIGGYBACK 200 MG IV (13:46)
[2023-10-22] MEDS: diphenhydrAMINE 50 mg Capsule PO (15:27)
[2023-10-22] MEDS: NIFEdipine 10 mg Capsule 30 MG PO (17:44)
== END 2023-10-22 20:15 | disposition intermediate care facility (04) ==
LOC: OPOB 11:00 → OBGYN 11:01
PROVIDERS: Visit Provider Obstetrics & Gynecology
DX: O36.8190 Decreased fetal movements, unspecified trimester, not applicable or unspecified (principal); Z3A.00 Weeks of gestation of pregnancy not specified
CPT/HCPCS: 36415; 59025; 76815; 84112; 84315; 85025; 86850; 86900; 96372; 99211; J0702; J3370; J7030; Q0163

== ENCOUNTER 2023-10-24 10:35 | Outpatient (CLI) | payer MEDICAID, SELFPAY ==
[2023-10-24 10:45] VITALS: BMI 26.9
[2023-10-24 10:49] VITALS: BP 104/50; PULSE 74
[2023-10-24 11:04] VITALS: BP 97/55; PULSE 75
[2023-10-24 11:20] VITALS: BP 108/55; PULSE 75
[2023-10-24 11:34] VITALS: BP 95/55; PULSE 84
--- NOTE | 2023-10-24 11:42 | PC.NURSE ---
Dr. Wen at bedside, sterile speculum exam and bedside ultrasound performed. Stated that cervix is closed, fern exam is negative, and fluid level looks appropriate on ultrasound. Orders received to discharge patient and that she may resume normal activity.
== END 2023-10-24 12:00 | disposition home or self-care (01) ==
LOC: OPOB 10:36 → OBGYN 10:37
PROVIDERS: Visit Provider Obstetrics & Gynecology
DX: O36.8190 Decreased fetal movements, unspecified trimester, not applicable or unspecified (principal); Z3A.00 Weeks of gestation of pregnancy not specified; R10.9 Unspecified abdominal pain
CPT/HCPCS: 59025; 99211

== ENCOUNTER → 2023-11-03 11:45 | Outpatient (BNVA) | payer MEDICAID, SELFPAY | PROVIDERS: Visit Provider Nurse Practitioner Women's Health | DX: Z34.80 Encounter for supervision of other normal pregnancy, unspecified trimester (principal) | CPT/HCPCS: 84315; 87081 ==

== ENCOUNTER 2023-11-10 22:28 | Outpatient (CLI) | payer MEDICAID, SELFPAY ==
[2023-11-10 22:27] VITALS: BMI 28.8
[2023-11-10 22:50] VITALS: BP 108/61; PULSE 86
[2023-11-10 23:06] VITALS: BP 112/55; PULSE 88
[2023-11-10 23:20] VITALS: BP 114/59; PULSE 93
[2023-11-10 23:35] VITALS: BP 102/57; PULSE 87
[2023-11-10 23:50] VITALS: BP 108/59; PULSE 95
[2023-11-11 00:05] VITALS: BP 94/52; PULSE 105
[2023-11-11 01:01] VITALS: BP 95/52; PULSE 105; RESP 17; TEMP 36.6
== END 2023-11-11 00:10 | disposition home or self-care (01) ==
LOC: OPOB 22:38 → OBGYN 22:45
PROVIDERS: Visit Provider Obstetrics & Gynecology
DX: O26.899 Other specified pregnancy related conditions, unspecified trimester (principal); Z3A.00 Weeks of gestation of pregnancy not specified; R10.9 Unspecified abdominal pain
CPT/HCPCS: 59025; 99211

== ENCOUNTER → 2023-11-13 08:01 | Outpatient (BNVA) | payer MEDICAID, SELFPAY | PROVIDERS: Visit Provider Obstetrics & Gynecology | DX: Z53.9 Procedure and treatment not carried out, unspecified reason (principal) | CPT/HCPCS: 84315 ==

== ENCOUNTER 2023-11-27 15:33 | Inpatient (IN) | payer MEDICAID, SELFPAY ==
[2023-11-27] VITALS (19 sets, daily range): BP systolic 102–151; BP diastolic 55–78; PULSE 66–93; RESP 16; TEMP 36.6–36.7; O2SAT 100; BMI 28.2
[2023-11-27 17:19] LABS: Basophils % 0.2 %; Eosinophils # 0.1 10^3/uL (0.0-0.8); Eosinophils % 0.5 %; Hematocrit 32.6 % (36-47); Lymphocytes # 1.7 10^3/uL (0.8-4.8); Lymphocytes % 18.8 %; Mean Corpuscular HGB Conc 33.1 g/dL (30-55); Mean Corpuscular Hemoglobin 27.9 pg (27-33); Mean Corpuscular Volume 84.2 fl (85-98); Mean Platelet Volume 11.4 fL (7.4-10.4); Monocytes # 0.6 10^3/uL (0.2-0.9); Monocytes % 6.4 %; Neutrophils # 6.83 10^3/uL (1.8-7.7); Neutrophils % 73.7 %; Nucleated Red Blood Cells % 0 %; Platelet Count 216 10^3/cmm (157-399); Red Blood Count 3.87 10^6/uL (3.85-5.65); Red Cell Distribution Width 13.9 % (12.1-15.1); White Blood Count 9.27 10^3/uL (3.29-11.43)
[2023-11-27] MEDS: miSOPROStol 100 mcg tablet 25 MCG VAGINAL (17:34)
[2023-11-27] MEDS: lactated ringers 1,000 ML 999 ML IV ×3 (19:10→21:13)
[2023-11-27 19:14] LABS: Amphetamines Screen Urine Negative (Negative); Barbiturates Screen Urine Negative (Negative); Benzodiazepines Screen Urine Negative (Negative); Cocaine Screen Urine Negative (Negative); Opiate Screen Urine Negative (Negative); PCP Screen Urine Negative (Negative); THC Screen Urine Negative (Negative)
[2023-11-27] MEDS: ROPivacaine syringe 100 MG/50 ML SYRINGE 13 MG EPIDURAL (20:30)
--- NOTE | 2023-11-27 20:35 | P.ANESASSM_ITS ---
Pre-Anesthetic Assessment Height/Weight: Height 1.68 m Weight 79.379 kg Pulse Resp BP Pulse Ox O2 Del Method 68 16 118/57 100 Room Air 11/27/23 20:33 11/27/23 15:54 11/27/23 20:33 11/27/23 20:17 11/27/23 17:37 Preop Diagnosis: intrauterine labor epidural Familial anesthetic complications: none Was Beta Jeffrey taken within 24 hours: N/A Was Clonidine taken within 24 hours: N/A Last intake: soilds >8 hr, liquid @2000 Social No alcohol and No tobacco Exam alert, oriented x 3 and clear to auscultation bilaterally Airway Mallampati: Class II Dentition: full History/ROS No significant history except as noted Pulmonary Asthma (has not used inhaler in years ) CV/HEM Anemia None reported Hepatic None reported GI None reported Metabolic None reported Musc/skel None reported Neuropsych None reported Anesthetic Plan ASA status: 2 Anesthesia: Anesthesia Evaluation and Regional (specify below) (epidural ) Risk of > 500 ml blood loss (7ml/kg in children): Yes, adequate IV access and fluids planned Medications/Allergies Home Medications Medication Instructions Recorded Confirmed Last Taken Type vit no.95-ferrous 1 tab PO DAILY 04/21/23 11/27/23 10/07/23 08:00 History fumarate 28 mg-folic acid 800 mcg tablet () buspirone 5 mg tablet 5 mg PO BID #60 tabs 09/03/23 11/27/23 Unknown Rx ferrous sulfate 325 mg (65 mg 325 mg PO BID #60 tabs 10/23/23 11/27/23 Unknown Rx iron) tablet Allergies Allergy/AdvReac Type Severity Reaction Status Date / Time coconut Allergy ADR-Swelling Verified 11/27/23 10:45 of the Eye latex Allergy ALGY-Hives Verified 11/27/23 10:45 nut - unspecified Allergy ALGY-Anaphy Verified 11/27/23 10:45 laxis Penicillins Allergy ALGY-Rash Verified 11/27/23 10:45 Current Medications Generic Name Dose Route Start Last Admin Trade Name Freq PRN Reason Stop Dose Admin Lactated Ringer's 1,000 mls @ 999 mls/hr 11/27/23 19:08 11/27/23 19:50 Lactated Ringers IV 999 mls/hr .Q1H1M PRN Administration See label comments Misoprostol 25 mcg 11/27/23 16:00 11/27/23 17:34 Misoprostol 100 Mcg Tablet VAGINAL 11/28/23 00:01 25 mcg Q4H CATHLEEN Administration PFSH Anesthesia Medical History No pertinent past medical history neghx:htn,dm,thyroid,dvt/pe PCP: none Surgical History No pertinent past surgical history Family History Grandmother Breast cancer maternal Father Diabetes Grandfather Diabetes paternal Denies family history of Colon cancer Ovarian cancer Ovarian cyst Heart disease Hypertension Uterine cancer Thyroid disease Social History Smoking and tobacco/nicotine status: current every day tobacco/nicotine user Female Reproductive History : 4 Data Anesthesia 11/27/23 16:45 Short CBC 11/27/23 Range/Units 16:45 WBC 9.27 (3.29-11.43) 10^3/uL Hgb 10.80 L (11.27-16.99) g/dL Hct 32.6 L (36-47) % MCV 84.2 L (85-98) fl Plt Count 216 (157-399) 10^3/cmm Neut % (Auto) 73.7 % Neut # (Auto) 6.83 (1.8-7.7) 10^3/uL Blood Bank 11/27/23 16:45 Blood Type O Positive Rho(D) Type Rh positive Antibody Screen Negative Cardiac Studies: 2 No Data to Display Anesthesia Procedures Epidural Time Out Performed: Yes Consents Signed: Procedure Consent Consent: requested by attending/covering physician, from patient, risks and benefits reviewed and patient agrees to proceed Lumbar Level: L4-L5 Epidural position: sitting Epidural procedure: sterile prep of area, 1% lidocaine to numb the area, 18 g needle, negative for paresthesia passed, neg for paresthesia, test dose given, 1.5% xylocaine 1:200k epi, 0.2% Ropivacaine bolus ml (5), placed PCEA, no systemic response, sterile dressing applied, L.U.D. no apparent complications and 0.2% Ropiavacaine @ mls/hr (13) Additional Comments: PARKER 6cm, catheter easily threaded to 5cm in the space. VS monitored throughout procedure and remained stable. Pt educated on TRAFFIC ASSISTANT and report to RN at bedside
[2023-11-27] MEDS: dextrose 5%-lactated ringers 1,000 ML 125 ML IV (21:02)
[2023-11-27] MEDS: oxytocin 30 UNIT/500 ML BAG 600 UNIT IV (21:59)
--- NOTE | 2023-11-27 22:05 | PM.DELIVERY ---
Delivery Note: Date of delivery: November 27, 2023 Pre-delivery diagnoses: Term Post-delivery diagnoses: Term delivered Procedure: A spontaneous vaginal delivery Delivering Physician: Dago Ramírez MD Estimated blood loss (mL): 300 Pre-Delivery Course: Ms. Corona is a 23 year old established patient with LMP of 02/25/2023, CANDICE 12/02/2023 consistent with 8 week dating ultrasound, placing her at 39-2/7 weeks CC: Elective induction HPI: Received appropriate care. Daily vitamins since start of care. labs have all been normal, including negative for HIV. She was found to negative for Group B Strep from screening at 36 weeks. She has gained approximately 13.69 lbs throughout the . She denies a history of HTN during . Glucose tolerance screening for gestational diabetes was negative. Delivery: I was called by the nurse when the patient was noted to be pushing, and she had a precipitous spontaneous vaginal delivery with epidural anesthesia. At 2140 the patient delivered a viable term female infant weighing 3010 g with scores of 8 and 9 at one and five minutes, respectively. The vertex was delivered spontaneously over intact perineum.The was noted to have spontaneous cry and spontaneous movement of all four extremities. The cord was clamped x 2 and cut and noted to have 2 arteries and one vein. The infant was at the mother's abdomen where nursing personnel were in attendance. The placenta delivered intact spontaneously and the uterus was explored. 20 units of Pitocin was placed in the IV bag to firm the uterus. Examination of the cervix and vaginal vault did not reveal any lacerations. Examination of the perineum showed no lacerations. The patient tolerated this procedure well, and recovered in L&D with her in their LDR room. All sponge and needle counts were correct. Post-Delivery Status: Good and stable History History History 4 Term 2 1 Miscarriages/Ectopic 0 Living Children 3 Coding Level of Care Code Acute Code for Chg Fwd
[2023-11-28 01:45] VITALS: BP 110/63; PULSE 72; TEMP 36.8; O2SAT 99
[2023-11-28] MEDS: HYDROcodone-acetaminophen 5-325 mg Tablet PO ×3 (01:57→20:34)
[2023-11-28 03:45] VITALS: BP 99/66; PULSE 69; RESP 16; TEMP 36.7; O2SAT 98
--- NOTE | 2023-11-28 06:00 | ANE.PACU2 ---
Inpatient post-anesthesia follow up: Airway intact: Yes Vital signs: Temperature 98.1 F Pulse Rate 75 Respiratory Rate 16 Blood Pressure 103/66 Pulse Oximetry 100 Oxygen Delivery Me thod Room Air Oxygen Flow Rate Fraction of Inspir ed Oxygen Hydration adequate: Yes Nausea and vomiting: No Pain level: 1 Mental status: Baseline Epidural Start/End: Epidural Start Date: 11/27/23 Epidural Start Time: 20:15 Epidural End Date: 11/27/23 Epidural End Time: 22:50
[2023-11-28 06:49] VITALS: BP 94/60; PULSE 64; RESP 16; O2SAT 100
[2023-11-28] MEDS: docusate sodium 100 mg Capsule PO ×2 (08:04→17:59)
[2023-11-28] MEDS: ibuprofen 800 mg tablet PO ×3 (08:04→20:34)
[2023-11-28] MEDS: PRENATAL VIT NO.130/IRON/FOLIC 1 EACH TABLET PO (08:04)
[2023-11-28 10:30] VITALS: BP 104/69; PULSE 69; RESP 16; TEMP 36.6
[2023-11-28 11:44] LABS: Hematocrit 32.9 % (36-47); Mean Corpuscular HGB Conc 31.9 g/dL (30-55); Mean Corpuscular Volume 84.6 fl (85-98); Mean Platelet Volume 11.2 fL (7.4-10.4); Platelet Count 208 10^3/cmm (157-399); Red Blood Count 3.89 10^6/uL (3.85-5.65); White Blood Count 9.36 10^3/uL (3.29-11.43)
[2023-11-28 14:36] VITALS: BP 103/66; PULSE 75; RESP 16; TEMP 36.7
--- NOTE | 2023-11-28 17:50 | PM.OBGYDC ---
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 Corona is a 23 year old established patient with LMP of 02/25/2023, CANDICE 12/02/2023 consistent with 8 week dating ultrasound, placing her at 39-2/7 weeks when admitted for elective induction CC: Elective induction HPI: Received appropriate care. Daily vitamins since start of care. labs have all been normal, including negative for HIV. She was found to negative for Group B Strep from screening at 36 weeks. She has gained approximately 13.69 lbs throughout the . She denies a history of HTN during . Glucose tolerance screening for gestational diabetes was negative. She was given misoprostol x 1 for cervical ripening and she had fast progression of labor to a precipitous spontaneous vaginal delivery with epidural anesthesia. At 2140 the patient delivered a viable term female infant weighing 3010 g with scores of 8 and 9. Overnight observation was uneventful. She is afebrile and hemodynamically stable day 1. Tolerating diet well. Ambulating without difficulty. She was counseled regarding pelvic rest for 6 weeks (no sex, no tampons, no vaginal douches). Return to the emergency room if any fever, increased bleeding or pain. Information Peripartum Data: Delivery Method: Vaginal Physical Exam Narrative: GA; alert and oriented x 3 HEENT: normal Breasts: engorged Nipples - skin intact Lungs; clear to auscultation Heart: regular rhythm, no murmurs. Abd: Appropriately tender. BS+. Uterine fundus below umbilicus. No Fundal Tenderness. Perineum: normal lochia. Extremities: no edema, no cyanosis, no tenderness. History History History 4 Term 2 1 Miscarriages/Ectopic 0 Living Children 3 Discharge Data Studies Completed and Pending Laboratory Results WBC 9.36 10^3/uL (3.29-11.43) 11/28/23 11:14 RBC 3.89 10^6/uL (3.85-5.65) 11/28/23 11:14 Hgb 10.50 g/dL (11.27-16.99) L 11/28/23 11:14 Hct 32.9 % (36-47) L 11/28/23 11:14 MCV 84.6 fl (85-98) L 11/28/23 11:14 MCH 27.0 pg (27-33) 11/28/23 11:14 MCHC 31.9 g/dL (30-55) 11/28/23 11:14 RDW 14.0 % (12.1-15.1) 11/28/23 11:14 Plt Count 208 10^3/cmm (157-399) 11/28/23 11:14 MPV 11.2 fL (7.4-10.4) H 11/28/23 11:14 Neut % (Auto) 73.7 % 11/27/23 16:45 Lymph % (Auto) 18.8 % 11/27/23 16:45 [place] % (Auto) 6.4 % 11/27/23 16:45 Eos % (Auto) 0.5 % 11/27/23 16:45 Baso % (Auto) 0.2 % 11/27/23 16:45 Neut # (Auto) 6.83 10^3/uL (1.8-7.7) 11/27/23 16:45 Lymph # (Auto) 1.7 10^3/uL (0.8-4.8) 11/27/23 16:45 [place] # (Auto) 0.6 10^3/uL (0.2-0.9) 11/27/23 16:45 Eos # (Auto) 0.1 10^3/uL (0.0-0.8) 11/27/23 16:45 Baso # (Auto) 0.0 10^3/uL (0.0-0.1) 11/27/23 16:45 Nucleated RBC % (auto) 0 % 11/27/23 16:45 Nucleated RBCs # 0.0 /100WBC 11/27/23 16:45 Urine Opiates Screen Negative ng/mL (Negative) 11/27/23 18:00 Ur Barbiturates Screen Negative ng/mL (Negative) 11/27/23 18:00 Ur Phencyclidine Scrn Negative ng/mL (Negative) 11/27/23 18:00 Ur Amphetamines Screen Negative ng/mL (Negative) 11/27/23 18:00 U Benzodiazepines Scrn Negative ng/mL (Negative) 11/27/23 18:00 Urine Cocaine Screen Negative ng/mL (Negative) 11/27/23 18:00 U Marijuana (THC) Screen Negative ng/mL (Negative) 11/27/23 18:00 Blood Type O Positive 11/27/23 16:45 Rho(D) Type Rh positive 11/27/23 16:45 Antibody Screen Negative 11/27/23 16:45 Vitals Last Vital Signs Temp 98.1 F 11/28/23 14:36 Pulse 75 11/28/23 14:36 Resp 16 11/28/23 14:36 BP 103/66 11/28/23 14:36 Pulse Ox 100 11/28/23 06:49 O2 Del Method Room Air 11/28/23 10:30 Results Labs OB ([facility]): Obstetrics US 10/22/23 Blood Type O Positive 11/27/23 Antibody Screen Negative 11/27/23 Hct 32.9 % (36-47) L 11/28/23 Hgb 10.50 g/dL (11.27-16.99) L 11/28/23 Rho(D) Type Rh positive 11/27/23 Plt Count 208 10^3/cmm (157-399) 11/28/23 C.trachomatis RNA (TMA) Not detected (NOT DETECTED) 05/26/23 N.gonorrhoeae RNA (TMA) Not detected (NOT DETECTED) 05/26/23 T. vaginalis Amp RNA Not detected (NOT DETECTED) 05/26/23 Chlamydia/GC Comment See note 05/26/23 Glucose 1 Hr 50 gm 128 mg/dL (85-140) 09/03/23 Ser , Semi-Qnt 32238.00 mIU/mL 05/06/23 HCG, Qual Positive (Negative) H 04/25/23 Urine Opiates Screen Negative ng/mL (Negative) 11/27/23 Ur Barbiturates Screen Negative ng/mL (Negative) 11/27/23 Ur Phencyclidine Scrn Negative ng/mL (Negative) 11/27/23 Ur Amphetamines Screen Negative ng/mL (Negative) 11/27/23 U Benzodiazepines Scrn Negative ng/mL (Negative) 11/27/23 Urine Cocaine Screen Negative ng/mL (Negative) 11/27/23 U Marijuana (THC) Screen Negative ng/mL (Negative) 11/27/23 Micro Urine Specimen 05/08/23 Pap Smear Interpret See note 05/26/23 Discharge Plan Discharge Patient Disposition: Home Condition: Stable Prescriptions: New ferrous sulfate [Iron (ferrous sulfate)] 325 mg (65 mg iron) tablet 325 mg PO BID Qty: 60 0RF ibuprofen 800 mg tablet 800 mg PO TID PRN (Reason: pain) Qty: 60 0RF acetaminophen 325 mg capsule 325 mg PO Q4H PRN (Reason: fever or pain) Qty: 60 0RF Continued buspirone 5 mg tablet 5 mg PO BID Qty: 60 0RF ferrous sulfate 325 mg (65 mg iron) tablet 325 mg PO BID Qty: 60 2RF PNV [id number] fumarate-FA [] 28 mg iron- 800 mcg Tablet 1 tab PO DAILY Discharge Orders: Discharge Order (Routine); Ordered 11/28/23 Ordered By: Dago Ramírez Referrals: Dago Ramírez MD [Physician] - 6 Weeks Discharge Diet: Usual diet Discharge Activity: Limit activity as instructed Patient Instructions: Depression (DC), Opioid Safety (DC), Preeclampsia and Eclampsia After Delivery (GEN), Hemorrhage (DC), OB Discharge Report, OB Food/Drug Interaction Guide, Opioid Safety, OB Home Care, OB Vaginal Deliveries - [facility], Abnormal Bleeding Activity Restrictions/Additional Instructions: 1. Please call [facility] on next working day to make your appointment in 6 weeks. 2. Please stay home until you come back to the clinic on first post-hospatilization check up. 3. Please follow instructions on your medications CAREFULLY. 4. If you have abdominal incision, do not cover it unless dressing is necessary because of drainage. OK to shower, but avoid bath. Leave steri-strips until they fall off. If they are still on one week after surgery, you may remove them. 5. If you had vaginal surgery or vaginal repair, Dr. Ramírez may instruct you to take SITZ bath. 6. Yellow, blood tinged odorous vaginal discharge is usually normal after hysterectomy or vaginal surgeries. 7. No SEXUAL INTERCOURSE, tampons, or douches until you are completely released from the post-operative care. 8. Avoid constipation by eating right and maybe using some Metamucil or Milk of Magnesia. 9. All prescription refills are given during the working hours. Please do no wait till it runs out. Call the clinic at [phone] before your medication runs out. The clinic will get in touch with your doctor to prescribe medications if necessary. 10. Please remain within 40 mile radius from our hospital because emergencies do happen now and then during the post-operative period. 11. If you have stairs at home, take one step at a time slowly and minimize the number of trips. It helps to stay in one floor for the next few days. No lifting except what you can lift by one hand until you are released from the post-operative care. 12. Driving is discouraged until you are well healed. It may be 3-4 weeks before you feel strong enough to drive. You should be able to turn and look through the rear window without pain and you should be able to push the brake pedal very hard without pain before you drive. No fast rules, but SAFETY should be your primary concern. DO NOT drive if you are on sedating medications such as narcotics. 13. Call the clinic (during working hours) to make urgent appointment or go to the Emergency room, if any of the following occurs: i. Vaginal bleeding becomes heavy, more than a period. ii. Incision becomes red and sore, or drains pus. iii. Your TEMPERATURE is over 100.4F or you have chill. iv. IV site becomes red and swollen (a little ``knot?? is usually OK) v. Persistent nausea and vomiting vi. Persistent constipation or diarrhea vii. Rash or allergic reaction to medications. 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
[2023-11-28] MEDS: lanolin oint 7 gm 1 APPLIC TOPICAL (17:59)
[2023-11-28 21:30] LABS: Rubella IgG 65.1 IU/mL (0.0-10.0)
[2023-11-28] MEDS: medroxyprogesterone 150 mg/ml SDV 1 mL IM (23:55)
[2023-11-28 23:59] VITALS: BP 109/64; PULSE 81; RESP 16; TEMP 36.8
== END 2023-11-28 23:59 | disposition home or self-care (01) | DRG 807 ==
LOC: OPOB 15:33 → OBGYN 15:33
PROVIDERS: Admitting Provider Obstetrics & Gynecology; Visit Provider Obstetrics & Gynecology
DX: O48.0 Post-term pregnancy (principal); Z37.0 Single live birth; Z3A.39 39 weeks gestation of pregnancy
CPT/HCPCS: 36415; 59409; 80306; 85025; 85027; 86762; 86850; 86900; 96372; J1050; J2590; J2795; J7120; J7121

== ENCOUNTER 2024-01-05 10:43 | Emergency (ER) | payer MEDICAID, SELFPAY ==
--- NOTE | 2024-01-05 10:47 | XRR_ITS ---
PROCEDURE INFORMATION: Exam: XR Right Wrist Exam date and time: 01/05/2024 10:50 AM Age: 23 years old Clinical indication: Injury or trauma; Other: Twisted wrist; Sprain or strain; Right. No history of surgery is provided. TECHNIQUE: Imaging protocol: Radiologic exam of the right wrist. 3image(s) are provided. Views: 3 or more views. COMPARISON: No relevant prior studies are currently available. FINDINGS: Bones/joints: Osseous alignment is maintained. No displaced fracture or dislocation is appreciated. Carpal alignment appears overall maintained. There is some radiocarpal level narrowing which may also be developmental related. There is some borderline distance at the scapholunate junction and could be seen with some sprain related sequela. Soft tissues: No radiopaque foreign body or subcutaneous emphysema is appreciated. XR/XR wrist RT min 3V* [id number] IMPRESSION: Osseous alignment is maintained with no displaced fracture or dislocation appreciated. There is some borderline distance at the scapholunate junction and could also be seen with some ligamentous sprain related sequela.
[2024-01-05 12:27] VITALS: BP 97/66; PULSE 73; RESP 16; TEMP 36.8; O2SAT 100; BMI 25.8
== END 2024-01-05 12:54 | disposition left against medical advice (07) ==
PROVIDERS: Emergency Provider Family Medicine
DX: Z53.21 Procedure and treatment not carried out due to patient leaving prior to being seen by health care provider (principal); S69.91XA Unspecified injury of right wrist, hand and finger(s), initial encounter; X58.XXXA Exposure to other specified factors, initial encounter
CPT/HCPCS: 73110

== ENCOUNTER 2024-05-18 06:54 | Emergency (ER) | payer SELFPAY ==
[2024-05-18 06:58] VITALS: PULSE 74; RESP 16; TEMP 36.8; O2SAT 97; BMI 27.4
[2024-05-18 07:06] LABS: Basophils % 0.3 %; Eosinophils # 0.2 10^3/uL (0.0-0.8); Eosinophils % 1.4 %; Lymphocytes # 2.3 10^3/uL (0.8-4.8); Lymphocytes % 15.6 %; Mean Corpuscular HGB Conc 32.7 g/dL (30-55); Mean Corpuscular Hemoglobin 27.6 pg (27-33); Mean Corpuscular Volume 84.5 fl (85-98); Mean Platelet Volume 11.9 fL (7.4-10.4); Monocytes # 0.9 10^3/uL (0.2-0.9); Monocytes % 6.1 %; Neutrophils # 10.97 10^3/uL (1.8-7.7); Neutrophils % 76.3 %; Nucleated Red Blood Cells % 0 %; Platelet Count 257 10^3/cmm (157-399); Red Blood Count 5.68 10^6/uL (3.85-5.65); Red Cell Distribution Width 14.2 % (12.1-15.1); White Blood Count 14.39 10^3/uL (3.29-11.43)
--- NOTE | 2024-05-18 07:06 | W.ED.NAVMDI ---
HPI - Nausea/Vomiting/Diarrhea General: Chief complaint: Nausea/Vomiting/Diarrhea Stated complaint: n/v Time Seen by Provider: 05/18/24 06:55 History of Present Illness: 23-year-old female presents emergency room via EMS with complaints of nausea vomiting and diarrhea. Began overnight. No hematochezia or melena she thinks may have seen some small streaks of blood in the vomitus but nothing large. She is late for her menstrual period and is concerned she might be . She denies any fever no dysuria urgency or frequency Associated nausea: Yes Associated symtoms: Reports nausea; Denies chest pain or dysuria Related Data Previous Rx's ?Medication ?Instructions ?Recorded acetaminophen 325 mg capsule 325 mg PO Q4H PRN fever or pain 11/28/23 #60 caps ibuprofen 800 mg tablet 800 mg PO TID PRN pain #60 tabs 11/28/23 medroxyprogesterone 150 mg/mL 150 mg IM ONCE 12 weeks #84 mL 12/24/23 intramuscular suspension (Depo-Provera) promethazine 25 mg tablet 25 mg PO Q6H PRN nausea and 05/18/24 vomiting #20 tabs Allergies Allergy/AdvReac Type Severity Reaction Status Date / Time coconut Allergy ADR-Swelling Verified 01/05/24 12:32 of the Eye latex Allergy ALGY-Hives Verified 01/05/24 12:32 nut - unspecified Allergy ALGY-Anaphy Verified 01/05/24 12:32 laxis Penicillins Allergy ALGY-Rash Verified 01/05/24 12:32 Review of Systems Const: Denies: fever(s) or chills Card: Denies: chest pain Resp: Denies: dyspnea GI: Reports: nausea, vomiting and diarrhea; Denies: abdominal pain : Denies: dysuria, urinary frequency or urinary urgency Musc: Denies: neck pain or back pain Skin/Breast: Denies: rash PFSH ED PFSH: Medical History No pertinent past medical history neghx:htn,dm,thyroid,dvt/pe PCP: none Surgical History No pertinent past surgical history Family History Grandmother Breast cancer maternal Father Diabetes Grandfather Diabetes paternal Denies family history of Colon cancer Ovarian cancer Ovarian cyst Heart disease Hypertension Uterine cancer Thyroid disease Social History Smoking and tobacco/nicotine status: current every day tobacco/nicotine user Physical Exam Const: GENERAL APPEARANCE: cooperative ORIENTATION/CONSCIOUSNESS: Yes awake, Yes oriented to person, Yes oriented to place and Yes oriented to time HENMT: COMMON NORMALS: normocephalic, atraumatic and hearing grossly normal bilaterally HEAD & SCALP: normocephalic and atraumatic Resp: COMMON NORMALS: normal respiratory effort, No retractions, No use of accessory muscles and clear to auscultation bilaterally AUSCULTATION: clear to auscultation bilaterally Cardio: COMMON NORMALS: regular rate, regular rhythm and No murmurs present (Cardio) RATE: regular rate RHYTHM: regular rhythm GI: COMMON NORMALS: Soft to palpation and No hepatosplenomegaly present AUSCULTATION: Yes normoactive bowel sounds PALPATION: Yes Soft to palpation, No Tenderness to palpation present (GI), No Guarding due to palpation present (GI) and Yes No hepatosplenomegaly present Extremity: COMMON NORMALS: normal to inspection, capillary refill normal, no clubbing, cyanosis or edema, no calf tenderness and no pedal edema Neuro: SENSORIUM/ORIENTATION: Yes oriented to person, Yes oriented to place and Yes oriented to time Skin: COMMON NORMALS: no rashes or lesions noted GENERAL SKIN EXAM: no rashes or lesions noted Course Vital Signs: Vital signs: Vital Signs Temperature 98.3 F 05/18/24 06:58 Pulse Rate 68 05/18/24 09:26 Respiratory Rate 16 05/18/24 06:58 Blood Pressure 94/48 05/18/24 09:26 Pulse Oximetry 100 05/18/24 09:26 Oxygen Delivery Me thod Room Air 05/18/24 08:00 MDM - Nausea/Vomiting/Diarrhea Medical Decision Making Laboratory test reviewed does have some leukocytosis CT shows skin aplasia small bowel consistent with gastroenteritis which is concurrent with her presenting symptoms. Discharge home with clinical diet advance as tolerated and gave prescription for promethazine to use as needed follow-up as needed Medical Records I reviewed the patient's medical records. Lab Data I reviewed the patient's lab results. 05/18/24 06:35 05/18/24 06:35 Radiology Impressions Abdomen/Pelvis CT 05/18/24 07:59 IMPRESSION: 1. No evidence of acute appendicitis. 2. Suspected small bowel enteritis in the LEFT upper quadrant. 3. No free fluid in the abdomen or pelvis. 4. No hydronephrosis. 5. Tiny esophageal hiatal hernia 6. 1.5 cm peripherally enhancing corpus luteum cyst. Laboratory Results WBC 14.39 10^3/uL (3.29-11.43) H 05/18/24 06:35 RBC 5.68 10^6/uL (3.85-5.65) H 05/18/24 06:35 Hgb 15.70 g/dL (11.27-16.99) 05/18/24 06:35 Hct 48.0 % (36-47) H 05/18/24 06:35 MCV 84.5 fl (85-98) L 05/18/24 06:35 MCH 27.6 pg (27-33) 05/18/24 06:35 MCHC 32.7 g/dL (30-55) 05/18/24 06:35 RDW 14.2 % (12.1-15.1) 05/18/24 06:35 Plt Count 257 10^3/cmm (157-399) 05/18/24 06:35 MPV 11.9 fL (7.4-10.4) H 05/18/24 06:35 Neut % (Auto) 76.3 % 05/18/24 06:35 Lymph % (Auto) 15.6 % 05/18/24 06:35 [place] % (Auto) 6.1 % 05/18/24 06:35 Eos % (Auto) 1.4 % 05/18/24 06:35 Baso % (Auto) 0.3 % 05/18/24 06:35 Neut # (Auto) 10.97 10^3/uL (1.8-7.7) H 05/18/24 06:35 Lymph # (Auto) 2.3 10^3/uL (0.8-4.8) 05/18/24 06:35 [place] # (Auto) 0.9 10^3/uL (0.2-0.9) 05/18/24 06:35 Eos # (Auto) 0.2 10^3/uL (0.0-0.8) 05/18/24 06:35 Baso # (Auto) 0.0 10^3/uL (0.0-0.1) 05/18/24 06:35 Nucleated RBC % (auto) 0 % 05/18/24 06:35 Nucleated RBCs # 0.0 /100WBC 05/18/24 06:35 Sodium 140 mmol/L (136-145) 05/18/24 06:35 Potassium 3.9 mmol/L (3.5-5.1) 05/18/24 06:35 Chloride 103 mmol/L (98-107) 05/18/24 06:35 Carbon Dioxide 18 mmol/L (22-29) L 05/18/24 06:35 Anion Gap 22.9 (5-19) H 05/18/24 06:35 BUN 16 mg/dL (6-20) 05/18/24 06:35 Creatinine 0.9 mg/dL (0.5-0.9) 05/18/24 06:35 GFR Calculation 76.9 mL/min (90-130) L 05/18/24 06:35 Glucose 129 mg/dL (65-115) H 05/18/24 06:35 Calculated Osmolality 293 mOsm/kg (285-295) 05/18/24 06:35 Calcium 9.9 mg/dL (8.5-10.5) 05/18/24 06:35 Total Bilirubin 0.7 mg/dL (0.15-1.2) 05/18/24 06:35 AST 21 U/L (0-32) 05/18/24 06:35 ALT 18 U/L (0-33) 05/18/24 06:35 Alkaline Phosphatase 93 U/L (35-105) 05/18/24 06:35 Total Protein 9.1 g/dL (6.6-8.7) H 05/18/24 06:35 Albumin 5.1 g/dL (3.5-5.2) 05/18/24 06:35 Globulin 4.0 g/dL (1.3-4.6) 05/18/24 06:35 Lipase 21 U/L (13-60) 05/18/24 06:35 HCG, Qual Negative (Negative) 05/18/24 06:35 Influenza A (PCR) Negative (Negative) 05/18/24 07:18 Influenza Type B (PCR) Negative (Negative) 05/18/24 07:18 RSV (PCR) Negative (Negative) 05/18/24 07:18 SARS-CoV-2 (PCR) Negative (Negative) 05/18/24 07:18 All radiology interpretation(s) finalized by discharge Discharge Plan Discharge Patient Disposition: Home Clinical Impression: Gastroenteritis Condition: Stable Prescriptions: New promethazine 25 mg tablet 25 mg PO Q6H PRN (Reason: nausea and vomiting) Qty: 20 0RF No Action medroxyprogesterone [Depo-Provera] 150 mg/mL suspension 150 mg IM ONCE 84 Days Qty: 84 3RF ibuprofen 800 mg tablet 800 mg PO TID PRN (Reason: pain) Qty: 60 0RF acetaminophen 325 mg capsule 325 mg PO Q4H PRN (Reason: fever or pain) Qty: 60 0RF Discharge Orders: Discharge ED (Routine); Ordered 05/18/24 Ordered By: Paulino Roper Discharge Diet: Clear Liquid Discharge Activity: Increase activity as tolerated Patient Instructions: Gastroenteritis (ED), Opioid Safety, Pain Management Activity Restrictions/Additional Instructions: Thank you for choosing [facility] for your healthcare needs today. It is very important that you follow up as instructed or that you return to the Emergency Department should you have concerns or if your condition changes or worsens in any way. You were seen in the emergency room with complaints of vomiting and diarrhea there was a slight elevation in your white count. You were given IV fluids nausea medications CT shows some mild small bowel inflammation suggestive of a gastroenteritis. Recommend clear liquid diet for the next 24 to 48 hours. Given promethazine to use as needed for nausea. As your symptoms begin to improve you can advance your diet as tolerated. Print Language: [place] Coding Level of Care Code ED Registered Vascular Technologist (Rvt) for Ceci Vallecillo
[2024-05-18 07:20] LABS: HCG, Serum Qual Negative (Negative)
[2024-05-18 07:24] LABS: Alanine Aminotransferase 18 U/L (0-33); Albumin Level 5.1 g/dL (3.5-5.2); Alkaline Phosphatase 93 U/L (35-105); Anion Gap 22.9 (5-19); Aspartate Amino Transferase 21 U/L (0-32); Blood Urea Nitrogen 16 mg/dL (6-20); Calcium 9.9 mg/dL (8.5-10.5); Carbon Dioxide 18 mmol/L (22-29); Chloride 103 mmol/L (98-107); Creatinine Clr Calc Pharmacy 101.0717; Glomerular Filtration Rate 76.9 mL/min (90-130); Glucose 129 mg/dL (65-115); Lipase 21 U/L (13-60); Osmolality Calculated 293 mOsm/kg (285-295); Potassium 3.9 mmol/L (3.5-5.1); Sodium 140 mmol/L (136-145); Total Bilirubin 0.7 mg/dL (0.15-1.2); Total Protein 9.1 g/dL (6.6-8.7)
[2024-05-18] MEDS: sodium chloride 0.9% 1,000 ML 999 ML IV (07:59)
--- NOTE | 2024-05-18 07:59 | CT_ITS ---
WS: [id number] CT ABDOMEN PELVIS TECHNIQUE: Contrast-enhanced CT of the abdomen and pelvis with coronal and sagittal reformatted images. CLINICAL INFORMATION: abd pain COMPARISON: CT 12/28/2022 DLP: 782.[address] scans at [facility] use at least one of these dose optimization techniques: automated exposure control; mA and/or kV adjustment per patient size (includes targeted exams where dose is matched to clinical indication); or iterative reconstruction. FINDINGS: Hepatic steatosis. Tiny esophageal hiatal hernia. Lung bases are well aerated. Normal portal vein and splenic vein. Normal spleen. Adrenal glands are normal. Normal renal parenchymal enhancement. No hydronephrosis. Normal caliber abdominal aorta. Tiny fat-containing umbilical hernia. Normal sigmoid colon. No evidence of acute appendicitis. A few fluid distended loops of small bowel in the LEFT upper quadrant with prominent mucosal enhancement suspicious for small bowel enteritis. No free fluid in the abdomen or pelvis. 1.5 cm peripherally enhancing corpus luteum cyst. No other acute findings. CT/CT abdomen pelvis w con* [id number] IMPRESSION: 1. No evidence of acute appendicitis. 2. Suspected small bowel enteritis in the LEFT upper quadrant. 3. No free fluid in the abdomen or pelvis. 4. No hydronephrosis. 5. Tiny esophageal hiatal hernia 6. 1.5 cm peripherally enhancing corpus luteum cyst.
[2024-05-18 08:00] VITALS: BP 110/68; PULSE 70; O2SAT 100
[2024-05-18 08:02] LABS: Influenza A NEGATIVE (Negative); Influenza B NEGATIVE (Negative); Respiratory Syncytial Virus Ce NEGATIVE (Negative); SARS-CoV-2 PCR NEGATIVE (Negative)
[2024-05-18] MEDS: iohexol 350 mg/mL 500 mL Btl (per mL) IV (08:09)
[2024-05-18 09:26] VITALS: BP 94/48; PULSE 68; O2SAT 100
== END 2024-05-18 09:32 | disposition home or self-care (01) ==
PROVIDERS: Emergency Provider Family Medicine
DX: K52.9 Noninfective gastroenteritis and colitis, unspecified (principal); Z11.52 Encounter for screening for COVID-19; Z72.0 Tobacco use
CPT/HCPCS: 74177; 80053; 83690; 84703; 85025; 87637; 96360; 99285; J7030